=== PATIENT | female | born 1935 | race African-American/Black ===

== ENCOUNTER 2017-12-23 14:10 | Emergency (ER) | payer OTHER, SELFPAY ==
--- NOTE | 2017-12-23 15:17 | RAD REPORT ---
EXAM DESCRIPTION: RAD - Chest Single View - 12/23/2017 2:56 pm CLINICAL HISTORY: Weakness, GI bleed, abdominal pain COMPARISON: March 2017 TECHNIQUE: AP portable chest image was obtained 1449 hours . FINDINGS: No peripheral mass, consolidation or failure finding. Heart size is upper normal similar t o comparison. Acute failure findings are not suspected. No measurable pleural effusion and no pneumot horax. Prominent shoulder joint degenerative changes are present. No acute bone findings seen. Aortic calcifications are present. No new or progressive aortic finding seen. IMPRESSION: No acute cardiopulmonary process. Above detailed chest findings are stable from March 2017.
[2017-12-23 15:25] LABS: Absolute Lymphocytes (CBC) 0.8 K/uL (0.7-4.9); Absolute Monocytes 0.5 K/uL (0.1-1.3); Absolute Neutrophil 3.6 K/uL (1.8-8.0); Basophils % 0.3 % (0-1.3); Eosinophils % 1.8 % (0-4.4); Hematocrit 32.1 % (36.0-45.0); Lymphocytes % 16.4 % (15.3-44.8); MCH 28.4 pg (27.0-35.0); MCV 86.5 fL (80-100); Monocytes % 10.6 % (3.3-12.3); RBC Red Blood Cell Count 3.71 M/uL (3.86-4.86)
[2017-12-23 15:32] LABS: Protime INR 1.08
[2017-12-23 15:38] LABS: Potassium 4.1 mEq/L (3.6-5.0)
[2017-12-23 15:45] LABS: Albumin 3.6 g/dL (3.2-5.5); Bilirubin Direct 0.1 mg/dL (0-0.2); Bilirubin Total 0.5 mg/dL (0.3-1.2); Protein, Total 6.9 g/dL (6.0-8.3)
--- NOTE | 2017-12-23 16:01 | RAD REPORT ---
EXAM DESCRIPTION: CT - Stone Protocol - 12/23/2017 3:36 pm CLINICAL HISTORY: Abdominal pain, black mello stools COMPARISON: CT imaging March 2017 TECHNIQUE: Axial 5 mm thick images were obtained without oral or IV contrast. The [id number] span s the entirety of the system including uppermost abdomen and lung bases. All CT scans are performed using dose optimization technique as appropriate and may include automated exposure control or mA/KV adjustment according to patient size. FINDINGS: No hydronephrosis is present and no obstructing ureteral calculi. No suspicious renal mass es. Isodense masses and pyelonephritis are not excluded on a stone protocol CT scan. Urinary bladder is mostly contracted. [place] artifact from the right hip prosthesis limits bladder and pelvic floor as sessment. No bladder calculi suspected. Imaged portions of the liver, spleen and pancreas show no suspicious findings on non-contrast imaging . Cholecystectomy clips are present. The prominence of the biliary tree not outside of normal range f or post cholecystectomy status. No significant adrenal finding. No gastric dilatation or gastric wall thickening. No dilated small bowel or focal small bowel finding . Moderate stool volume scattered in the colon. No colon mass or active colon process identifiable. No hernia, mass or bulky lymphadenopathy noted. No free air, free fluid or inflammatory stranding. Disc and bony degenerative changes are present. An acute bone process is not seen. IMPRESSION: No mass, free air or other emergent CT abdomen and pelvis finding. The above detailed findings are not substantially different from comparison. Isodense masses and pyelonephritis are not excluded on stone protocol technique.
[2017-12-23] MEDS ORDERED: NA CHLORIDE 0.9% 1,000 ML ONE (16:46)
--- NOTE | 2017-12-23 17:37 | ER ---
Nurse's Notes [facility] Name: Nishant Finney Age: 82 yrs Sex: Female : 1935 Arrival Date: 12/23/2017 Time: 14:14 Bed 7 Private MD: Chucky Hernandez R Diagnosis: Encounter for screening for upper gastrointestinal disorder Presentation: 12/23 14:17 Presenting complaint: Patient states: i have been having black tarry stools since tw2 Friday, but none yesterday or today. Transition of care: patient was not received from another setting of care. Onset of symptoms was December 23, 2017. Risk Assessment: Do you want to hurt yourself or someone else? Patient reports no desire to harm self or others. Initial Sepsis Screen: Does the patient meet any 2 criteria? No. Patient's initial sepsis screen is negative. Does the patient have a suspected source of infection? No. Patient's initial sepsis screen is negative. Care prior to arrival: None. 14:17 Method Of Arrival: Wheelchair tw2 14:17 Acuity: JONO 3 tw2 Historical: - Allergies: 14:19 Codeine; tw2 - PMHx: 14:19 Diabetes - NIDDM; Hypertension; Rheumatoid Arthritis; tw2 - PSHx: 14:19 Hip replacement R; Hysterectomy; Appendectomy; R knee replacement x2; tw2 - Immunization history:: Adult Immunizations up to date. - Social history:: Smoking status: Patient/guardian denies using tobacco. - Ebola Screening: : Patient negative for fever greater than or equal to 101.5 degrees Fahrenheit, and additional compatible Ebola Virus Disease symptoms. Screenin:08 Abuse screen: Denies threats or abuse. Nutritional screening: No deficits noted. ae1 Tuberculosis screening: No symptoms or risk factors identified. Fall Risk None identified. Assessment: 15:03 General: Appears in no apparent distress. comfortable, Behavior is calm, cooperative. ae1 Pain: Denies pain. Neuro: Level of Consciousness is awake, alert, obeys commands, Oriented to person, place, time, situation. Cardiovascular: Heart tones S1 S2 present Patient's skin is warm and dry. Respiratory: Airway is patent Respiratory effort is even, unlabored, Respiratory pattern is regular, symmetrical, Breath sounds are clear bilaterally. GI: Abdomen is round Bowel sounds present X 4 quads. GI: Reports bloody stool. : No signs and/or symptoms were reported regarding the genitourinary system. EENT: wears glasses. . Derm: Skin is normal. Musculoskeletal: No signs and/or symptoms reported regarding the musculoskeletal system. 15:07 GI: Reports Patient states stools have been "black". ae1 16:02 Reassessment: Patient appears in no apparent distress at this time. No changes from ae1 previously documented assessment. Patient and/or family updated on plan of care and expected duration. Pain level reassessed. Vital Signs: 14:18 BP 117 / 48; Pulse 71; Resp 16; Temp 98.2(O); Pulse Ox 99% on R/A; Weight 66.22 kg (R); tw2 Height 5 ft. 3 in. (160.02 cm); Pain 0/10; 16:01 BP 145 / 48; Pulse 75; Resp 16; Pulse Ox 100% on R/A; ae1 17:15 BP 147 / 49; Pulse 76; Resp 19; Pulse Ox 100% ; ae1 14:18 Body Mass Index 25.86 (66.22 kg, 160.02 cm) tw2 ED Course: 14:14 Patient arrived in ED. rg4 14:15 Chucky Hernandez MD is Private Physician. rg4 14:17 Triage completed. tw2 14:18 Arm band placed on. tw2 14:20 Jeffrey Lee MD is Attending Physician. gs 14:37 EKG done, by technical photographer. reviewed by Jeffrey Lee MD. sm3 14:45 X-ray completed. Portable x-ray completed in exam room. Patient tolerated procedure jb2 well. 14:48 XRAY Chest (1 view) In Process Unspecified. EDMS 14:53 Inserted saline lock: 20 gauge in right antecubital area, using aseptic technique. ag Blood collected. 14:57 Lawrence Anton, LISA is Primary Nurse. ae1 15:07 Bed in low position. Call light in reach. Side rails up X 1. unemployment specialist on. Pulse ae1 ox on. NIBP on. Warm blanket given. 15:35 CT completed. Patient tolerated procedure well. Patient moved to CT via wheelchair. sj Patient moved back from CT. 15:35 CT Stone Protocol In Process Unspecified. 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 ae1 17:35 Sofiya Cardenas MD is Referral Physician. gs 17:35 Jaxon Garcia MD is Referral Physician. 18:14 IV discontinued, intact, bleeding controlled, No redness/swelling at site. Pressure ae1 dressing applied. Administered Medications: 16:47 Drug: NS 0.9% 1000 ml Route: IV; Rate: 1 bolus; Site: right antecubital; ae1 18:14 Follow up: IV Status: Completed infusion ae1 Outcome: 17:36 Discharge ordered by MD. 18:11 Discharged to home ambulatory, with family, with personal single crutch to assist with ae1 walking. 18:11 Condition: stable 18:11 Instructed on discharge instructions, follow up and referral plans. medication usage, Demonstrated understanding of instructions, Prescriptions given X 1. 18:14 Patient left the ED. ae1 Signatures: Dispatcher [employer] EDMS Everardo Briceno Susan sj Gallardo, Kat Mcduffie RN RN tw2 Lawrence Anton RN RN ae1 Zunilda Blackmon rg4 Jeffrey Lee MD MD Jaqueline Walker sm3 Corrections: (The following items were deleted from the chart) 14:19 14:18 Pulse 71bpm; Resp 16bpm; Pulse Ox 99% RA; Temp 98.2F Oral; 66.22 kg Reported; tw2 Height 5 ft. 3 in.; BMI: 25.8; Pain 0/10; tw2
--- NOTE | 2017-12-23 17:37 | EDPHYS ---
Physician Documentation [facility] Name: Nishant Finney Age: 82 yrs Sex: Female : 1935 Arrival Date: 12/23/2017 Time: 14:14 Bed 7 Private MD: Chucky Hernandez R ED Physician Jeffrey Lee HPI: 12/23 17:31 This 82 yrs old Black Female presents to ER via Wheelchair with complaints of DARK gs Stools. 17:31 The patient presents to the emergency department with rectal bleeding, melena. Onset: gs The symptoms/episode began/occurred 3 day(s) ago. Abdominal pain: none is appreciated. Associated signs and symptoms: Pertinent negatives: chest pain, dizziness at rest, dizziness when standing. Severity of symptoms: in the emergency department the symptoms have resolved 24 hour(s) prior to arrival. The patient has experienced similar episodes in the past, a few times. Historical: - Allergies: 14:19 Codeine; tw2 - PMHx: 14:19 Diabetes - NIDDM; Hypertension; Rheumatoid Arthritis; tw2 - PSHx: 14:19 Hip replacement R; Hysterectomy; Appendectomy; R knee replacement x2; tw2 - Immunization history:: Adult Immunizations up to date. - Social history:: Smoking status: Patient/guardian denies using tobacco. - Ebola Screening: : Patient negative for fever greater than or equal to 101.5 degrees Fahrenheit, and additional compatible Ebola Virus Disease symptoms. ROS: 17:31 All other systems are negative. gs Exam: 17:31 Head/Face: Normocephalic, atraumatic. Eyes: Pupils equal round and reactive to light, gs extra-ocular motions intact. Lids and lashes normal. Conjunctiva and sclera are non-icteric and not injected. Cornea within normal limits. Periorbital areas with no swelling, redness, or edema. ENT: Nares patent. No nasal discharge, no septal abnormalities noted. Tympanic membranes are normal and external auditory canals are clear. Oropharynx with no redness, swelling, or masses, exudates, or evidence of obstruction, uvula midline. Mucous membranes moist. Neck: Trachea midline, no thyromegaly or masses palpated, and no cervical lymphadenopathy. Supple, full range of motion without nuchal rigidity, or vertebral point tenderness. No Meningismus. Chest/axilla: Normal chest wall appearance and motion. Nontender with no deformity. No lesions are appreciated. Cardiovascular: Regular rate and rhythm with a normal S1 and S2. No gallops, murmurs, or rubs. Normal PMI, no JVD. No pulse deficits. Respiratory: Lungs have equal breath sounds bilaterally, clear to auscultation and percussion. No rales, rhonchi or wheezes noted. No increased work of breathing, no retractions or nasal flaring. Abdomen/GI: Soft, non-tender, with normal bowel sounds. No distension or tympany. No guarding or rebound. No evidence of tenderness throughout. Back: No spinal tenderness. No costovertebral tenderness. Full range of motion. Skin: Warm, dry with normal turgor. Normal color with no rashes, no lesions, and no evidence of cellulitis. MS/ Extremity: Pulses equal, no cyanosis. Neurovascular intact. Full, normal range of motion. Neuro: Awake and alert, GCS 15, oriented to person, place, time, and situation. Cranial nerves II-XII grossly intact. Motor strength 5/5 in all extremities. Sensory grossly intact. Cerebellar exam normal. Normal gait. 17:31 Constitutional: The patient appears alert, awake. 17:31 Abdomen/GI: Rectal exam: Stool: normal. 17:37 ECG was reviewed by the Attending Physician. Vital Signs: 14:18 BP 117 / 48; Pulse 71; Resp 16; Temp 98.2(O); Pulse Ox 99% on R/A; Weight 66.22 kg (R); tw2 Height 5 ft. 3 in. (160.02 cm); Pain 0/10; 16:01 BP 145 / 48; Pulse 75; Resp 16; Pulse Ox 100% on R/A; ae1 17:15 BP 147 / 49; Pulse 76; Resp 19; Pulse Ox 100% ; ae1 14:18 Body Mass Index 25.86 (66.22 kg, 160.02 cm) tw2 MDM: 14:37 Patient medically screened. 17:31 Differential diagnosis: gastritis, diverticulitis, hemorrhoids. Data reviewed: vital gs signs, nurses notes. Response to treatment: the patient's symptoms have markedly improved after treatment, and as a result, I will discharge patient. 12/23 14:26 Order name: Basic Metabolic Panel; Complete Time: 15:50 12/23 14:26 Order name: CBC with Diff; Complete Time: 15:50 12/23 14:26 Order name: LFT's; Complete Time: 15:50 12/23 14:26 Order name: PT-INR; Complete Time: 15:50 12/23 14:26 Order name: XRAY Chest (1 view); Complete Time: 15:50 12/23 14:26 Order name: Lipase; Complete Time: 15:50 12/23 14:26 Order name: EKG; Complete Time: 14:27 12/23 14:26 Order name: Cardiac monitoring; Complete Time: 14:53 12/23 14:26 Order name: EKG - Nurse/Tech; Complete Time: 14:52 12/23 14:26 Order name: IV Saline Lock; Complete Time: 14: 12/23 14:26 Order name: Labs collected and sent; Complete Time: 14:52 12/23 14:26 Order name: O2 Per Protocol; Complete Time: 14: 12/23 15:15 Order name: CT Stone Protocol; Complete Time: 16:15 12/23 14:26 Order name: O2 Sat Monitoring; Complete Time: 14:53 12/23 14:26 Order name: Urine Dipstick-Ancillary (obtain specimen); Complete Time: 14:53 gs EC:37 Rate is 66 beats/min. Rhythm is regular. QRS interval is prolonged. T waves are Normal. gs No ST changes noted. Clinical impression: Abnormal EKG without significant change. Interpreted by me. Administered Medications: 16:47 Drug: NS 0.9% 1000 ml Route: IV; Rate: 1 bolus; Site: right antecubital; ae1 18:14 Follow up: IV Status: Completed infusion ae1 Disposition: 12/23/17 17:36 Discharged to Home. Impression: Encounter for screening for upper gastrointestinal disorder. - Condition is Stable. - Discharge Instructions: Gastritis, Adult. - Prescriptions for Pepcid 20 mg Oral Tablet - take 1 tablet by ORAL route every 12 hours for 10 days; 20 tablet. - Medication Reconciliation Form, Thank You Letter, Antibiotic Education, Prescription Opioid Use form. - Follow up: Sofiya Cardenas MD; When: 2 - 3 days; Reason: Re-evaluation by your physician. Follow up: Radha, Jaxon, MD; When: 2 - 3 days; Reason: Re-evaluation by your physician. Signatures: Dispatcher [employer] Kat Pedroza RN RN tw2 Lawrence Anton RN RN ae1 Jeffrey Lee MD MD gs Corrections: (The following items were deleted from the chart) 18:14 17:36 12/23/2017 17:36 Discharged to Home. Impression: Encounter for screening for ae1 upper gastrointestinal disorder. Condition is Stable. Forms are Medication Reconciliation Form, Thank You Letter, Antibiotic Education, Prescription Opioid Use. Follow up: Sofiya Cardenas; When: 2 - 3 days; Reason: Re-evaluation by your physician. Follow up: Jaxon Garcia; When: 2 - 3 days; Reason: Re-evaluation by your physician. gs
[2017-12-23 18:24] VITALS: TEMP 98.2
[2017-12-23 18:26] VITALS: O2SAT 100
[2017-12-23 18:27] VITALS: BP 147/49
--- NOTE | 2017-12-23 18:34 | EKG ---
Test Date: 2017-12-23 Test Time: 14:37:54 Vocational Education Professional: DARLIN MEASUREMENT RESULTS: Intervals: Rate: 66 RI: 140 QRSD: 140 QT: 400 QTc: 419 [place]: P: 54 RI: 140 QRS: -24 T: 130 INTERPRETIVE STATEMENTS: Normal sinus rhythm Left bundle branch block Abnormal ECG Compared to ECG 03/22/2017 06:56:19 No significant changes Electronically Signed On 12-23-17 18:33:24 CDT by Loyd Stoddard
== END 2017-12-23 18:14 | disposition home or self-care (01) ==
LOC: ER 14:10
DX: Z13.810 Encounter for screening for upper gastrointestinal disorder (principal); I10 Essential (primary) hypertension; Z88.5 Allergy status to narcotic agent
CPT/HCPCS: 36415; 71045; 74176; 76377; 80048; 80076; 83690; 85025; 85610; 93005; J7030; 96360; 99285

== ENCOUNTER 2017-12-29 00:56 | Emergency (ER) | payer OTHER, SELFPAY ==
[2017-12-29] MEDS ORDERED: FENTANYL CITR 100 MCG/2 ML ONE (01:55)
[2017-12-29] MEDS ORDERED: ONDANSETRON 4 MG/2 ML VIAL ONE (01:56)
[2017-12-29] MEDS ORDERED: ACETAMINOPHEN 500 MG TAB ONE (01:56)
[2017-12-29 02:11] LABS: Absolute Lymphocytes (CBC) 0.4 K/uL (0.7-4.9); Absolute Monocytes 0.5 K/uL (0.1-1.3); Absolute Neutrophil 7.5 K/uL (1.8-8.0); Basophils % 0.3 % (0-1.3); Eosinophils % 0.1 % (0-4.4); Hematocrit 31.1 % (36.0-45.0); Lymphocytes % 4.3 % (15.3-44.8); MCH 28.7 pg (27.0-35.0); MCV 87.4 fL (80-100); Monocytes % 6.3 % (3.3-12.3); RBC Red Blood Cell Count 3.56 M/uL (3.86-4.86)
[2017-12-29 02:22] LABS: Potassium 3.7 mEq/L (3.6-5.0)
[2017-12-29 02:29] LABS: Albumin 3.4 g/dL (3.2-5.5); Bilirubin Direct 0.1 mg/dL (0-0.2); Bilirubin Total 0.7 mg/dL (0.3-1.2); Protein, Total 6.6 g/dL (6.0-8.3)
[2017-12-29 02:46] LABS: Blood Morphology Comment NOT SEEN (NOT SEEN); Platelet Estimate ADEQ; Urine White Blood Cell Casts OK
[2017-12-29 03:41] LABS: Urine Bacteria >50 /HPF (<20); Urine Culture Reflex Order REFLEXED
[2017-12-29] MEDS ORDERED: CEFTRIAXONE/SWI 1gm 1 GM/10 ML SYR ONE ×2 (04:00→04:05)
[2017-12-29 04:42] LABS: Urine Blood 2+ (NEG); Urine Glucose NEGATIVE (NEG); Urine Protein 2+ (NEG)
--- NOTE | 2017-12-29 05:09 | ER ---
Nurse's Notes [facility] Name: Nishant Finney Age: 82 yrs Sex: Female : 1935 Arrival Date: 12/29/2017 Time: 01:03 Bed 17 Private MD: Chucky Hernandez R Diagnosis: Acute Urinary Tract Infection;Low abdominal pain Presentation: 12/29 01:15 Presenting complaint: Patient states: she was seen here on Friday with abdominal pain bb but thinks she has a UTI due to foul smelling urine and flank pain. Transition of care: patient was not received from another setting of care. Onset of symptoms was December 29, 2017. Risk Assessment: Do you want to hurt yourself or someone else? Patient reports no desire to harm self or others. Initial Sepsis Screen: Does the patient meet any 2 criteria? No. Patient's initial sepsis screen is negative. Does the patient have a suspected source of infection? No. Patient's initial sepsis screen is negative. Care prior to arrival: None. 01:15 Method Of Arrival: Wheelchair bb 01:15 Acuity: JONO 3 bb Historical: - Allergies: 01:17 Codeine; bb - Home Meds: 01:17 Advair Diskus inhalation Inhl [Active]; amitriptyline 75 mg Oral tab once daily bb [Active]; amlodipine 10 mg tab 1 tab once daily [Active]; aspirin 81 mg Oral TbEC 1 tab once daily [Active]; atorvastatin 20 mg Oral tab 1 tab once daily [Active]; clopidogrel 75 mg Oral tab 1 tab once daily [Active]; Dulera 200-5 mcg/actuation inhalation HFAA [Active]; metoprolol succinate 100 mg Oral Tb24 twice a day [Active]; sulfasalazine 500 mg Oral tab 3 tab twice a day [Active]; valsartan-hydrochlorothiazide 320-25 mg Oral tab once daily [Active]; - PMHx: 01:17 Diabetes - NIDDM; Hypertension; Rheumatoid Arthritis; bb - PSHx: 01:17 Hip replacement R; Hysterectomy; Appendectomy; R knee replacement x2; bb - Immunization history:: Adult Immunizations up to date, Flu vaccine is not up to date. - Social history:: Smoking status: Patient/guardian denies using tobacco. - Ebola Screening: : No symptoms or risks identified at this time. Screenin:29 Abuse screen: Denies threats or abuse. Denies injuries from another. Nutritional ao screening: No deficits noted. Tuberculosis screening: No symptoms or risk factors identified. Fall Risk None identified. Assessment: 02:26 General: Appears in no apparent distress. uncomfortable, Behavior is calm, cooperative, ao appropriate for age. Pain: Complains of pain in abdomen. Neuro: Level of Consciousness is awake, alert, obeys commands, Oriented to person, place. Cardiovascular: Capillary refill < 3 seconds Patient's skin is warm and dry. Respiratory: Airway is patent Respiratory effort is even, unlabored, Respiratory pattern is regular, symmetrical. GI: Abdomen is non-distended. : Reports inability to void. EENT: No signs and/or symptoms were reported regarding the EENT system. Derm: No signs and/or symptoms reported regarding the dermatologic system. Musculoskeletal: Range of motion: intact in all extremities. 03:32 Reassessment: Patient appears in no apparent distress at this time. Patient and/or ao family updated on plan of care and expected duration. Pain level reassessed. Patient is alert, oriented x 3, equal unlabored respirations, skin warm/dry/pink. 04:37 Reassessment: Patient appears in no apparent distress at this time. Patient and/or ao family updated on plan of care and expected duration. Pain level reassessed. Patient is alert, oriented x 3, equal unlabored respirations, skin warm/dry/pink. Patient denies pain at this time. Patient states feeling better. 05:33 Reassessment: DC instructions given to patient and family member. Patient understand ao the POC and to follow up with PCP. No questions at this time. Vital Signs: 01:17 BP 132 / 41; Pulse 103; Resp 20 S; Temp 99.8(O); Pulse Ox 97% on R/A; Weight 66.68 kg bb (M); Height 5 ft. 3 in. (160.02 cm) (R); Pain 9/10; 02:10 BP 112 / 62; Pulse 101; Resp 20; Pulse Ox 100% on R/A; ao 03:32 BP 106 / 61; Pulse 96; Resp 18; Pulse Ox 96% ; Pain 0/10; ao 04:37 BP 108 / 48; Pulse 107; Resp 18; Pulse Ox 100% on R/A; Pain 0/10; ao 05:33 BP 125 / 65; Pulse 94; Resp 18; Pulse Ox 97% on R/A; Pain 0/10; ao 01:17 Body Mass Index 26.04 (66.68 kg, 160.02 cm) karen ED Course: 01:03 Patient arrived in ED. al2 01:04 Chucky Hernandez MD is Private Physician. al2 01:16 Triage completed. bb 01:17 Arm band placed on left wrist. Family accompanied patient. bb 01:26 Jaxon Marrufo MD is Attending Physician. wa 01:51 Gurwinder Wong RN is Primary Nurse. ao 02:11 Inserted saline lock: 22 gauge in right wrist, using aseptic technique. Blood collected.bp 02:29 Patient has correct armband on for positive identification. Pulse ox on. NIBP on. ao 05:32 No provider procedures requiring assistance completed. IV discontinued, intact, ao bleeding controlled, No redness/swelling at site. Pressure dressing applied. Administered Medications: 02:20 Drug: Zofran 4 mg Route: IVP; Site: right hand; ao 03:31 Follow up: Response: No adverse reaction ao 02:20 Drug: fentaNYL (PF) 25 mcg Route: IVP; Site: right hand; ao 03:31 Follow up: Response: No adverse reaction ao 02:21 Drug: Tylenol 1000 mg Route: PO; ao 03:31 Follow up: Response: No adverse reaction ao 04:20 Drug: Rocephin - (cefTRIAXone) 2 grams Route: IVPB; Infused Over: 30 mins; Site: right ao hand; 05:38 Follow up: Response: No adverse reaction; IV Status: Completed infusion; IV Intake: 10mlao Intake: 05:38 IV: 10ml; Total: 10ml. ao Outcome: 05:08 Discharge ordered by . wa 05:32 Discharged to home via wheelchair. ao 05:32 Condition: stable 05:32 Discharge instructions given to patient, Instructed on discharge instructions, follow up and referral plans. Demonstrated understanding of instructions, follow-up care, medications, Prescriptions given X 1. 05:35 Patient left the ED. ao Addendum: 01/01/2018 09:02 Addendum: Culture Results: Positive urine culture. No further action required. Bacteria a a5 sensitive to prescribed antibiotic. Signatures: Nancy Driscoll RN RN bb Ethel Squires, RN RN aa5 Gurwinder Wong, RN RN ao Jaxon Marrufo MD MD wa Peltier, Brian, RN RN bp Giang, Suze resendiz
--- NOTE | 2017-12-29 05:09 | EDPHYS ---
Physician Documentation [facility] Name: Nishant Finney Age: 82 yrs Sex: Female : 1935 Arrival Date: 12/29/2017 Time: 01:03 Bed 17 Private MD: Chukcy Hernandez R ED Physician Jaxon Marrufo Historical: - Allergies: 12/29 01:17 Codeine; bb - Home Meds: 01:17 Advair Diskus inhalation Inhl [Active]; amitriptyline 75 mg Oral tab once daily bb [Active]; amlodipine 10 mg tab 1 tab once daily [Active]; aspirin 81 mg Oral TbEC 1 tab once daily [Active]; atorvastatin 20 mg Oral tab 1 tab once daily [Active]; clopidogrel 75 mg Oral tab 1 tab once daily [Active]; Dulera 200-5 mcg/actuation inhalation HFAA [Active]; metoprolol succinate 100 mg Oral Tb24 twice a day [Active]; sulfasalazine 500 mg Oral tab 3 tab twice a day [Active]; valsartan-hydrochlorothiazide 320-25 mg Oral tab once daily [Active]; - PMHx: 01:17 Diabetes - NIDDM; Hypertension; Rheumatoid Arthritis; bb - PSHx: 01:17 Hip replacement R; Hysterectomy; Appendectomy; R knee replacement x2; bb - Immunization history:: Adult Immunizations up to date, Flu vaccine is not up to date. - Social history:: Smoking status: Patient/guardian denies using tobacco. - Ebola Screening: : No symptoms or risks identified at this time. Vital Signs: 01:17 BP 132 / 41; Pulse 103; Resp 20 S; Temp 99.8(O); Pulse Ox 97% on R/A; Weight 66.68 kg bb (M); Height 5 ft. 3 in. (160.02 cm) (R); Pain 9/10; 02:10 BP 112 / 62; Pulse 101; Resp 20; Pulse Ox 100% on R/A; ao 03:32 BP 106 / 61; Pulse 96; Resp 18; Pulse Ox 96% ; Pain 0/10; ao 04:37 BP 108 / 48; Pulse 107; Resp 18; Pulse Ox 100% on R/A; Pain 0/10; ao 05:33 BP 125 / 65; Pulse 94; Resp 18; Pulse Ox 97% on R/A; Pain 0/10; ao 01:17 Body Mass Index 26.04 (66.68 kg, 160.02 cm) bb MDM: 01:26 Patient medically screened. fl 12/29 01:36 Order name: Basic Metabolic Panel; Complete Time: 03:55 fl 12/29 01:36 Order name: CBC with Diff; Complete Time: 03:55 fl 12/29 01:36 Order name: Hepatic Function; Complete Time: 03:56 fl 12/29 01:36 Order name: Lipase; Complete Time: 03:55 fl 12/29 01:36 Order name: Urine Microscopic Only; Complete Time: 03:56 fl 12/29 02:46 Order name: CBC Smear Scan; Complete Time: 04:35 EDIL 12/29 01:36 Order name: IV Saline Lock; Complete Time: 02:10 fl 12/29 03:28 Order name: Urine Dipstick--Ancillary (enter results); Complete Time: 14:32 [facility] 12/29 03:42 Order name: Urine Culture; Complete Time: 14:32 [facility] 12/29 01:36 Order name: Labs collected and sent; Complete Time: 02:10 fl 12/29 01:36 Order name: Urine Dipstick-Ancillary (obtain specimen); Complete Time: 03:31 fl Administered Medications: 02:20 Drug: Zofran 4 mg Route: IVP; Site: right hand; ao 03:31 Follow up: Response: No adverse reaction ao 02:20 Drug: fentaNYL (PF) 25 mcg Route: IVP; Site: right hand; ao 03:31 Follow up: Response: No adverse reaction ao 02:21 Drug: Tylenol 1000 mg Route: PO; ao 03:31 Follow up: Response: No adverse reaction ao 04:20 Drug: Rocephin - (cefTRIAXone) 2 grams Route: IVPB; Infused Over: 30 mins; Site: right ao hand; 05:38 Follow up: Response: No adverse reaction; IV Status: Completed infusion; IV Intake: 10mlao Disposition: 12/29/17 05:08 Discharged to Home. Impression: Acute Urinary Tract Infection, Low abdominal pain. - Condition is Stable. - Discharge Instructions: Urinary Tract Infection, [id number]. - Prescriptions for Augmentin 875- 125 mg Oral Tablet - take 1 tablet by ORAL route every 12 hours for 3 days; 6 tablet. - Medication Reconciliation Form, Thank You Letter, Antibiotic Education, Prescription Opioid Use form. - Follow up: Private Physician; When: 2 - 3 days; Reason: Re-evaluation by your physician. - Problem is new. - Symptoms have improved. - Notes: follow up with your doctor within 2 days. return for rapidly worsening concerns Addendum: 01/01/2018 14:37 Addendum: CC: abd pain, flank pain. foul-smelling urine. "I think I have a UTI." HPI: w a pt w/ above complaints states x 3 days. seen here a couple days ago and obtained CT. states no UA was done. denies fever or vomiting. admits to suprapubic discomfort. PMHx: DM, HTN. SHx: denies smoking. denies ETOH. PSurgHx: R hip replacement. R knee replacement. hysterectomy. appendectomy. Meds: see nursing record. Allergies: codeine. ROS: all ROS negative except dysuria, abd pain and flank pain. EXAM: Const: NAD. afebrile. HEENT: NCAT. throat clear. CVS: N S1 S2. no murmurs. Chest: clear. Abd: mildly tender over suprapubis. no distension. nml bowel sounds. EXT: no swelling. Neuro: alert. no lateralizing abnormalities. nml strength. MDM: pt declined CT as had one recently. will treat pain. check labs, r/o UTI. reassess. Results: labs noted for anemia, pyuria, renal insufficiency. ED course: pain resolved with pain meds. IV abx given. d/c'd with abx and close f/u with dx of UTI and abd pain. Signatures: Dispatcher [employer] EDMS Nancy Driscoll RN RN Gurwinder Sheehan RN RN ao Appiah, William, MD MD wa Corrections: (The following items were deleted from the chart) 12/29 05:35 05:08 12/29/2017 05:08 Discharged to Home. Impression: Acute Urinary Tract Infection; ao Low abdominal pain. Condition is Stable. Forms are Medication Reconciliation Form, Thank You Letter, Antibiotic Education, Prescription Opioid Use. Follow up: Private Physician; When: 2 - 3 days; Reason: Re-evaluation by your physician. Problem is new. Symptoms have improved. wa
[2017-12-29 05:39] VITALS: TEMP 99.8
[2017-12-29 05:44] VITALS: BP 125/65; O2SAT 97
== END 2017-12-29 05:35 | disposition home or self-care (01) ==
LOC: ER 00:56
DX: N39.0 Urinary tract infection, site not specified (principal); I10 Essential (primary) hypertension; E11.9 Type 2 diabetes mellitus without complications; Z79.82 Long term (current) use of aspirin
CPT/HCPCS: 36415; 80048; 80076; 83690; 85025; 87077; 87086; 87088; 87186; 96365; 96375; 99284; J0696 ×2; J2405; J3010; 81003; 81015

== ENCOUNTER 2018-06-17 05:24 | Emergency (ER) | payer OTHER ==
[2018-06-17 06:24] LABS: Absolute Lymphocytes (CBC) 0.8 K/uL (0.7-4.9); Absolute Monocytes 0.9 K/uL (0.1-1.3); Basophils % 0.4 % (0-1.3); Eosinophils % 0.9 % (0-4.4); Hematocrit 34.8 % (36.0-45.0); MCH 28.6 pg (27.0-35.0); MCV 87.1 fL (80-100); MPV 8.5 fL (7.6-11.3); Monocytes % 8.2 % (3.3-12.3)
[2018-06-17 07:32] LABS: Protime INR 1.12
[2018-06-17 07:41] LABS: Albumin 3.2 g/dL (3.4-5.0); Bilirubin Direct 0.2 mg/dL (0-0.2); Bilirubin Total 0.6 mg/dL (0.2-1.0); Potassium 4.3 mmol/L (3.5-5.1); Protein, Total 6.9 g/dL (6.4-8.2); Troponin (Emerg Dept Use Only) 0.02 ng/mL (0.0-0.045)
--- NOTE | 2018-06-17 08:24 | RAD REPORT ---
EXAM DESCRIPTION: RAD - Chest Single View - 06/17/2018 6:21 am CLINICAL HISTORY: FEVER Chest pain. COMPARISON: Chest Single View dated 12/23/2017; Chest Single View dated 03/21/2017; CHEST SINGLE VIEW dated 09/26/2015; CHEST SINGLE VIEW dated 09/24/2015 FINDINGS: Portable technique limits examination quality. The lungs are grossly clear. The heart is upper limit normal in size with a tortuous and atherosclero tic aorta. No displaced fractures. IMPRESSION: No acute intrathoracic process suspected.
[2018-06-17] MEDS ORDERED: CEFTRIAXONE/SWI 1gm 1 GM/10 ML SYR ONE (08:34)
--- NOTE | 2018-06-17 08:38 | ER ---
Nurse's Notes [facility] Name: Nishant Finney Age: 83 yrs Sex: Female : 1935 Arrival Date: 06/17/2018 Time: 05:28 Bed 7 Private MD: Diagnosis: Bronchitis, not specified as acute or chronic;Hemoptysis Presentation: 06/17 05:29 Presenting complaint: Patient states: productive cough with brown mucous since Friday ak1 with SOB. pt c/o discomfort in her chest when she coughs. pt c/o throat pain. Transition of care: patient was not received from another setting of care. Onset of symptoms was June 15, 2018. Risk Assessment: Do you want to hurt yourself or someone else? Patient reports no desire to harm self or others. Initial Sepsis Screen: Does the patient meet any 2 criteria? No. Patient's initial sepsis screen is negative. Does the patient have a suspected source of infection? No. Patient's initial sepsis screen is negative. Care prior to arrival: None. 05:29 Method Of Arrival: EMS: [facility] ak1 05:29 Acuity: JONO 3 ak1 Triage Assessment: 05:35 General: Appears in no apparent distress. Behavior is calm, cooperative. Pain: ak1 Complains of pain in chest Pain does not radiate. EENT: Reports difficulty swallowing nasal congestion pain in throat when swallowing since Friday. Neuro: No deficits noted. Cardiovascular: No deficits noted. Respiratory: Reports cough that is productive, since Friday Airway is patent Onset: The symptoms/episode began/occurred Friday06/15/18, the patient has mild shortness of breath. GI: No signs and/or symptoms were reported involving the gastrointestinal system. : No signs and/or symptoms were reported regarding the genitourinary system. Derm: No signs and/or symptoms reported regarding the dermatologic system. Musculoskeletal: No signs and/or symptoms reported regarding the musculoskeletal system. Historical: - Allergies: 05:35 Codeine; ak1 - Home Meds: 05:35 Advair Diskus inhalation Inhl [Active]; amitriptyline 75 mg Oral tab once daily ak1 [Active]; amlodipine 10 mg tab 1 tab once daily [Active]; aspirin 81 mg Oral TbEC 1 tab once daily [Active]; atorvastatin 20 mg Oral tab 1 tab once daily [Active]; clopidogrel 75 mg Oral tab 1 tab once daily [Active]; Dulera 200-5 mcg/actuation inhalation HFAA [Active]; metoprolol succinate 100 mg Oral Tb24 twice a day [Active]; sulfasalazine 500 mg Oral tab 3 tab twice a day [Active]; valsartan-hydrochlorothiazide 320-25 mg Oral tab once daily [Active]; - PMHx: 05:35 Diabetes - NIDDM; Hypertension; Rheumatoid Arthritis; ak1 - PSHx: 05:35 R knee replacement x2; Appendectomy; Hysterectomy; Hip replacement R; ak1 - Immunization history:: Adult Immunizations unknown, Flu vaccine is not up to date. - Social history:: Smoking status: Patient/guardian denies using tobacco. - Ebola Screening: : No symptoms or risks identified at this time. Screenin:40 Abuse screen: Denies threats or abuse. Denies injuries from another. Nutritional ak1 screening: No deficits noted. Tuberculosis screening: No symptoms or risk factors identified. Fall Risk None identified. Assessment: 06:16 Reassessment: Patient appears in no apparent distress at this time. No changes from ak1 previously documented assessment. see triage assessment. 06:17 Cardiovascular: Rhythm is sinus rhythm. Respiratory: Respiratory effort is unlabored, ak1 Breath sounds are coarse. 07:20 General: Appears comfortable, Behavior is calm, cooperative. Pain: Complains of pain in aa5 whole body Pain does not radiate. Pain currently is 6 out of 10 on a pain scale. Quality of pain is described as aching, Pain began 2-3 days ago. Is continuous. Neuro: Level of Consciousness is awake, alert, obeys commands, Oriented to person, place, time, situation. Cardiovascular: Heart tones S1 S2 present Rhythm is sinus rhythm. Respiratory: Reports cough that is productive, since 2-3 days ago. Pt reports chest congestion. Airway is patent Respiratory effort is even, unlabored, Respiratory pattern is regular, symmetrical, Breath sounds are coarse bilaterally. Denies shortness of breath. GI: Abdomen is round non-distended, Bowel sounds present X 4 quads. Abd is soft and non tender X 4 quads. : No signs and/or symptoms were reported regarding the genitourinary system. EENT: No signs and/or symptoms were reported regarding the EENT system. Derm: Skin is dry, Skin is normal, Skin temperature is warm. Musculoskeletal: Range of motion: intact in all extremities. 07:20 Reassessment: Awaiting lab results and radiology results, pt notified of wait time. . aa5 08:33 Reassessment: Patient appears in no apparent distress at this time. Patient and/or ss family updated on plan of care and expected duration. Pain level reassessed. assisted patient onto bedpan to give urine sample. 08:46 Reassessment: Pt reports that she feels well enough to go home rather than being ss admitted. Vital Signs: 05:35 BP 124 / 53; Pulse 92; Resp 20; Temp 99.6(O); Pulse Ox 100% on R/A; Weight 64.86 kg ak1 (R); Height 5 ft. 3 in. (160.02 cm) (R); Pain 1/10; 06:19 BP 162 / 52; Pulse 82; Resp 20; Temp 99.6(O); Pulse Ox 100% on R/A; ak1 07:20 BP 161 / 56; Pulse 90; Resp 18 S; Temp 99.1(O); Pulse Ox 100% on R/A; Pain 6/10; aa5 08:32 BP 143 / 44; Pulse 96; Resp 18; Pulse Ox 100% on R/A; Pain 0/10; ss 08:44 Temp 98.7(O); dh3 08:45 BP 149 / 89; Pulse 92; ss 05:35 Body Mass Index 25.33 (64.86 kg, 160.02 cm) ak1 ED Course: 05:28 Patient arrived in ED. ak1 05:31 Triage completed. ak1 05:35 Arm band placed on Patient placed in an exam room, on a stretcher, on pulse oximetry, ak1 Patient notified of wait time. 05:41 Patient has correct armband on for positive identification. Bed in low position. Call ak1 light in reach. Side rails up X 1. Pulse ox on. NIBP on. Warm blanket given. 05:47 Jeffrey Lee MD is Attending Physician. 05:53 Kaitlynn Shah, RN is Primary Nurse. ak1 06:14 Flu Sent. ak1 06:15 Initial lab(s) drawn, by me, sent to lab. First set of blood cultures drawn by me, ak1 Second set of blood cultures drawn by me, EKG done, by ED staff, reviewed by Jeffrey Lee MD Flu and/or RSV swab sent to lab. X-ray(s) taken. 06:18 No provider procedures requiring assistance completed. Inserted saline lock: 20 gauge ak1 in right antecubital area, using aseptic technique. Blood collected. 06:20 X-ray completed. Portable x-ray completed in exam room. Patient tolerated procedure kw well. 06:21 Chest Single View XRAY In Process Unspecified. EDMS 07:29 Attending Physician role handed off by Jeffrye Lee MD kdr 07:29 Marcelo Brasher MD is Attending Physician. kdr 09:00 IV discontinued, intact, bleeding controlled, No redness/swelling at site. Pressure ss dressing applied. Administered Medications: 08:34 Not Given (Other Intervention Used; changed per pharmacy instructions): Rocephin - ss (cefTRIAXone) 1 grams IVPB once over 30 mins; (mix in 50 mL NS) 08:36 Drug: Rocephin 1 grams Route: IV; Rate: calculated rate; Site: right antecubital; ss 08:40 Follow up: IV Status: Completed infusion ss 08:47 Follow up: IV Status: Completed infusion ss Point of Care Testing: Blood Glucose: 06:17 Blood Glucose: 119 mg/dL; ak1 Ranges: Outcome: 08:38 Discharge ordered by . kdr 09:00 Discharged to home via wheelchair, with family. ss 09:00 Condition: improved 09:00 Discharge instructions given to patient, family, Instructed on discharge instructions, follow up and referral plans. medication usage, Demonstrated understanding of instructions, follow-up care, medications, Prescriptions given X 2. 09:00 Patient left the ED. ss Signatures: Dispatcher [employer] EDNJ Marcelo Brasher MD MD [facility] E[facility] Squires RN RN aa5 Jeanie Epps RN RN Kelli Guillen Amber, RN RN ak1 [facility] Jeffrey Lee MD MD
--- NOTE | 2018-06-17 08:39 | EDPHYS ---
Physician Documentation [facility] Name: Nishant Finney Age: 83 yrs Sex: Female : 1935 Arrival Date: 06/17/2018 Time: 05:28 Bed 7 Private MD: ED Physician Marcelo Brasher HPI: 06/17 06:11 This 83 yrs old Black Female presents to ER via EMS with complaints of Painful Cough, gs Productive Cough, Shortness Of Breath. 06:11 The patient or guardian reports cough, described as moderate, with productive sputum, gs that is green, that is yellow. Onset: The symptoms/episode began/occurred 2 day(s) ago. Severity of symptoms: At their worst the symptoms were moderate, in the emergency department the symptoms are unchanged. Modifying factors: The symptoms are alleviated by nothing, the symptoms are aggravated by nothing. Associated signs and symptoms: Pertinent positives: chest pain, fever, sore throat. The patient has experienced similar episodes in the past, a few times. The patient has not recently seen a physician. Historical: - Allergies: 05:35 Codeine; ak1 - Home Meds: 05:35 Advair Diskus inhalation Inhl [Active]; amitriptyline 75 mg Oral tab once daily ak1 [Active]; amlodipine 10 mg tab 1 tab once daily [Active]; aspirin 81 mg Oral TbEC 1 tab once daily [Active]; atorvastatin 20 mg Oral tab 1 tab once daily [Active]; clopidogrel 75 mg Oral tab 1 tab once daily [Active]; Dulera 200-5 mcg/actuation inhalation HFAA [Active]; metoprolol succinate 100 mg Oral Tb24 twice a day [Active]; sulfasalazine 500 mg Oral tab 3 tab twice a day [Active]; valsartan-hydrochlorothiazide 320-25 mg Oral tab once daily [Active]; - PMHx: 05:35 Diabetes - NIDDM; Hypertension; Rheumatoid Arthritis; ak1 - PSHx: 05:35 R knee replacement x2; Appendectomy; Hysterectomy; Hip replacement R; ak1 - Immunization history:: Adult Immunizations unknown, Flu vaccine is not up to date. - Social history:: Smoking status: Patient/guardian denies using tobacco. - Ebola Screening: : No symptoms or risks identified at this time. ROS: 06:11 All other systems are negative. gs 08:40 Constitutional: Negative for fever, chills, and weight loss. kdr Exam: 06:11 Head/Face: Normocephalic, atraumatic. Eyes: Pupils equal round and reactive to light, gs extra-ocular motions intact. Lids and lashes normal. Conjunctiva and sclera are non-icteric and not injected. Cornea within normal limits. Periorbital areas with no swelling, redness, or edema. ENT: Nares patent. No nasal discharge, no septal abnormalities noted. Tympanic membranes are normal and external auditory canals are clear. Oropharynx with no redness, swelling, or masses, exudates, or evidence of obstruction, uvula midline. Mucous membranes moist. Neck: Trachea midline, no thyromegaly or masses palpated, and no cervical lymphadenopathy. Supple, full range of motion without nuchal rigidity, or vertebral point tenderness. No Meningismus. Chest/axilla: Normal chest wall appearance and motion. Nontender with no deformity. No lesions are appreciated. Cardiovascular: Regular rate and rhythm with a normal S1 and S2. No gallops, murmurs, or rubs. Normal PMI, no JVD. No pulse deficits. Abdomen/GI: Soft, non-tender, with normal bowel sounds. No distension or tympany. No guarding or rebound. No evidence of tenderness throughout. Back: No spinal tenderness. No costovertebral tenderness. Full range of motion. Skin: Warm, dry with normal turgor. Normal color with no rashes, no lesions, and no evidence of cellulitis. MS/ Extremity: Pulses equal, no cyanosis. Neurovascular intact. Full, normal range of motion. Neuro: Awake and alert, GCS 15, oriented to person, place, time, and situation. Cranial nerves II-XII grossly intact. Motor strength 5/5 in all extremities. Sensory grossly intact. Cerebellar exam normal. Normal gait. 06:11 Constitutional: The patient appears alert, awake. 06:11 Respiratory: the patient does not display signs of respiratory distress, Respirations: normal, no use of accessory muscles, no retractions, Breath sounds: decreased breath sounds, that are mild, are located in both bases. 06:34 ECG was reviewed by the Attending Physician. Vital Signs: 05:35 BP 124 / 53; Pulse 92; Resp 20; Temp 99.6(O); Pulse Ox 100% on R/A; Weight 64.86 kg ak1 (R); Height 5 ft. 3 in. (160.02 cm) (R); Pain 1/10; 06:19 BP 162 / 52; Pulse 82; Resp 20; Temp 99.6(O); Pulse Ox 100% on R/A; ak1 07:20 BP 161 / 56; Pulse 90; Resp 18 S; Temp 99.1(O); Pulse Ox 100% on R/A; Pain 6/10; aa5 08:32 BP 143 / 44; Pulse 96; Resp 18; Pulse Ox 100% on R/A; Pain 0/10; ss 08:44 Temp 98.7(O); dh3 08:45 BP 149 / 89; Pulse 92; ss 05:35 Body Mass Index 25.33 (64.86 kg, 160.02 cm) ak1 MDM: 05:47 Patient medically screened. 06:11 Differential Diagnosis: Influenza Upper Respiratory Infection Viral Syndrome Pneumonia. Data reviewed: vital signs, nurses notes. 07:43 ED course: The patient continues to have blood tinged sputum and chest pain with raspy kdr cough.. ED course: Coarse breathsounds. 06/17 05:54 Order name: Basic Metabolic Panel; Complete Time: 08:04 06/17 05:54 Order name: Blood Culture Adult (2) 06/17 05:54 Order name: CBC with Diff; Complete Time: 07:30 06/17 05:54 Order name: Lactate; Complete Time: 08:04 06/17 05:54 Order name: LFT's; Complete Time: 08:04 06/17 05:54 Order name: Lipase; Complete Time: 08:04 06/17 05:54 Order name: Procalcitonin; Complete Time: 08:04 06/17 05:54 Order name: Protime (+inr); Complete Time: 08:04 06/17 05:54 Order name: Troponin (emerg Dept Use Only); Complete Time: 08:04 06/17 05:54 Order name: Chest Single View XRAY; Complete Time: 08:36 06/17 05:54 Order name: PROBNP; Complete Time: 08:04 06/17 05:54 Order name: Flu 06/17 05:54 Order name: Accucheck; Complete Time: 06:14 06/17 05:54 Order name: Cardiac monitoring; Complete Time: 06:14 06/17 05:54 Order name: EKG - Nurse/Tech; Complete Time: 06:15 06/17 05:54 Order name: IV Saline Lock - Large Bore; Complete Time: 06:15 06/17 05:54 Order name: Labs collected and sent; Complete Time: 06:15 06/17 05:54 Order name: O2 Per Protocol; Complete Time: 06:15 06/17 05:54 Order name: O2 Sat Monitoring; Complete Time: 06:15 06/17 08:23 Order name: EKG Electrocardiogram EDMS EC:34 Rate is 85 beats/min. Rhythm is regular. [place] interval is normal. QRS interval is gs prolonged. T waves are Inverted. Clinical impression: Abnormal EKG without significant change. Interpreted by me. Administered Medications: 08:34 Not Given (Other Intervention Used; changed per pharmacy instructions): Rocephin - ss (cefTRIAXone) 1 grams IVPB once over 30 mins; (mix in 50 mL NS) 08:36 Drug: Rocephin 1 grams Route: IV; Rate: calculated rate; Site: right antecubital; ss 08:40 Follow up: IV Status: Completed infusion ss 08:47 Follow up: IV Status: Completed infusion ss Point of Care Testing: Blood Glucose: 06:17 Blood Glucose: 119 mg/dL; ak1 Ranges: Critical Glucose Levels:Adult <50 mg/dl or >400 mg/dl <40 mg/dl or >180 mg/dl Disposition: 06/17/18 08:38 Discharged to Home. Impression: Bronchitis, not specified as acute or chronic, Hemoptysis. - Condition is Stable. - Discharge Instructions: Acute Bronchitis, Adult, Upper Respiratory Infection, Adult, [id number]. - Prescriptions for Tessalon Perles 100 mg Oral Capsule - take 1 capsule by ORAL route every 8 hours As needed; 15 capsule. Zithromax Z- Jf 250 mg Oral Tablet - take 1 tablet by ORAL route as directed for 5 days Day 1 - take two (2) tablets one time. Day 2, 3, 4 , 5 take one (1) tablet once daily.; 6 tablet. - Medication Reconciliation Form, Thank You Letter, Antibiotic Education form. - Follow up: Private Physician; When: 2 - 3 days; Reason: If symptoms return, Further diagnostic work-up, Recheck today's complaints, Continuance of care, Re-evaluation by your physician. - Problem is new. - Symptoms have improved. Signatures: Dispatcher [employer] Marcelo Stevenson MD MD kdr Jeanie Epps RN RN ss Kaitlynn Shah RN RN ak1 Jeffrey Lee MD MD gs Corrections: (The following items were deleted from the chart) 08:45 05:54 Urine Dipstick-Ancillary ordered. aa5 09:00 08:38 06/17/2018 08:38 Discharged to Home. Impression: Bronchitis, not specified as ss acute or chronic; Hemoptysis. Condition is Stable. Forms are Medication Reconciliation Form, Thank You Letter, Antibiotic Education, Prescription Opioid Use. Follow up: Private Physician; When: 2 - 3 days; Reason: If symptoms return, Further diagnostic work-up, Recheck today's complaints, Continuance of care, Re-evaluation by your physician. Problem is new. Symptoms have improved. kdr
[2018-06-17 09:07] VITALS: O2SAT 100
[2018-06-17 09:11] VITALS: TEMP 98.7
[2018-06-17 09:12] VITALS: BP 149/89
--- NOTE | 2018-06-17 10:09 | EKG ---
Test Date: 2018-06-17 Test Time: 06:03:31 Nursery Helper: CRISS MEASUREMENT RESULTS: Intervals: Rate: 85 HI: 134 QRSD: 132 QT: 386 QTc: 459 [place]: P: 42 HI: 134 QRS: -33 T: 107 INTERPRETIVE STATEMENTS: Normal sinus rhythm Left axis deviation Left bundle branch block Abnormal ECG Compared to ECG 12/23/2017 14:37:54 Left-axis deviation now present Electronically Signed On 06-17-18 10:08:52 SECTION MAINTAINER by Jonathan Zee
== END 2018-06-17 09:00 | disposition home or self-care (01) ==
LOC: ER 05:24
DX: J40 Bronchitis, not specified as acute or chronic (principal); I10 Essential (primary) hypertension; E11.9 Type 2 diabetes mellitus without complications; Z79.82 Long term (current) use of aspirin; Z88.5 Allergy status to narcotic agent
CPT/HCPCS: 36415; 71045; 80048; 80076; 82962; 83605; 83690; 83880; 84145; 84484; 85025; 85610; 87040 ×2; 87804 ×2; 93005; 96374; 99285; J0696

== ENCOUNTER 2019-08-10 16:06 | Emergency (ER) | payer OTHER ==
[2019-08-10 16:46] LABS: Absolute Lymphocytes (CBC) 1.5 K/uL (0.7-4.9); Basophils % 0.5 % (0-1.3); Hematocrit 33.2 % (36.0-45.0); Lymphocytes % 24.2 % (15.3-44.8); MPV 8.6 fL (7.6-11.3); RBC Red Blood Cell Count 3.73 M/uL (3.86-4.86)
[2019-08-10 16:49] LABS: Protime INR 1.14
[2019-08-10 17:13] LABS: Albumin 3.4 g/dL (3.4-5.0); Bilirubin Direct 0.1 mg/dL (0-0.2); Bilirubin Total 0.5 mg/dL (0.2-1.0); Potassium 4.1 mmol/L (3.5-5.1); Protein, Total 6.9 g/dL (6.4-8.2); Troponin (Emerg Dept Use Only) 0.03 ng/mL (0.0-0.045)
[2019-08-10 17:14] LABS: Magnesium 2.3 mg/dL (1.8-2.4)
--- NOTE | 2019-08-10 17:17 | RAD REPORT ---
EXAM DESCRIPTION: RAD - Chest Single View - 08/10/2019 4:50 pm CLINICAL HISTORY: CHEST PAIN Chest pain. COMPARISON: Chest Single View dated 06/17/2018; Chest Single View dated 12/23/2017; Chest Single View dated 03/21/2017; CHEST SINGLE VIEW dated 09/26/2015 FINDINGS: Portable technique limits examination quality. The lungs are grossly clear. The heart is upper limit of normal in size. No displaced fractures. IMPRESSION: No acute intrathoracic process suspected.
[2019-08-10] MEDS ORDERED: cloNIDine HCL 0.1 MG TAB ONE (17:39)
[2019-08-10] MEDS ORDERED: ALBUTEROL 2.5 MG/3 ML NEB SOL ONE (19:08)
--- NOTE | 2019-08-10 20:36 | EDPHYS ---
Physician Documentation [facility] Name: Nishant Finney Age: 84 yrs Sex: Female : 1935 Arrival Date: 08/10/2019 Time: 16:13 Bed 15 Private MD: ED Physician Rogelio Mishra HPI: 08/10 20:24 This 84 yrs old Black Female presents to ER via Wheelchair with complaints of Chest tw4 Pressure. 20:25 This 84 yrs old Black Female presents to ER via Wheelchair with complaints of Chest tw4 Pressure, shortness of breath. 20:25 The patient has shortness of breath at rest. Onset: The symptoms/episode began/occurred tw4 2 week(s) ago. Duration: The symptoms are continuous, and are steadily getting worse. The patient's shortness of breath is aggravated by coughing, is alleviated by nothing. Associated signs and symptoms: Pertinent positives: chest pain, Pertinent negatives: productive cough, diaphoresis, dizziness, hemoptysis, nausea, numbness in extremities. The patient has not experienced similar symptoms in the past. Historical: - Allergies: 16:16 Codeine; em - Home Meds: 18:32 Advair Diskus inhalation Inhl [Active]; amitriptyline 75 mg Oral tab once daily tw2 [Active]; amlodipine 10 mg tab 1 tab once daily [Active]; aspirin 81 mg Oral TbEC 1 tab once daily [Active]; atorvastatin 20 mg Oral tab 1 tab once daily [Active]; clopidogrel 75 mg Oral tab 1 tab once daily [Active]; Dulera 200-5 mcg/actuation inhalation HFAA [Active]; metoprolol succinate 100 mg Oral Tb24 twice a day [Active]; sulfasalazine 500 mg Oral tab 3 tab twice a day [Active]; valsartan-hydrochlorothiazide 320-25 mg Oral tab once daily [Active]; - PMHx: 16:16 Diabetes - NIDDM; Hypertension; Rheumatoid Arthritis; Hyperlipidemia; em - PSHx: 16:16 R knee replacement x2; Appendectomy; Hysterectomy; Hip replacement R; em - Immunization history:: Adult Immunizations not up to date. - Social history:: Smoking status: Patient/guardian denies using tobacco. - Ebola Screening: : Patient negative for fever greater than or equal to 101.5 degrees Fahrenheit, and additional compatible Ebola Virus Disease symptoms Patient denies exposure to infectious person Patient denies travel to an Ebola-affected area in the 21 days before illness onset No symptoms or risks identified at this time. ROS: 20:25 Abdomen/GI: Negative for abdominal pain, nausea, vomiting, diarrhea, and constipation, tw4 Back: Negative for injury and pain, MS/Extremity: Negative for injury and deformity, Skin: Negative for injury, rash, and discoloration, Neuro: Negative for headache, weakness, numbness, tingling, and seizure. 20:25 Cardiovascular: Positive for chest pain. 20:25 Cardiovascular: Positive for chest pain, with cough, with movement. 20:25 Respiratory: Positive for cough, shortness of breath, wheezing, Negative for dyspnea on exertion, hemoptysis. Exam: 20:25 Constitutional: This is a well developed, well nourished patient who is awake, alert, tw4 and in no acute distress. Head/Face: Normocephalic, atraumatic. Eyes: Pupils equal round and reactive to light, extra-ocular motions intact. Lids and lashes normal. Conjunctiva and sclera are non-icteric and not injected. Cornea within normal limits. Periorbital areas with no swelling, redness, or edema. Chest/axilla: Normal chest wall appearance and motion. Nontender with no deformity. No lesions are appreciated. Cardiovascular: Regular rate and rhythm with a normal S1 and S2. No gallops, murmurs, or rubs. Normal PMI, no JVD. No pulse deficits. Respiratory: Lungs have equal breath sounds bilaterally, clear to auscultation and percussion. No rales, rhonchi or wheezes noted. No increased work of breathing, no retractions or nasal flaring. Abdomen/GI: Soft, non-tender, with normal bowel sounds. No distension or tympany. No guarding or rebound. No evidence of tenderness throughout. Back: No spinal tenderness. No costovertebral tenderness. Full range of motion. MS/ Extremity: Pulses equal, no cyanosis. Neurovascular intact. Full, normal range of motion. Neuro: Awake and alert, GCS 15, oriented to person, place, time, and situation. Cranial nerves II-XII grossly intact. Motor strength 5/5 in all extremities. Sensory grossly intact. Cerebellar exam normal. Normal gait. Vital Signs: 16:16 BP 189 / 66; Pulse 80; Resp 22; Temp 98.3(O); Pulse Ox 100% on R/A; Weight 66.68 kg; em Height 5 ft. 3 in. (160.02 cm); Pain 0/10; 17:09 BP 188 / 68; Pulse 78; Resp 19; Pulse Ox 100% on R/A; tw2 17:58 BP 203 / 50; Pulse 82; Resp 20; Pulse Ox 100% on R/A; tw2 18:07 BP 188 / 62; Pulse 80; Resp 20; Pulse Ox 100% on R/A; tw2 18:57 BP 168 / 57; Pulse 72; Resp 17; Pulse Ox 100% on R/A; tw2 20:30 BP 155 / 53; Pulse 86; Resp 20; Pulse Ox 98% on R/A; jb4 16:16 Body Mass Index 26.04 (66.68 kg, 160.02 cm) em MDM: 16:15 Patient medically screened. tw4 20:29 Differential diagnosis: Anemia Anxiety Reaction. Antibiotic administration: Not tw4 indicated. Data reviewed: vital signs, nurses notes. Data reviewed: lab test result(s), cardiac enzymes, troponin i, CBC, white blood cell count, hemoglobin, hematocrit, platelets, electrolytes, sodium, potassium, chloride, serum bicarbonate, BUN, creatinine, serum glucose, hepatic panel, EKG. Data interpreted: Pulse oximetry: Interpretation: normal. Test interpretation: by ED physician or midlevel provider: ECG, plain radiologic studies. Counseling: I had a detailed discussion with the patient and/or guardian regarding: the historical points, exam findings, and any diagnostic results supporting the discharge/admit diagnosis, lab results, radiology results. Special discussion: Based on the patient's history, exam, and Dx evaluation, there is no indication for emergent intervention or inpatient Tx. It is understood by the patient/guardian that if the Sx's persist or worsen they need to return immediately for re-evaluation. I discussed with the patient/guardian in detail that at this point there is no indication for admission to the hospital. It is understood, however, that if the symptoms persist or worsen the patient needs to return immediately for re-evaluation. ED course: Pt's pain is atypical worse with coughing and movement. Dr Zee sent the patient in for evaluation and stated that he felt her pain was atypical. Pt has had two set of negative enzyme with a LBBB ekg. 08/10 16:16 Order name: Basic Metabolic Panel; Complete Time: 18:09 08/10 18:09 Interpretation: Normal except: NA 146; CL 117; BUN 28; GFR 50. 08/10 16:16 Order name: CBC with Diff; Complete Time: 18:09 08/10 18:09 Interpretation: Normal except: RBC 3.73; HGB 10.7; HCT 33.2. 08/10 16:16 Order name: LFT's; Complete Time: 18:09 08/10 18:10 Interpretation: Normal except: ALK 164; A/G 1.0. 08/10 16:16 Order name: Magnesium; Complete Time: 18:09 08/10 18:10 Interpretation: Within normal limits: MG 2.3. 08/10 16:16 Order name: NT PRO-BNP; Complete Time: 18:09 08/10 18:10 Interpretation: Normal except: NT PRO-BNP 66084. 08/10 16:16 Order name: PT-INR; Complete Time: 18:10 08/10 18:10 Interpretation: Within normal limits: PT 13.4. 08/10 16:16 Order name: Troponin (emerg Dept Use Only); Complete Time: 18:09 08/10 18:10 Interpretation: Within normal limits: TROPED 0.03. 08/10 16:16 Order name: XRAY Chest (1 view); Complete Time: 18:09 08/10 16:16 Order name: EKG; Complete Time: 16:17 08/10 16:16 Order name: Cardiac monitoring; Complete Time: 17:08 08/10 16:16 Order name: EKG - Nurse/Tech; Complete Time: 17:08 08/10 19:15 Order name: Troponin (emerg Dept Use Only) 08/10 16:16 Order name: IV Saline Lock; Complete Time: 17:08 08/10 16:16 Order name: Labs collected and sent; Complete Time: 17:08 08/10 16:16 Order name: O2 Per Protocol; Complete Time: 17:08/10 16:16 Order name: O2 Sat Monitoring; Complete Time: 17:08 tw4 EC:25 Rate is 82 beats/min. Rhythm is regular, Normal Sinus Rhythm with PACs, Left bundle tw4 branch block. QRS [place] is Normal. [place] interval is normal. QRS interval is normal. QT interval is normal. No Q waves. T waves are Inverted in leads V4, V5, V6. No ST changes noted. Clinical impression: Abnormal EKG without significant change. Interpreted by me. Reviewed by me. Administered Medications: 17:43 Drug: cloNIDine 0.1 mg Route: PO; tw2 18:56 Follow up: Response: No adverse reaction; Blood pressure is lowered tw2 19:15 Drug: Albuterol 1.25 mg Route: Inhalation; jb4 19:45 Follow up: Response: No adverse reaction jb4 Disposition: 08/10/19 20:34 Discharged to Home. Impression: Other chest pain, Chest pain, unspecified, Acute bronchospasm. - Condition is Stable. - Discharge Instructions: Bronchospasm, Adult, Nonspecific Chest Pain, Pain Without a Known Cause. - Prescriptions for Tessalon Perles 100 mg Oral Capsule - take 1 capsule by ORAL route every 8 hours As needed; 15 capsule. Medrol (Jf) 4 mg Oral Tablets, Dose Pack - take 1 tablet by ORAL route as directed - follow package instructions; 1 packet. Albuterol Sulfate 90 mcg/actuation - inhale 1-2 puff by INHALATION route every 4-6 hours; 1 Inhaler. - Medication Reconciliation Form, Thank You Letter, Antibiotic Education, Prescription Opioid Use form. - Follow up: Private Physician; When: Upon discharge from the Emergency Department; Reason: Recheck today's complaints, Continuance of care. - Problem is new. - Symptoms have improved. Signatures: Dispatcher [employer] Jake Todd RN RN Kat Johnson RN RN tw2 Carter Tavera RN RN jb4 Rogelio Mishra MD MD tw4 Corrections: (The following items were deleted from the chart) 20:54 20:34 08/10/2019 20:34 Discharged to Home. Impression: Other chest pain; Chest pain, jb4 unspecified; Acute bronchospasm. Condition is Stable. Forms are Medication Reconciliation Form, Thank You Letter, Antibiotic Education, Prescription Opioid Use. Follow up: Private Physician; When: Upon discharge from the Emergency Department; Reason: Recheck today's complaints, Continuance of care. Problem is new. Symptoms have improved. tw4
--- NOTE | 2019-08-10 20:36 | ER ---
Nurse's Notes [facility] Name: Nishant Finney Age: 84 yrs Sex: Female : 1935 Arrival Date: 08/10/2019 Time: 16:13 Bed 15 Private MD: Diagnosis: Other chest pain;Chest pain, unspecified;Acute bronchospasm Presentation: 08/10 16:13 Presenting complaint: Patient states: was sent over from Dr. Zee office for bundle em branch block on EKG, pt reports left sided chest pressure and shortness of breath for about a week, denies pain. Transition of care: patient was not received from another setting of care. Onset of symptoms was August 10, 2019. Risk Assessment: Do you want to hurt yourself or someone else? Patient reports no desire to harm self or others. Initial Sepsis Screen: Does the patient meet any 2 criteria? RR > 20 per min. No. Patient's initial sepsis screen is negative. Does the patient have a suspected source of infection? No. Patient's initial sepsis screen is negative. Care prior to arrival: None. 16:13 Method Of Arrival: Wheelchair em 16:40 Acuity: JONO 3 iw Historical: - Allergies: 16:16 Codeine; em - Home Meds: 18:32 Advair Diskus inhalation Inhl [Active]; amitriptyline 75 mg Oral tab once daily tw2 [Active]; amlodipine 10 mg tab 1 tab once daily [Active]; aspirin 81 mg Oral TbEC 1 tab once daily [Active]; atorvastatin 20 mg Oral tab 1 tab once daily [Active]; clopidogrel 75 mg Oral tab 1 tab once daily [Active]; Dulera 200-5 mcg/actuation inhalation HFAA [Active]; metoprolol succinate 100 mg Oral Tb24 twice a day [Active]; sulfasalazine 500 mg Oral tab 3 tab twice a day [Active]; valsartan-hydrochlorothiazide 320-25 mg Oral tab once daily [Active]; - PMHx: 16:16 Diabetes - NIDDM; Hypertension; Rheumatoid Arthritis; Hyperlipidemia; em - PSHx: 16:16 R knee replacement x2; Appendectomy; Hysterectomy; Hip replacement R; em - Immunization history:: Adult Immunizations not up to date. - Social history:: Smoking status: Patient/guardian denies using tobacco. - Ebola Screening: : Patient negative for fever greater than or equal to 101.5 degrees Fahrenheit, and additional compatible Ebola Virus Disease symptoms Patient denies exposure to infectious person Patient denies travel to an Ebola-affected area in the 21 days before illness onset No symptoms or risks identified at this time. Screenin:42 Abuse screen: Denies threats or abuse. Nutritional screening: No deficits noted. em Tuberculosis screening: No symptoms or risk factors identified. Fall Risk None identified. Assessment: 16:15 General: Appears in no apparent distress. well groomed, Behavior is calm, cooperative, tw2 appropriate for age. Neuro: Level of Consciousness is awake, alert, obeys commands, Oriented to person, place, time, situation. Cardiovascular: Reports shortness of breath, chest pressure Heart tones S1 S2 Patient's skin is warm and dry. Respiratory: Airway is patent Respiratory effort is even, unlabored, Respiratory pattern is regular, symmetrical, Breath sounds are clear bilaterally. GI: No signs and/or symptoms were reported involving the gastrointestinal system. Abdomen is flat, Bowel sounds present X 4 quads. : No signs and/or symptoms were reported regarding the genitourinary system. EENT: No signs and/or symptoms were reported regarding the EENT system. Derm: No signs and/or symptoms reported regarding the dermatologic system. Musculoskeletal: Range of motion: intact in all extremities. 16:55 Pain: Pain does not radiate. Pain began 2-3 days ago. tw2 17:09 Reassessment: Patient appears in no apparent distress at this time. No changes from tw2 previously documented assessment. Patient and/or family updated on plan of care and expected duration. Pain level reassessed. Patient is alert, oriented x 3, equal unlabored respirations, skin warm/dry/pink. 17:59 Reassessment: Patient appears in no apparent distress at this time. No changes from tw2 previously documented assessment. Patient and/or family updated on plan of care and expected duration. Pain level reassessed. Patient is alert, oriented x 3, equal unlabored respirations, skin warm/dry/pink. 18:57 Reassessment: Patient appears in no apparent distress at this time. No changes from tw2 previously documented assessment. Patient and/or family updated on plan of care and expected duration. Pain level reassessed. Patient is alert, oriented x 3, equal unlabored respirations, skin warm/dry/pink. 19:10 Reassessment: Patient appears in no apparent distress at this time. Patient and/or jb4 family updated on plan of care and expected duration. Pain level reassessed. Patient is alert, oriented x 3, equal unlabored respirations, skin warm/dry/pink. Respiratory: Airway is patent Respiratory effort is even, unlabored, Respiratory pattern is regular, symmetrical, Breath sounds are clear bilaterally. 20:30 Reassessment: Patient appears in no apparent distress at this time. Patient and/or jb4 family updated on plan of care and expected duration. Pain level reassessed. Patient is alert, oriented x 3, equal unlabored respirations, skin warm/dry/pink. PT ambulated to Restroom and back to bed with crutches and steady gait. 20:51 Reassessment: Patient appears in no apparent distress at this time. Patient and/or jb4 family updated on plan of care and expected duration. Pain level reassessed. Patient is alert, oriented x 3, equal unlabored respirations, skin warm/dry/pink. PT and family verbalized understanding of d/c and follow up instructions. Vital Signs: 16:16 BP 189 / 66; Pulse 80; Resp 22; Temp 98.3(O); Pulse Ox 100% on R/A; Weight 66.68 kg; em Height 5 ft. 3 in. (160.02 cm); Pain 0/10; 17:09 BP 188 / 68; Pulse 78; Resp 19; Pulse Ox 100% on R/A; tw2 17:58 BP 203 / 50; Pulse 82; Resp 20; Pulse Ox 100% on R/A; tw2 18:07 BP 188 / 62; Pulse 80; Resp 20; Pulse Ox 100% on R/A; tw2 18:57 BP 168 / 57; Pulse 72; Resp 17; Pulse Ox 100% on R/A; tw2 20:30 BP 155 / 53; Pulse 86; Resp 20; Pulse Ox 98% on R/A; jb4 16:16 Body Mass Index 26.04 (66.68 kg, 160.02 cm) em ED Course: 16:13 Patient arrived in ED. em 16:15 Rogelio Mishra MD is Attending Physician. tw4 16:16 Arm band placed on. em 16:16 Patient has correct armband on for positive identification. Placed in gown. Bed in low em position. Call light in reach. Adult w/ patient. bus monitor on. Pulse ox on. NIBP on. 16:20 EKG done, by ED staff, reviewed by Rogelio Mishra MD. 3 16:35 Inserted saline lock: 22 gauge in right antecubital area, using aseptic technique. em Blood collected. Patient maintains SpO2 saturation greater than 95% on room air. 16:35 Initial lab(s) drawn, by me, sent to lab. em 16:40 Triage completed. iw 16:55 Kat Lerner, RN is Primary Nurse. tw2 16:59 XRAY Chest (1 view) In Process Unspecified. EDMS 20:13 Diet: Patient given snack. Patient given water. Tolerated well. jb5 20:53 No provider procedures requiring assistance completed. IV discontinued, intact, jb4 bleeding controlled, No redness/swelling at site. Pressure dressing applied. Administered Medications: 17:43 Drug: cloNIDine 0.1 mg Route: PO; tw2 18:56 Follow up: Response: No adverse reaction; Blood pressure is lowered tw2 19:15 Drug: Albuterol 1.25 mg Route: Inhalation; jb4 19:45 Follow up: Response: No adverse reaction jb4 Outcome: 20:34 Discharge ordered by . tw4 20:53 Discharged to home via wheelchair, with family. jb4 20:53 Condition: stable 20:53 Discharge instructions given to patient, family, Instructed on discharge instructions, follow up and referral plans. medication usage, Demonstrated understanding of instructions, follow-up care, medications, Prescriptions given X 3. 20:54 Patient left the ED. jb4 Signatures: Dispatcher [employer] EDKY Jake Gamboa, RN RN em Cyndi Dinh, RN LISA Kat Lerner RN RN tw2 Carter Tavera RN RN jb4 Marie Quezada jb5 [facility] Rogelio Mishra MD MD tw4
[2019-08-10 21:17] VITALS: TEMP 98.3
[2019-08-10 21:24] VITALS: BP 155/53; O2SAT 98
--- NOTE | 2019-08-11 07:22 | EKG ---
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
== END 2019-08-10 20:54 | disposition home or self-care (01) ==
LOC: ER 16:06
DX: R07.9 Chest pain, unspecified (principal); J98.01 Acute bronchospasm; E11.9 Type 2 diabetes mellitus without complications; I10 Essential (primary) hypertension; E78.5 Hyperlipidemia, unspecified; M06.9 Rheumatoid arthritis, unspecified; Z88.6 Allergy status to analgesic agent
CPT/HCPCS: 36415; 71045; 80048; 80076; 83735; 83880; 84484; 85025; 85610; 93005; 99285

== ENCOUNTER 2019-09-14 20:02 | Emergency (ER) | payer OTHER ==
[2019-09-14 21:25] LABS: Absolute Lymphocytes (CBC) 1.3 K/uL (0.7-4.9); Basophils % 0.3 % (0-1.3); Hematocrit 30.9 % (36.0-45.0); Lymphocytes % 24.1 % (15.3-44.8); MPV 8.3 fL (7.6-11.3)
[2019-09-14 21:26] LABS: Protime INR 1.11
[2019-09-14 21:45] LABS: ALT/SGPT 24 U/L (12-78); AST/SGOT 17 U/L (15-37); Albumin 3.4 g/dL (3.4-5.0); Alkaline Phosphatase 185 U/L (45-117); BUN Blood Urea Nitrogen 32 mg/dL (7-18); Bicarbonate 24 mmol/L (21-32); Bilirubin Direct < 0.1 mg/dL (0-0.2); Bilirubin Total 0.2 mg/dL (0.2-1.0); Glucose Level 96 mg/dL (74-106); Magnesium 2.3 mg/dL (1.8-2.4); NT PRO-BNP 1803 pg/mL (<450); Potassium 4.2 mmol/L (3.5-5.1); Sodium Level 142 mmol/L (136-145); Troponin (Emerg Dept Use Only) < 0.02 ng/mL (0.0-0.045)
--- NOTE | 2019-09-15 00:18 | ER ---
Nurse's Notes [facility] Name: Nishant Finney Age: 84 yrs Sex: Female : 1935 Arrival Date: 09/14/2019 Time: 20:06 Bed 15 Private MD: Diagnosis: Essential (primary) hypertension;Edema, unspecified-bilateral pedal edema Presentation: 09/14 20:15 Presenting complaint: Patient states: High blood pressure and swelling on both legs up ca1 to the knees. I think my breasts are swollen too. This has been going on for 2 weeks now. SOB on exertion reported. Transition of care: patient was not received from another setting of care. Onset of symptoms was September 14, 2019. Risk Assessment: Do you want to hurt yourself or someone else? Patient reports no desire to harm self or others. Initial Sepsis Screen: Does the patient meet any 2 criteria? No. Patient's initial sepsis screen is negative. Does the patient have a suspected source of infection? No. Patient's initial sepsis screen is negative. Care prior to arrival: None. 20:15 Method Of Arrival: Wheelchair ca1 20:15 Acuity: JONO 3 ca1 Historical: - Allergies: 20:25 Codeine; ca1 - Home Meds: 20:25 metoprolol succinate 100 mg Oral Tb24 twice a day [Active]; sucralfate 1 gram Oral tab ca1 1 tab 2 times per day [Active]; atorvastatin 20 mg Oral tab 1 tab once daily [Active]; clopidogrel 75 mg Oral tab 1 tab once daily [Active]; hydrochlorothiazide 25 mg Oral tab 1 tab once daily [Active]; doxazosin 4 mg oral tab 1 tab once daily [Active]; irbesartan 300 mg oral tab 1 tab once daily [Active]; amlodipine 10 mg tab 1 tab once daily [Active]; Enbrel SureClick 50 mg/mL (0.98 mL) subcutaneous pnij 1 mL once wkly [Active]; Albuterol Inhl [Active]; - PMHx: 20:25 Diabetes - NIDDM; Hyperlipidemia; Hypertension; Rheumatoid Arthritis; ca1 - PSHx: 20:25 R knee replacement x2; Hip replacement R; Appendectomy; Hysterectomy; ca1 - Immunization history:: Adult Immunizations not up to date, Pneumococcal vaccine is not up to date, Flu vaccine is not up to date. - Coronavirus screen:: The patient has NOT traveled to [place] in the past 14 days. The patient has NOT had contact with known/suspected case of Coronavirus?. - Social history:: Smoking status: Patient denies any tobacco usage or history of. - Ebola Screening: : Patient negative for fever greater than or equal to 101.5 degrees Fahrenheit, and additional compatible Ebola Virus Disease symptoms Patient denies exposure to infectious person Patient denies travel to an Ebola-affected area in the 21 days before illness onset No symptoms or risks identified at this time. Screenin:50 Abuse screen: Denies threats or abuse. Nutritional screening: No deficits noted. jb4 Tuberculosis screening: No symptoms or risk factors identified. Fall Risk None identified. Assessment: 20:50 General: Appears in no apparent distress. comfortable, Behavior is calm, cooperative, jb4 appropriate for age. Pain: Denies pain. Neuro: Level of Consciousness is awake, alert, obeys commands, Oriented to person, place, time, situation. Cardiovascular: Patient's skin is warm and dry. Respiratory: Airway is patent Respiratory effort is even, unlabored, Respiratory pattern is regular, symmetrical. GI: No signs and/or symptoms were reported involving the gastrointestinal system. : No signs and/or symptoms were reported regarding the genitourinary system. EENT: No signs and/or symptoms were reported regarding the EENT system. Derm: Skin is intact, Skin is dry, Skin is normal, Skin temperature is warm. Musculoskeletal: Circulation, motion, and sensation intact. Range of motion: intact in all extremities. 22:00 Reassessment: Patient appears in no apparent distress at this time. Patient and/or jb4 family updated on plan of care and expected duration. Pain level reassessed. Patient is alert, oriented x 3, equal unlabored respirations, skin warm/dry/pink. 23:21 Reassessment: Patient appears in no apparent distress at this time. Patient and/or jb4 family updated on plan of care and expected duration. Pain level reassessed. Patient is alert, oriented x 3, equal unlabored respirations, skin warm/dry/pink. 09/15 00:58 Reassessment: Patient appears in no apparent distress at this time. Patient and/or jb4 family updated on plan of care and expected duration. Pain level reassessed. Patient is alert, oriented x 3, equal unlabored respirations, skin warm/dry/pink. Vital Signs: 09/14 20:25 BP 145 / 74; Pulse 74; Resp 16 S; Temp 98.6(O); Pulse Ox 99% on R/A; Weight 64.86 kg ca1 (R); Height 5 ft. 3 in. (160.02 cm) (R); 21:00 BP 182 / 62; Pulse 80; Resp 16; Pulse Ox 100% on R/A; jb4 23:00 BP 168 / 60; Pulse 72; Resp 16; Pulse Ox 97% on R/A; jb4 23:30 BP 165 / 46; Pulse 72; Resp 16; Pulse Ox 99% on R/A; jb4 20:25 Body Mass Index 25.33 (64.86 kg, 160.02 cm) ca1 ED Course: 20:06 Patient arrived in ED. cf2 20:19 Triage completed. ca1 20:25 Arm band placed on right wrist. ca1 20:49 Rodrigo Craig NP is PHCP. pm1 20:49 Rogelio Mishra MD is Attending Physician. pm1 20:50 Patient has correct armband on for positive identification. Bed in low position. Call jb4 light in reach. Side rails up X 1. Pulse ox on. NIBP on. 21:00 Carter Tavera, LISA is Primary Nurse. jb4 02 00:59 No provider procedures requiring assistance completed. IV discontinued, intact, jb4 bleeding controlled, No redness/swelling at site. Pressure dressing applied. Administered Medications: No medications were administered Outcome: 00:15 Discharge ordered by MD. pm1 00:59 Discharged to home via wheelchair, with family. jb4 00:59 Condition: stable 00:59 Discharge instructions given to patient, family, Instructed on discharge instructions, follow up and referral plans. Demonstrated understanding of instructions, follow-up care. 01:00 Patient left the ED. jb4 Signatures: Rordigo Craig NP DIRECTOR OF EXHIBIT DEVELOPMENT pm1 Carter Tavera RN RN jb4 Lala Bains RN RN ca1 Nathan Lomeli cf2
--- NOTE | 2019-09-15 00:19 | EDPHYS ---
Physician Documentation [facility] Name: Nishant Finney Age: 84 yrs Sex: Female : 1935 Arrival Date: 09/14/2019 Time: 20:06 Bed 15 Private MD: ED Physician Rogelio Mishra HPI: 09/14 21:04 This 84 yrs old Black Female presents to ER via Wheelchair with complaints of High pm1 Blood Pressure, Swelling of Lower Extremity, Knee Pain. 21:04 The patient has elevated blood pressure and discovered this at home, with a home pm1 device. Onset: The symptoms/episode began/occurred 2 week(s) ago. Associated signs and symptoms: Pertinent positives: occasional shortness of breath with exertion, Pertinent negatives: chest pain, headache, nausea, vomiting. Patient presents to the ER today with complaints of elevated blood pressure in the 160's systolic, swelling of bilateral lower extremities and left knee pain. Patient's lower extremity swelling is improved with elevation of her extremities and she wakes up in the morning with the swelling improved. Historical: - Allergies: 20:25 Codeine; ca1 - Home Meds: 20:25 metoprolol succinate 100 mg Oral Tb24 twice a day [Active]; sucralfate 1 gram Oral tab ca1 1 tab 2 times per day [Active]; atorvastatin 20 mg Oral tab 1 tab once daily [Active]; clopidogrel 75 mg Oral tab 1 tab once daily [Active]; hydrochlorothiazide 25 mg Oral tab 1 tab once daily [Active]; doxazosin 4 mg oral tab 1 tab once daily [Active]; irbesartan 300 mg oral tab 1 tab once daily [Active]; amlodipine 10 mg tab 1 tab once daily [Active]; Enbrel SureClick 50 mg/mL (0.98 mL) subcutaneous pnij 1 mL once wkly [Active]; Albuterol Inhl [Active]; - PMHx: 20:25 Diabetes - NIDDM; Hyperlipidemia; Hypertension; Rheumatoid Arthritis; ca1 - PSHx: 20:25 R knee replacement x2; Hip replacement R; Appendectomy; Hysterectomy; ca1 - Immunization history:: Adult Immunizations not up to date, Pneumococcal vaccine is not up to date, Flu vaccine is not up to date. - Coronavirus screen:: The patient has NOT traveled to [facility] in the past 14 days. The patient has NOT had contact with known/suspected case of Coronavirus?. - Social history:: Smoking status: Patient denies any tobacco usage or history of. - Ebola Screening: : Patient negative for fever greater than or equal to 101.5 degrees Fahrenheit, and additional compatible Ebola Virus Disease symptoms Patient denies exposure to infectious person Patient denies travel to an Ebola-affected area in the 21 days before illness onset No symptoms or risks identified at this time. ROS: 21:04 Constitutional: Negative for fever, chills, and weight loss, Eyes: Negative for injury, pm1 pain, redness, and discharge, ENT: Negative for injury, pain, and discharge, Neck: Negative for injury, pain, and swelling, Cardiovascular: Negative for chest pain, palpitations. Positive for edema MS/Extremity: Negative for injury and deformity, Skin: Negative for injury, rash, and discoloration, Neuro: Negative for headache, weakness, numbness, tingling, and seizure. 21:04 Abdomen/GI: Negative for abdominal pain, nausea, vomiting, diarrhea, and constipation, Back: Negative for injury and pain. 21:04 Respiratory: Positive for occasional shortness of breath with exertion, Negative for cough, sputum production, wheezing. Exam: 21:04 Constitutional: This is a well developed, well nourished patient who is awake, alert, pm1 and in no acute distress. Head/Face: Normocephalic, atraumatic. Neck: Trachea midline, no thyromegaly or masses palpated, and no cervical lymphadenopathy. Supple, full range of motion without nuchal rigidity, or vertebral point tenderness. No Meningismus. Chest/axilla: Normal chest wall appearance and motion. Nontender with no deformity. No lesions are appreciated. 21:04 Respiratory: Lungs have equal breath sounds bilaterally, clear to auscultation and percussion. No rales, rhonchi or wheezes noted. No increased work of breathing, no retractions or nasal flaring. Abdomen/GI: Soft, non-tender, with normal bowel sounds. No distension or tympany. No guarding or rebound. No evidence of tenderness throughout. Back: No spinal tenderness. No costovertebral tenderness. Full range of motion. Skin: Warm, dry with normal turgor. Normal color with no rashes, no lesions, and no evidence of cellulitis. MS/ Extremity: Pulses equal, no cyanosis. Neurovascular intact. Full, normal range of motion. 21:04 Cardiovascular: Rate: normal, Rhythm: regular, Pulses: no pulse deficits are appreciated, Edema: pedal edema, that is mild. 21:04 Neuro: Orientation: is normal, Motor: is normal, moves all fours. 22:26 ECG was reviewed by the Attending Physician. pm1 Vital Signs: 20:25 BP 145 / 74; Pulse 74; Resp 16 S; Temp 98.6(O); Pulse Ox 99% on R/A; Weight 64.86 kg ca1 (R); Height 5 ft. 3 in. (160.02 cm) (R); 21:00 BP 182 / 62; Pulse 80; Resp 16; Pulse Ox 100% on R/A; jb4 23:00 BP 168 / 60; Pulse 72; Resp 16; Pulse Ox 97% on R/A; jb4 23:30 BP 165 / 46; Pulse 72; Resp 16; Pulse Ox 99% on R/A; jb4 20:25 Body Mass Index 25.33 (64.86 kg, 160.02 cm) ca1 MDM: 20:55 Patient medically screened. pm1 09/15 00:10 Data reviewed: vital signs. Data interpreted: Pulse oximetry: on room air is 97 %. pm1 Interpretation: normal. 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 09/14 21:04 Order name: Basic Metabolic Panel pm1 09/14 21:04 Order name: CBC with Diff pm1 09/14 21:04 Order name: LFT's pm1 09/14 21:04 Order name: Magnesium pm1 09/14 21:04 Order name: NT PRO-BNP pm1 09/14 21:04 Order name: PT-INR pm1 09/14 21:04 Order name: Troponin (emerg Dept Use Only) pm1 09/14 21:30 Order name: CBC with Automated Diff; Complete Time: 22:07 EDMS 09/14 21:30 Order name: Protime (+INR); Complete Time: 22: EDMS 09/14 21:45 Order name: Basic Metabolic Panel; Complete Time: 22: EDOK 09/14 21:46 Order name: Liver (Hepatic) Function; Complete Time: 22:07 EDMS 09/14 21:46 Order name: Troponin (Emerg Dept Use Only); Complete Time: 22: EDOK 09/14 21:46 Order name: NT PRO-BNP; Complete Time: 22: EDMS 09/14 21:46 Order name: Magnesium; Complete Time: 22: EDMS 09/14 21:04 Order name: XRAY Chest (1 view) pm1 09/14 21:04 Order name: EKG; Complete Time: 21:05 pm1 09/14 21:04 Order name: Cardiac monitoring; Complete Time: 21:17 pm1 09/14 21:04 Order name: EKG - Nurse/Tech; Complete Time: 22:11 pm1 09/14 21:04 Order name: IV Saline Lock; Complete Time: 21:18 pm1 09/14 21:04 Order name: Labs collected and sent; Complete Time: 21:18 pm1 09/14 21:04 Order name: O2 Per Protocol; Complete Time: 21:18 pm1 09/14 21:04 Order name: O2 Sat Monitoring; Complete Time: 21:18 pm1 09/14 21:04 Order name: Extrem Venous W Compression [place] US pm1 EC/11 22:26 Rate is 72 beats/min. Rhythm is regular, Sinus Rhythm with Left bundle branch block. pm1 Clinical impression: Left bundle branch block. No change from previous ECG on August 10, 2019. Administered Medications: No medications were administered Disposition: 09/15 06:14 Co-signature as Attending Physician, Rogelio Mishra MD I agree with the assessment and tw4 plan of care. Disposition: 09/15/19 00:15 Discharged to Home. Impression: Edema, unspecified - bilateral pedal edema, Essential (primary) hypertension. - Condition is Stable. - Discharge Instructions: Edema, Hypertension, How to Take Your Blood Pressure, Gdoc-ni-Rjep, DASH Eating Plan, Managing Your Hypertension. - Medication Reconciliation Form, Thank You Letter, Antibiotic Education, Prescription Opioid Use form. - Follow up: Emergency Department; When: As needed; Reason: Worsening of condition. Follow up: Private Physician; When: 2 - 3 days; Reason: Recheck today's complaints, Continuance of care, Re-evaluation by your physician. - Problem is new. - Symptoms have improved. Signatures: Dispatcher [employer] EDMS Rodrigo Craig DUST MOP MAKER DUST MOP MAKER pm1 Carter Tavera RN RN jb4 Rogelio Mishra MD MD tw4 Lala Bains RN RN ca1 Corrections: (The following items were deleted from the chart) 01:00 00:15 09/15/2019 00:15 Discharged to Home. Impression: Edema, unspecified - bilateral jb4 pedal edemaEssential (primary) hypertension. Condition is Stable. Forms are Medication Reconciliation Form, Thank You Letter, Antibiotic Education, Prescription Opioid Use. Follow up: Emergency Department; When: As needed; Reason: Worsening of condition. Follow up: Private Physician; When: 2 - 3 days; Reason: Recheck today's complaints, Continuance of care, Re-evaluation by your physician. Problem is new. Symptoms have improved. pm1
--- NOTE | 2019-09-15 06:55 | RAD REPORT ---
EXAM DESCRIPTION: US - Extrem Venous W Compress [place] - 09/14/2019 9:34 pm CLINICAL HISTORY: Bilateral leg pain and swelling COMPARISON: None. TECHNIQUE: Real-time sonographic evaluation of the bilateral lower extremity common femoral, superfi cial femoral, popliteal and posterior tibial veins was performed. FINDINGS: Normal compressibility, flow augmentation, phasic flow and spontaneous flow are identified in the left and right lower extremity common femoral, superficial femoral, popliteal and posterior t ibial veins. No intraluminal filling defects seen. Preliminary findings provided at the time of the study. IMPRESSION: No DVT in either lower extremity.
--- NOTE | 2019-09-15 08:53 | EKG ---
Test Date: 2019-09-14 Test Time: 22:08:50 Day Care Aide: ESPERANZA MEASUREMENT RESULTS: Intervals: Rate: 72 KS: 146 QRSD: 144 QT: 422 QTc: 462 [place]: P: 73 KS: 146 QRS: -31 T: 104 INTERPRETIVE STATEMENTS: Sinus rhythm with premature atrial complexes Left axis deviation Left bundle branch block Abnormal ECG Compared to ECG 08/10/2019 16:15:46 Left-axis deviation now present Electronically Signed On 09-15-19 08:52:27 ASSOCIATE PROFESSOR OF VIOLIN by Jonathan Zee
--- NOTE | 2019-09-15 08:56 | RAD REPORT ---
EXAM DESCRIPTION: RAD - Chest Single View - 09/14/2019 9:30 pm CLINICAL HISTORY: SOB COMPARISON: Chest Single View dated 08/10/2019; Chest Single View dated 06/17/2018 TECHNIQUE: AP portable chest image was obtained 09/14/2019 9:30 pm . FINDINGS: Lung volumes are relatively low. Interstitial markings are mildly prominent but not substa ntially different. Cardiomegaly is present. Mild vascular engorgement is seen. Trachea is midline. No measurable pleural effusion and no pneumothorax. No acute bony abnormality seen. No acute aortic fin dings suspected. IMPRESSION: Cardiomegaly with mild vascular engorgement and mild prominence of the interstitial yanira ann. No focal consolidation or mass. Findings are not substantially different from August 10 imaging. A minimal component of failure or vo lume overload is suspected.
[2019-09-16 14:20] VITALS: TEMP 98.6
[2019-09-16 14:24] VITALS: BP 165/46; O2SAT 99
== END 2019-09-15 01:00 | disposition home or self-care (01) ==
LOC: ER 20:02
DX: I10 Essential (primary) hypertension (principal); E11.9 Type 2 diabetes mellitus without complications; E78.5 Hyperlipidemia, unspecified; Z88.5 Allergy status to narcotic agent
CPT/HCPCS: 36415; 71045; 80048; 80076; 83735; 83880; 84484; 85025; 85610; 93005; 93970; 99283

== ENCOUNTER 2019-10-16 10:51 | Emergency (ER) | payer OTHER ==
--- OUTSIDE RECORDS SUMMARY | 2019-10-16 10:53 | XMS REPORT | Summary of Care ---
:1935 Author Organization [facility] - Health Address [address] [place] [address] Care Team Providers Name Role Phone Chucky Olivares MD Primary Care Provider Encounter Details Date Type Department Care Team Description 09/23/2019 Orders Only [facility] Doctor Unassigned, [address] [facility] [place] [address] [address] [place] [address] Allergies No Known Allergiesdocumented as of this encounter (statuses as of 10/03/2019) Medications No known medicationsdocumented as of this encounter (statuses as of 10/03/2019) Active Problems Not on filedocumented as of this encounter (statuses as of 10/03/2019) Social History Tobacco Use Types Packs/Day Years Used Date Never Assessed Sex Assigned at Date Recorded Not on file Job Start Date Occupation Industry Not on file Not on file Not on file Travel History Travel Start Travel End No recent travel history available. documented as of this encounter Last Filed Vital Signs Not on filedocumented in this encounter Plan of Treatment Date Type Specialty Care Team Description 10/20/2019 Office Visit Orthopedic Surgery Rodger Chahal MD [address] [place] [address] Health Maintenance Due Date Last Done Comments DTaP,Tdap,and Td Vaccines (1 - Tdap) 1946 Zoster Recombinant Vaccine (SHINGRIX) (1 of 2) 1984 Medicare Wellness Visit 1999 Osteoporosis Screening 1999 PNEUMOCOCCAL VACCINES 65+ (1 of 2 - PCV13) 1999 INFLUENZA VACCINE (#1) 2019 documented as of this encounter Procedures Procedure Name Priority Date/Time Associated Diagnosis Comments REFERRAL- Routine 09/23/2019 12:01 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
--- OUTSIDE RECORDS SUMMARY | 2019-10-16 10:53 | XMS REPORT | Summary of Care ---
:1935 Author Organization [facility] Address [address] [place] [id number] Care Team Providers Name Role Phone Chucky Olivares MD Primary Care Provider Reason for Visit Reason Comments New Patient Knee Pain left knee pain and fluid in it (Routine) Status Reason Specialty Diagnoses / Referred By Referred To Procedures Contact Contact Pending Review ORT-ORTHOPAEDIC Diagnoses Knee pain new pt/ knee problems swelling up fluid iin it Rodger Chahal, SURGERY / Procedures CONSULT/REFERRAL ORTHOPAEDIC SURGERY NEW VISIT (FIRST TIME) MD Rodger Victoria MD Orthopedic [address] [place], [place] [address] [address] [place] Phone: [phone] Phone: Encounter Details Date Type Department Care Team Description 09/24/2019 Office Visit [facility] Rodger Chahal Primary osteoarthritis Orthopaedic Surgery- MD Julien of left knee (Primary [place] [address]) [address] [facility], [address] [place] [address] [place] [phone] Allergies No Known Allergiesdocumented as of this encounter (statuses as of 09/24/2019) Medications Medication Sig Dispensed Refills Start Date End Date Status albuterol 90 mcg/actuation 0 08/11/2019 Active inhaler amLODIPine 10 mg tablet 0 08/12/2019 Active doxazosin 4 mg tablet 0 09/20/2019 Active hydroCHLOROthiazide 25 mg 0 08/11/2019 Active tablet methylPREDNISolone 4 mg 0 08/11/2019 Active tablets sucralfate 1 gram tablet TK 1 T PO 0 07/22/2019 Active BID documented as of this encounter (statuses as of 09/24/2019) Active Problems Not on filedocumented as of this encounter (statuses as of 09/24/2019) Social History Tobacco Use Types Packs/Day Years Used Date Never Assessed Sex Assigned at Date Recorded Not on file Job Start Date Occupation Industry Not on file Not on file Not on file Travel History Travel Start Travel End No recent travel history available. 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 Knee Pain The incident occurred more than 1 week ago. The incident occurred at home. There was no injury mechanism. The pain is present in the left knee. The quality of the pain is described as aching, burning and stabbing. The pain is at a severity of 6/10. The pain is moderate. The pain has been worsening since onset. Associated symptoms include an inability to bear weight and a loss of motion. The symptoms are aggravated by movement and weight bearing. She has tried non-weight bearing, NSAIDs, immobilization and acetaminophen for the symptoms. The treatment provided mild relief. Allergies Nishant has No Known Allergies. Medications Outpatient Medications Prior to Visit Medication Sig Dispense Refill albuterol 90 mcg/actuation inhaler amLODIPine 10 mg tablet doxazosin 4 mg tablet hydroCHLOROthiazide 25 mg tablet methylPREDNISolone 4 mg tablets sucralfate 1 gram tablet TK 1 T PO BID No facility-administered medications prior to visit. Histories No past medical history on file. No past surgical history on file. Social History Socioeconomic History Marital status: Spouse name: Not on file Number of children: Not on file Years of education: Not on file Highest education level: Not on file Occupational History Not on file Social Needs Financial resource strain: Not on file Food insecurity: Worry: Not on file Inability: Not on file Transportation needs: Medical: Not on file Non-medical: Not on file Tobacco Use Smoking status: Not on file Substance and Sexual Activity Alcohol use: Not on file Drug use: Not on file Sexual activity: Not on file Lifestyle Physical activity: Days per week: Not on file Minutes per session: Not on file Stress: Not on file Relationships Social connections: Talks on phone: Not on file Gets together: Not on file Attends zoroastrianism service: Not on file Active member of club or organization: Not on file Attends meetings of clubs or organizations: Not on file Relationship status: Not on file Intimate partner violence: Fear of current or ex partner: Not on file Emotionally abused: Not on file Physically abused: Not on file Forced sexual activity: Not on file Other Topics Concern Not on file Social History Narrative Not on file No family history on file. Review of Systems Constitutional: Negative. HENT: Negative. Eyes: Negative. Respiratory: Negative. Breasts: Negative. Cardiovascular: Negative. Gastrointestinal: Negative. Genitourinary: Negative. Musculoskeletal: Negative. Skin: Negative. Neurological: Negative. Psychiatric/Behavioral: Negative. Endocrine: Endocrine negative Vital Signs BP 120/80 | Ht 63" (160 cm) Physical Exam Musculoskeletal: Left knee: She exhibits decreased range of motion and effusion. Tenderness found. Medial joint line tenderness noted. General: Well-developed well-nourished oriented to person place and time HEENT normocephalic atraumatic atraumatic pupils equal round reactive to light extraocular muscles intact Cervical thoracic and lumbar spine without focal deficit normal kyphosis and lordosis Chest clear to auscultation and percussion Cardiovascular regular rate and rhythm without gallop rub or murmur soft without organomegaly Normal bowel sounds Neurologic: Focal myotome or dermatomal deficits Vascular: Intact symmetrical bilateral upper and lower extremities Skin without stasis varicosities or breakdown Extremities without cyanosis clubbing or edema Lymphatics no peripheral lymphedema Psych normal mood and affect. Neurovascular function is intact. To include brisk capillary refill warm pink skin active motor function and sensory function intact. Nursing note and vitals reviewed. Assessment/Plan Diagnosis left knee djd Plan Patient's knee(s) is/are wearing out and will eventually need a total knee replacement but willtake preventative measures prior to discussing surgery. Will take this in a stepwise fashion first beginning with NSAIDs. Next would be a cortisone injection. A cortisone injection will only help with the inflammatory response. Cortisone injections will be given no less than 3 months in a 3 year time frame. Hymalecular weight hylaronic acid injection series would follow cortisone injections. If the response is well to the cortisone this is usually an indication of how one will respond to Hymalecularweight hylaronic injections. These injections are given once weekly to the affected knee for 3 weeks. This can give at least 6 months of relief in 3 out of 4 people. If these steps do not help the last option would be to have a total knee replacement. Will give cortisone injection today. Patient received an ultrasound guided injection of 1cc kenalog and 4cc lidocaine to the left knee. The knee was examined and the knee was marked with the needle In the middle of the lateral joint line just lateral to the patellar tendon the knee was then prepped 3 times with Betadine in a Bullseye fashion and thenonce with alcohol allowing it to soak at least 20 seconds. Ultrasound guidance was used to direct the needle posterior to the fat pad and an injection was administered of 1 cc Kenalog with 4 cc 1% lidocaine without epinephrine without resistance. The skin was cleansed with alcohol and then dried with a sterile 4 x 4 and a sterile Band -Aid was applied patient tolerated procedure without difficulty. documented in this encounter Plan of Treatment Date Type Specialty Care Team Description 10/20/2019 Office Visit Orthopedic Surgery Rodger Chahal MD [address] [place] [phone] Health Maintenance Due Date Last Done Comments DTaP,Tdap,and Td Vaccines (1 - Tdap) 1946 Zoster Recombinant Vaccine (SHINGRIX) (1 of 2) 1984 Medicare Wellness Visit 1999 Osteoporosis Screening 1999 PNEUMOCOCCAL VACCINES 65+ (1 of 2 - PCV13) 1999 INFLUENZA VACCINE (#1) 2019 documented as of this encounter Results Not on filedocumented in this encounter Visit Diagnoses Diagnosis Primary osteoarthritis of left knee - Primary Primary localized osteoarthrosis, lower leg documented in this encounter Insurance Payer Benefit Plan / Subscriber ID Effective Dates Phone Address Type Group [facility] ANNIE VALENCIA [id number] 2019-Prese Medicare Adv PLUS PLUS nt HMO CLASSIC/VALUE ([place]) [place] [address] documented as of this encounter
--- OUTSIDE RECORDS SUMMARY | 2019-10-16 10:53 | XMS REPORT | Summary of Care ---
:1935 Author Organization [facility] Address [address] [place] [address] Care Team Providers Name Role Phone Chucky [...] SURGERY NEW VISIT (FIRST TIME) MD Rodger Victroia MD Orthopedic [address] [place], [place] [address] [address] [place] Phone: [phone] Phone: Encounter Details Date Type Department Care Team Description 09/24/2019 Office Visit [facility] Rodger Chahal Primary osteoarthritis Orthopaedic Surgery- MD Julien of left knee (Primary [place] [address]) [address] [facility], [address] [place] [phone] Allergies No Known Allergiesdocumented [...] Comments Blood Pressure 120/80 09/24/2019 9:38 AM 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 ANNIE VALENCIA [id number] 2019-Prese Medicare Adv PLUS PLUS nt HMO CLASSIC/VALUE ([place]) [place] [address] documented as of this encounter
--- OUTSIDE RECORDS SUMMARY | 2019-10-16 10:53 | XMS REPORT ---
:1935 Author [facility] Address [address] [place] [address] Dr. Gastelum [address] [place] [address] Care Team Providers Name Role Phone Unavailable Unavailable Unavailable Problems This patient has no known problems. Allergies, Adverse Reactions, Alerts This patient has no known allergies or adverse reactions. Medications This patient has no known medications.
[2019-10-16 13:17] LABS: Absolute Lymphocytes (CBC) 1.2 K/uL (0.7-4.9); Basophils % 0.4 % (0-1.3); Hematocrit 32.8 % (36.0-45.0); Lymphocytes % 23.3 % (15.3-44.8); MPV 8.9 fL (7.6-11.3); RBC Red Blood Cell Count 3.79 M/uL (3.86-4.86)
[2019-10-16 13:34] LABS: Albumin 3.4 g/dL (3.4-5.0); Bilirubin Total 0.4 mg/dL (0.2-1.0); Potassium 4.2 mmol/L (3.5-5.1); Protein, Total 6.9 g/dL (6.4-8.2)
[2019-10-16] MEDS ORDERED: TETANUS & DIPHTHERIA TOX,ADULT 0.5 ML VIAL ONE (13:41)
--- NOTE | 2019-10-16 13:56 | RAD REPORT ---
EXAM DESCRIPTION: US - Extremity Venous Uni Ltd - 10/16/2019 1:49 pm CLINICAL HISTORY: SWELLING, right leg pain COMPARISON: None. TECHNIQUE: Real-time sonographic evaluation of the right lower extremity deep venous systems was per formed. FINDINGS: Normal compressibility, flow augmentation, phasic flow and spontaneous flow are identified in the right lower extremity common femoral, superficial femoral, popliteal and posterior tibial vei ns. No intraluminal filling defects seen. A 3 centimeter popliteal fossa cyst is present. IMPRESSION: No DVT in the right lower extremity. A 3 centimeter popliteal fossa cyst present without rupture findings.
--- NOTE | 2019-10-16 14:21 | ER ---
[facility] Name: Nishant Finney Age: 84 yrs Sex: Female : 1935 Arrival Date: 10/16/2019 Time: 10:53 Bed 25 Private MD: Chucky Hernandez R Diagnosis: Cellulitis of right lower limb Presentation: 10/15 11:50 Chief complaint: Patient states: dropped ham bone on right foot 2 weeks ago. Ham bone dm5 had a sharp point and left a small puncture gladys. Pt reports still having pain and believes she may have an infection. Pt is taking medication for RA. Pt reports pain and swelling to the top of right foot agitated by bearing weight. Coronavirus screen: The patient has NOT traveled to a country currently being monitored by the [facility] within the last 14 days. Proceed with normal triage procedures. The patient has NOT had contact with any known and/or suspected case of coronavirus. Proceed with normal triage procedures. Ebola Screen: Patient negative for fever greater than or equal to 101.5 degrees Fahrenheit, and additional compatible Ebola Virus Disease symptoms Patient denies exposure to infectious person. Patient denies travel to an Ebola-affected area in the 21 days before illness onset. No symptoms or risks identified at this time. Initial Sepsis Screen: Does the patient meet any 2 criteria? No. Patient's initial sepsis screen is negative. Does the patient have a suspected source of infection? No. Patient's initial sepsis screen is negative. Risk Assessment: Do you want to hurt yourself or someone else? Patient reports no desire to harm self or others. 11:50 Method Of Arrival: Ambulatory dm5 11:50 Acuity: JONO 3 dm5 Triage Assessment: 11:50 Pain: Aggravated by weight bearing. dm5 14:27 General: Appears in no apparent distress. Behavior is calm, cooperative. ls4 Historical: - Allergies: 10/16 07:48 Codeine; ss - PMHx: 07:48 Diabetes - NIDDM; Hyperlipidemia; Hypertension; Rheumatoid Arthritis; ss - Immunization history:: Adult Immunizations up to date. - Social history:: Smoking status: Patient denies any tobacco usage or history of. Screenin/14 14:00 Abuse screen: Denies threats or abuse. Denies injuries from another. ls4 14:00 Nutritional screening: No deficits noted. Tuberculosis screening: No symptoms or risk ls4 factors identified. Fall Risk None identified. Assessment: 12:30 General: Appears in no apparent distress. Behavior is calm, cooperative. General: ss Denies fever. Pain: Complains of pain in right leg Pain currently is 4 out of 10 on a pain scale. Quality of pain is described as tender, Pain began x 2 weeks Is continuous, Aggravated by increased activity, weight bearing. Neuro: Level of Consciousness is awake, alert, obeys commands, Oriented to person, place, time, situation. Cardiovascular: Capillary refill < 3 seconds is brisk in bilateral fingers Patient's skin is warm and dry. Respiratory: Airway is patent Respiratory effort is even, unlabored, Respiratory pattern is regular, symmetrical. GI: Patient currently denies diarrhea, nausea, vomiting. EENT: Oral mucosa is moist. Derm: Skin is intact, is healthy with good turgor, Skin is dry, Skin is pink, warm \T\ dry. normal. Musculoskeletal: Circulation, motion, and sensation intact. Range of motion: intact in all extremities. 13:00 Reassessment: Patient appears in no apparent distress at this time. Patient and/or ss family updated on plan of care and expected duration. Pain level reassessed. Patient is alert, oriented x 3, equal unlabored respirations, skin warm/dry/pink. son remains at bedside. 14:00 Reassessment: No changes from previously documented assessment. ss Vital Signs: 11:50 BP 175 / 59; Pulse 74; Resp 18; Temp 99(TE); Pulse Ox 100% on R/A; Weight 66.68 kg; dm5 Height 5 ft. 3 in. (160.02 cm) (R); Pain 0/10; 11:50 Body Mass Index 26.04 (66.68 kg, 160.02 cm) dm5 ED Course: 10:53 Patient arrived in ED. mr 10:54 Chucky Hernandez MD is Private Physician. mr 11:53 Triage completed. dm5 12:09 Parth Barkley PA is PHCP. [facility] 12:09 Reagan Sharpe MD is Attending Physician. [facility] 13:16 Jeanie Epps, LISA is Primary Nurse. ss 13:16 Inserted saline lock: 20 gauge in left antecubital area, using aseptic technique. Blood ss collected. 13:49 US Extremity Venous Unilateral Ltd In Process Unspecified. EDMS 13:50 Ultrasound completed. Patient tolerated well. sg3 14:00 No provider procedures requiring assistance completed. ls4 14:00 Patient has correct armband on for positive identification. Bed in low position. Call ls4 light in reach. Side rails up X 1. 14:19 Chucky Hernandez MD is Referral Physician. 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 Exp: ss 08/19/2021. Lot #: [id number]. } Route: IM; Site: left deltoid; 14:25 Follow up: Response: No adverse reaction ls4 Outcome: 14:20 Discharge ordered by . sarika 14:30 Discharged to home via wheelchair, with family. 14:30 Condition: good 14:30 Discharge instructions given to patient, family, Instructed on discharge instructions, follow up and referral plans. medication usage, Demonstrated understanding of instructions, follow-up care, medications, Prescriptions given X 1. 14:39 Patient left the ED. ls4 Signatures: Dispatcher [employer] EDMS Lisa Torres, RN RN dm5 Parth Barkley PA PA jmm Rivera, Mary mr Jeanie Epsp, Zamzam Day RN sg3 Catina Mendosa, RN RN ls4
--- NOTE | 2019-10-16 14:21 | EDPHYS ---
Physician Documentation [facility] Name: Nishant Finney Age: 84 yrs Sex: Female : 1935 Arrival Date: 10/16/2019 Time: 10:53 Bed 25 Private MD: Chucky Hernandez R ED Physician Reagan Sharpe HPI: 10/15 12:14 This 84 yrs old Black Female presents to ER via Ambulatory with complaints of Foot jmm Injury. 12:14 The patient presents with pain, that is acute, swelling. Onset: The symptoms/episode jmm began/occurred gradually, 1 week(s) ago. Modifying factors: The symptoms are alleviated by nothing. the symptoms are aggravated by nothing. This is an 84 year old female with a history of RA that presents to the ED with complaints of pain and swelling to the right foot beginning 1 week ago. Patients states injuring her right foot two weeks ago with a dropped ham bone. Patient applied triple abx ointment with normal healing. . Historical: - Allergies: 10/16 07:48 Codeine; ss - PMHx: 07:48 Diabetes - NIDDM; Hyperlipidemia; Hypertension; Rheumatoid Arthritis; ss - Immunization history:: Adult Immunizations up to date. - Social history:: Smoking status: Patient denies any tobacco usage or history of. ROS: 03 12:14 Constitutional: Negative for fever, chills, and weight loss, Cardiovascular: Negative jmm for chest pain, palpitations, and edema, Respiratory: Negative for shortness of breath, cough, wheezing, and pleuritic chest pain. MS/extremity: Positive for pain, swelling. Skin: Positive for swelling. All other systems are negative. Exam: 12:14 Constitutional: This is a well developed, well nourished patient who is awake, alert, jmm and in no acute distress. Head/Face: atraumatic. Eyes: EOMI, no conjunctival erythema appreciated ENT: Moist Mucus Membranes Neck: Trachea midline, Supple Chest/axilla: Normal chest wall appearance and motion. Cardiovascular: Regular rate and rhythm. No edema appreciated Respiratory: Normal respirations, no respiratory distress appreciated Abdomen/GI: Non distended, soft Back: Normal ROM 12:14 Skin: mild erythema and swelling to the right foot, TTP. 12:14 Neuro: Orientation: is normal, Mentation: is normal, Memory: is normal. 12:14 Psych: Behavior/mood is pleasant, cooperative. Vital Signs: 11:50 BP 175 / 59; Pulse 74; Resp 18; Temp 99(TE); Pulse Ox 100% on R/A; Weight 66.68 kg; dm5 Height 5 ft. 3 in. (160.02 cm) (R); Pain 0/10; 11:50 Body Mass Index 26.04 (66.68 kg, 160.02 cm) dm5 MDM: 12:14 Patient medically screened. [facility] 14:18 Data reviewed: vital signs, nurses notes. Counseling: I had a detailed discussion with [facility] the patient and/or guardian regarding: the historical points, exam findings, and any diagnostic results supporting the discharge/admit diagnosis, lab results, the need for outpatient follow up, to return to the emergency department if symptoms worsen or persist or if there are any questions or concerns that arise at home. ED course: Patient is alert and non toxic in appearance in the ED. Patient is advised to follow up with Dr. Hernandez for reevaluation. Patient is otherwise given strict return precautions. patient understood and agrees with the plan of care. . 10/15 12:25 Order name: CBC with Diff [facility] 10/15 12:25 Order name: CMP; Complete Time: 13:36 [facility] 10/15 12:25 Order name: US Extremity Venous Unilateral Ltd; Complete Time: 14:33 [facility] 10/15 12:25 Order name: Procalcitonin; Complete Time: 13:53 [facility] 10/15 12:25 Order name: Lactate; Complete Time: 13:36 [facility] 10/15 12:26 Order name: Saline Lock; Complete Time: 13:31 [facility] Administered Medications: 14:05 Drug: Tetanus-Diphtheria Toxoid Adult 0.5 ml {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 Exp: ss 08/19/2021. Lot #: [id number]. } Route: IM; Site: left deltoid; 14:25 Follow up: Response: No adverse reaction ls4 Disposition: 10/16/19 14:20 Discharged to Home. Impression: Cellulitis of right lower limb. - Condition is Stable. - Discharge Instructions: Cellulitis, Adult. - Prescriptions for Bactrim DS 800- 160 mg Oral Tablet - take 1 tablet by ORAL route every 12 hours for 10 days; 20 tablet. - Medication Reconciliation Form, Thank You Letter, Antibiotic Education, Prescription Opioid Use form. - Follow up: Chucky Hernandez MD; When: 2 - 3 days; Reason: Recheck today's complaints, Continuance of care, Re-evaluation by your physician. Addendum: 10/18/2019 09:06 Co-signature as Attending Physician, Reagan Sharpe MD I agree with the assessment and c smith plan of care. Signatures: Dispatcher [employer] EDRI Reagan Sharpe MD MD cha Mickail, Joel, PA PA Jeanie Leiva, LISA RN ss Catina Mendosa RN RN ls4 Corrections: (The following items were deleted from the chart) 10/15 14:39 14:20 10/16/2019 14:20 Discharged to Home. Impression: Cellulitis of right lower limb. ls4 Condition is Stable. Forms are Medication Reconciliation Form, Thank You Letter, Antibiotic Education, Prescription Opioid Use. Follow up: Chucky Hernandez; When: 2 - 3 days; Reason: Recheck today's complaints, Continuance of care, Re-evaluation by your physician. [facility]
[2019-10-16 14:44] VITALS: BP 175/59; TEMP 99; O2SAT 100
== END 2019-10-16 14:39 | disposition home or self-care (01) ==
LOC: ER 10:51
DX: L03.115 Cellulitis of right lower limb (principal); W20.8XXA Other cause of strike by thrown, projected or falling object, initial encounter; Y93.9 Activity, unspecified; Y92.9 Unspecified place or not applicable; Z88.6 Allergy status to analgesic agent
CPT/HCPCS: 36415; 80053; 83605; 84145; 85025; 90471; 90714; 93971; 99284

== ENCOUNTER 2020-01-03 15:31 | Inpatient (IN) | payer OTHER ==
--- NOTE | 2020-01-03 16:36 | RAD REPORT ---
EXAM DESCRIPTION: RAD - Chest Single View - 01/03/2020 4:28 pm CLINICAL HISTORY: sh;SOB Chest pain. COMPARISON: Chest Single View dated 09/14/2019; Chest Single View dated 08/10/2019; Chest Single View d ated 06/17/2018; Chest Single View dated 12/23/2017 FINDINGS: Portable technique limits examination quality. Mild interstitial pulmonary edema is noted. Small bilateral pleural effusions suspected. The heart is mildly enlarged in size. Tortuous and atherosclerotic aorta. IMPRESSION: Mild CHF versus volume overload pattern.
[2020-01-03 17:27] LABS: Absolute Lymphocytes (CBC) 1.2 K/uL (0.7-4.9); Basophils % 0.4 % (0-1.3); Hematocrit 33.5 % (36.0-45.0); Lymphocytes % 20.1 % (15.3-44.8); MPV 9.5 fL (7.6-11.3); Protime INR 1.16; RBC Red Blood Cell Count 3.86 M/uL (3.86-4.86)
[2020-01-03 17:38] LABS: Albumin 3.6 g/dL (3.4-5.0); Bilirubin Direct 0.2 mg/dL (0-0.2); Bilirubin Total 0.6 mg/dL (0.2-1.0); Magnesium 2.4 mg/dL (1.8-2.4); Potassium 4.6 mmol/L (3.5-5.1); Protein, Total 7.1 g/dL (6.4-8.2); Troponin (Emerg Dept Use Only) 0.03 ng/mL (0.0-0.045)
--- OUTSIDE RECORDS SUMMARY | 2020-01-03 18:50 | XMS REPORT | Continuity of Care Document ---
:1935 Author Organization [facility] t Address [address] [place] [address] Care Team Providers Name Role Phone Tirso MONSALVE, Julien Attending Clinician Doctor Unassigned, Name Attending Clinician Unavailable Problems This patient has no known problems. Allergies, Adverse Reactions, Alerts This patient has no known allergies or adverse reactions. Medications This patient has no known medications. Procedures This patient has no known procedures. Encounters Start End Encounter Admission Attending Care Care Encounter Source Date/Time Date/Time Type Type Clinicians Facility Department ID 2019-09-24 2019-09-24 Office AMINA Chahal [id number] 09:21:56 09:59:10 Visit [facility] [id number] Surgical [id number] Special [id number] [place] 2019-09-23 2019-09-23 Orders Doctor SALVATORE [id number] 00:00:00 00:00:00 Only UnassignedJON [id number] [place] [facility] [id number] Results This patient has no known results.
[2020-01-03] MEDS ORDERED: FUROSEMIDE 40 MG/4 ML VIAL ONE (19:12)
[2020-01-03] MEDS ORDERED: METOPROLOL TAR 25 MG TAB ONE (19:12)
[2020-01-03] MEDS ORDERED: MAGNESIUM SULFATE 1 gm IVPB 1 GM/100 ML BAG IV ONE (19:13)
--- NOTE | 2020-01-03 19:25 | RAD REPORT ---
EXAM DESCRIPTION: US - Extrem Venous W Compress [place] - 01/03/2020 7:20 pm CLINICAL HISTORY: Pain;Swelling Bilateral leg edema and swelling. COMPARISON: Extremity Venous Uni Ltd dated 10/16/2019 TECHNIQUE: Real-time sonographic interrogation of the left and right lower extremity deep venous sys tems was performed. FINDINGS: Normal compressibility, flow augmentation, phasic flow and spontaneous flow is identified in both the left and right lower extremity deep venous systems. 3 cm left Galindo's cyst. IMPRESSION: No sonographic evidence of left or right lower extremity deep venous thrombosis.
[2020-01-03] MEDS ORDERED: ACETAMINOPHEN 500 MG TAB PO PRN (19:28)
[2020-01-03] MEDS ORDERED: IPRATROPIUM BROM 0.5MG/2.5ML NEB PRN (19:28)
[2020-01-03] MEDS ORDERED: ALBUTEROL 2.5 MG/3 ML NEB SOL NEB PRN (19:28)
[2020-01-03] MEDS ORDERED: ONDANSETRON 4 MG/2 ML VIAL IV PRN (19:28)
[2020-01-03] MEDS ORDERED: LEVALBUTEROL 1.25 MG/3 ML NEB ONE (19:30)
--- NOTE | 2020-01-03 20:21 | ER ---
Nurse's Notes [facility] Name: Nishant Finney Age: 84 yrs Sex: Female : 1935 Arrival Date: 01/03/2020 Time: 15:34 Bed 19 Private MD: Chucky Hernandez R Diagnosis: Unspecified combined systolic (congestive) and diastolic (congestive) heart failure;Ventricular tachycardia;Orthopnea Presentation: 01/02 15:44 Chief complaint: Patient states: SOB wheezing for 1 week. Unable to sleep well due to ll1 SOB. Coronavirus screen: Proceed with normal triage. Patient denies a cough. Patient reports shortness of breath or difficulty breathing. Patient denies measured and/or subjective temperature greater than 100.4F prior to today's visit. Patient denies travel on a cruise ship or to a country the [facility] currently lists as an affected area. Patient denies contact with known and/or suspected case of COVID-19. Ebola Screen: Patient denies travel to an Ebola-affected area in the 21 days before illness onset. Initial Sepsis Screen: Does the patient meet any 2 criteria? No. Patient's initial sepsis screen is negative. Risk Assessment: Do you want to hurt yourself or someone else? Patient reports no desire to harm self or others. Onset of symptoms was December 26, 2019. 15:44 Method Of Arrival: Wheelchair ll1 15:44 Acuity: JONO 3 ll1 22:27 Initial Sepsis Screen: Does the patient have a suspected source of infection? No. ah Patient's initial sepsis screen is negative. Historical: - Allergies: 15:46 Codeine; ll1 - PMHx: 15:46 Diabetes - NIDDM; Rheumatoid Arthritis; Hypertension; Hyperlipidemia; ll1 - Immunization history:: Adult Immunizations up to date. - Social history:: Patient/guardian denies using alcohol, street drugs, tobacco products. Screenin:27 Abuse screen: Denies threats or abuse. Nutritional screening: No deficits noted. Tuberculosis screening: No symptoms or risk factors identified. Fall Risk None identified. Assessment: 16:00 General: Appears in no apparent distress. Pain: Denies pain. Neuro: Level of Consciousness is awake, alert, Oriented to person, place, time. Cardiovascular: Denies chest pain, Heart tones S1 S2 present Capillary refill < 3 seconds Patient's skin is warm and dry. Respiratory: Airway is patent Respiratory effort is even, labored, Respiratory pattern is regular, symmetrical, Breath sounds with wheezes bilaterally. the patient has moderate shortness of breath. GI: Patient currently denies nausea. 17:00 Reassessment: Patient and/or family updated on plan of care and expected duration. Pain ah level reassessed. Patient is alert, oriented x 3, equal unlabored respirations, skin warm/dry/pink. Patient states symptoms have improved. 19:30 Reassessment: Patient and/or family updated on plan of care and expected duration. Pain ah level reassessed. medications given at this time. 20:30 Reassessment: Pt tolerated medications well. Pt states that she is breathing easier at this time. No other needs voiced. Vital Signs: 15:44 BP 147 / 72; Pulse 70; Resp 18; Temp 98.2; Pulse Ox 98% on R/A; Pain 0/10; ll1 16:46 BP 164 / 78; Pulse 69; Resp 18; Pulse Ox 95% ; ah 17:45 BP 174 / 67; Pulse 68; Resp 18; Pulse Ox 92% ; ah 18:30 BP 183 / 73; Pulse 85; Resp 18; Pulse Ox 94% ; ah 19:15 BP 154 / 99; Pulse 93; Resp 20; Pulse Ox 96% ; ah 20:00 BP 169 / 60; Pulse 72; Resp 18; Pulse Ox 95% ; ah 20:45 BP 176 / 70; Pulse 76; Resp 18; Pulse Ox 97% ; ah 21:53 BP 141 / 70; Pulse 85; Resp 18; Pulse Ox 97% ; ah ED Course: 15:34 Patient arrived in ED. mr 15:35 Chucky Hernandez MD is Private Physician. mr 15:45 Triage completed. ll1 15:46 Arm band placed on Patient placed in an exam room, on a stretcher. ll1 15:48 Reagan Buchanan PA is PHCP. cp 15:48 Reagan Sharpe MD is Attending Physician. cp 16:29 XRAY Chest (1 view) In Process Unspecified. EDMS 16:43 Jaquelin Zee, RN is Primary Nurse. ah 18:00 EKG done, by ED staff, reviewed by Reagan ROCHE. Inserted saline lock: 22 gauge in jp3 left antecubital area, using aseptic technique. 18:27 Prezas, Adam, DO is Hospitalizing Provider. cp 19:21 US Extremity Venous W Compression [place] In Process Unspecified. EDMS 22:27 Patient has correct armband on for positive identification. Placed in gown. Bed in low ah position. Call light in reach. Side rails up X2. phototypesetting equipment monitor on. Pulse ox on. NIBP on. 22:29 No provider procedures requiring assistance completed. Patient admitted, IV remains in ah place. Administered Medications: 19: Drug: Magnesium Sulfate 1 grams Route: IVPB; Infused Over: 1 hrs; Site: left forearm; 22:33 Follow up: Response: No adverse reaction; IV Status: Completed infusion ah 19: Drug: Metoprolol 25 mg Route: PO; 22:33 Follow up: Response: No adverse reaction 19: Drug: Xopenex 1.25 mg Route: Inhalation; 19:29 Drug: Lasix 40 mg Route: IVP; Site: left forearm; 22:32 Follow up: Response: No adverse reaction Outcome: 18:28 Decision to Hospitalize by Provider. cp 22:28 Admitted to Med/surg accompanied by tech, via stretcher, room 426, with chart, Report ah called to receiving nurse 22:28 Condition: stable 22:28 Instructed on the need for admit. 23:04 Patient left the ED. mg2 Signatures: Dispatcher [employer] EDND Fabiana Fuentes Corey, PA PA cp Erich Aquino, LISA RN mg2 Joseph Jimenez jp3 Jaquelin Zee RN RN Narayan Vaughan RN RN ll1
--- NOTE | 2020-01-03 20:21 | EDPHYS ---
Physician Documentation [facility] Name: Nishant Finney Age: 84 yrs Sex: Female : 1935 Arrival Date: 01/03/2020 Time: 15:34 Bed 19 Private MD: Chucky Hernandez R ED Physician Reagan Sharpe HPI: 01/02 16:00 This 84 yrs old Black Female presents to ER via Wheelchair with complaints of Asthma cp Exacerbation, trouble sleeping. 16:00 The patient has shortness of breath with light activity, while laying flat. Onset: The cp symptoms/episode began/occurred gradually, 1 week(s) ago. 16:00 Duration: The symptoms are continuous, and are steadily getting worse. cp 16:00 Associated signs and symptoms: Pertinent positives: wheezing, Pertinent negatives: cp chest pain, non-productive cough, productive cough, dizziness, fever, vomiting. Severity of symptoms: in the emergency department the symptoms are unchanged despite home interventions. Historical: - Allergies: 15:46 Codeine; ll1 - PMHx: 15:46 Diabetes - NIDDM; Rheumatoid Arthritis; Hypertension; Hyperlipidemia; ll1 - Immunization history:: Adult Immunizations up to date. - Social history:: Patient/guardian denies using alcohol, street drugs, tobacco products. ROS: 16:05 Constitutional: Negative for body aches, chills, fever, poor PO intake. cp 16:05 Eyes: Negative for injury, pain, redness, and discharge. cp 16:05 ENT: Negative for ear pain, sore throat, difficulty swallowing, difficulty handling secretions. 16:05 Cardiovascular: Positive for edema, Negative for chest pain, palpitations. 16:05 Respiratory: Positive for orthopnea, shortness of breath, on exertion. wheezing, Negative for cough, hemoptysis. 16:05 Abdomen/GI: Negative for abdominal pain, nausea, vomiting, and diarrhea. 16:05 Back: Negative for radiated pain. 16:05 : Negative for urinary symptoms. 16:05 Skin: Negative for diaphoresis, rash. 16:05 Neuro: Negative for altered mental status, dizziness, headache, syncope, weakness. 16:05 All other systems are negative. Exam: 16:12 Constitutional: The patient appears in no acute distress, alert, awake, cp non-diaphoretic, non-toxic, well developed, frail. 16:12 Head/Face: Normocephalic, atraumatic. cp 16:12 Eyes: Periorbital structures: appear normal, Conjunctiva: normal, no exudate, no injection, Lids and lashes: appear normal, bilaterally. 16:12 ENT: External ear(s): are unremarkable, Nose: is normal, Mouth: Lips: moist, Oral mucosa: moist, Posterior pharynx: is normal, airway is patent, no erythema, no exudate. 16:12 Neck: ROM/movement: is normal, is supple, without pain, no range of motions limitations. 16:12 Chest/axilla: Inspection: normal. 16:12 Cardiovascular: Rate: normal, Rhythm: regular, Edema: ankle edema, that is mild, JVD: is not appreciated. 16:12 Respiratory: the patient does not display signs of respiratory distress, Respirations: normal, no use of accessory muscles, no retractions, no splinting, no tachypnea, labored breathing, is not present, Breath sounds: decreased breath sounds, that are mild, throughout, stridor, is not appreciated, wheezing: that is mild, is heard diffusely. 16:12 Abdomen/GI: Exam negative for discomfort, distension, guarding, Inspection: abdomen appears normal. 16:12 Back: pain, is absent, ROM is normal. 16:12 Skin: no rash present. 16:12 Neuro: Orientation: to person, place \T\ time. Mentation: is normal, Motor: moves all fours, strength is normal, Sensation: no obvious gross deficits. 17:40 ECG was reviewed by the Attending Physician. cp Vital Signs: 15:44 BP 147 / 72; Pulse 70; Resp 18; Temp 98.2; Pulse Ox 98% on R/A; Pain 0/10; ll1 16:46 BP 164 / 78; Pulse 69; Resp 18; Pulse Ox 95% ; ah 17:45 BP 174 / 67; Pulse 68; Resp 18; Pulse Ox 92% ; ah 18:30 BP 183 / 73; Pulse 85; Resp 18; Pulse Ox 94% ; ah 19:15 BP 154 / 99; Pulse 93; Resp 20; Pulse Ox 96% ; ah 20:00 BP 169 / 60; Pulse 72; Resp 18; Pulse Ox 95% ; ah 20:45 BP 176 / 70; Pulse 76; Resp 18; Pulse Ox 97% ; ah 21:53 BP 141 / 70; Pulse 85; Resp 18; Pulse Ox 97% ; ah MDM: 15:55 Patient medically screened. cp 16:00 Differential diagnosis: Anemia asthma, Bronchitis Chronic Obstructive Pulmonary Disease cp Myocardial Infarction pneumonia, pulmonary edema, Pulmonary Embolism Sepsis Unstable Angina. 18:10 Data reviewed: vital signs, nurses notes, lab test result(s), EKG, radiologic studies, cp plain films, and as a result, I will admit patient. 18:10 Antibiotic administration: Not indicated, the patient does not have an appreciated cp infiltrate. Test interpretation: by ED physician or midlevel provider: ECG. Counseling: I had a detailed discussion with the patient and/or guardian regarding: the historical points, exam findings, and any diagnostic results supporting the discharge/admit diagnosis, lab results, radiology results, the need for further work-up and treatment in the hospital. 18:30 Physician consultation: Loyd Stoddard MD was contacted at 18:30, regarding consult, cp patient's condition, findings on EKG concerning for V-tach, recommends IV magnesium 1 gram and admit to hospitalist. 18:30 Physician consultation: Adam Herrmann DO was called at 18:25, was contacted at 18:25, cp regarding admission, to the telemetry unit. patient's condition. 01/02 15:56 Order name: Basic Metabolic Panel; Complete Time: 17:44 01/02 17:44 Interpretation: Normal except: CL 112; GLUC 107; BUN 44; CRE 1.49; GFR 40. 01/02 15:56 Order name: CBC with Diff; Complete Time: 17:44 01/02 17:45 Interpretation: Normal except: HGB 10.8; HCT 33.5; RDW 15.6. 01/02 15:56 Order name: LFT's; Complete Time: 17:44 01/02 15:56 Order name: Magnesium; Complete Time: 17:44 01/02 17:52 Interpretation: MG 2.4; Reviewed. 01/02 15:56 Order name: NT PRO-BNP; Complete Time: 17:44 01/02 17:45 Interpretation: Abnormal: NT PRO-BNP 41670. 01/02 15:56 Order name: PT-INR; Complete Time: 17:44 01/02 15:56 Order name: Troponin (emerg Dept Use Only); Complete Time: 17:44 cp 01/02 17:52 Interpretation: TROPED 0.03; Reviewed. cp 01/02 19:35 Order name: CBC with Automated Diff EDMS 01/02 19:35 Order name: CBC with Automated Diff EDMS 01/02 19:35 Order name: Comprehensive Metabolic Panel EDMS 01/02 19:35 Order name: Comprehensive Metabolic Panel EDGA 01/02 19:35 Order name: Magnesium EDGA 01/02 19:35 Order name: Magnesium EDMS 01/02 19:35 Order name: NT PRO-BNP EDGA 01/02 15:56 Order name: XRAY Chest (1 view) cp 01/02 15:56 Order name: EKG; Complete Time: 15:57 cp 01/02 15:56 Order name: Cardiac monitoring; Complete Time: 18:07 cp 01/02 15:56 Order name: EKG - Nurse/Tech; Complete Time: 18:07 cp 01/02 17:47 Order name: US Extremity Venous W Compression [place] 01/02 19:35 Order name: CONS Physician Consult EDGA 01/02 19:35 Order name: Heart Healthy EDGA 01/02 19:35 Order name: Echo with Doppler EDMS 01/02 19:35 Order name: Echo with Doppler EDGA 01/02 19:35 Order name: NT PRO-BNP EDGA 01/02 19:35 Order name: Phosphorus EDGA 01/02 19:35 Order name: Phosphorus EDGA 01/02 15:56 Order name: IV Saline Lock; Complete Time: 18:07 cp 01/02 15:56 Order name: Labs collected and sent; Complete Time: 17:20 cp 01/02 15:56 Order name: O2 Per Protocol; Complete Time: 18:07 cp 01/02 15:56 Order name: O2 Sat Monitoring; Complete Time: 18:07 cp EC:40 Rate is 95 beats/min. Rhythm is regular. FL interval is normal. QRS interval is cp prolonged at 142 msec. QT interval is normal. T waves are Inverted in leads I, II, aVL, V5. Interpreted by me. Reviewed by me. Administered Medications: 19:27 Drug: Magnesium Sulfate 1 grams Route: IVPB; Infused Over: 1 hrs; Site: left forearm; 22:33 Follow up: Response: No adverse reaction; IV Status: Completed infusion 19:27 Drug: Metoprolol 25 mg Route: PO; 22:33 Follow up: Response: No adverse reaction 19:27 Drug: Xopenex 1.25 mg Route: Inhalation; 19:29 Drug: Lasix 40 mg Route: IVP; Site: left forearm; 22:32 Follow up: Response: No adverse reaction Disposition: 01/03 12:56 Co-signature as Attending Physician, Reagan Sharpe MD I agree with the assessment and [facility] plan of care. Disposition: 01/03/20 18:28 Hospitalization ordered by Adam Herrmann for Observation. Preliminary diagnosis are Unspecified combined systolic (congestive) and diastolic (congestive) heart failure, Ventricular tachycardia, Orthopnea. - Bed requested for Telemetry/MedSurg (observation). - Status is Observation. mg2 - Condition is Stable. - Problem is new. - Symptoms have improved. Signatures: Dispatcher [employer] EDGA Reagan Sharpe MD MD cha Page, Corey, PA PA cp Elisabet Blackmon RN RN cg Erich Aquino RN RN [facility] Jaquelin Zee RN RN Narayan Vaughan RN RN ll1 Corrections: (The following items were deleted from the chart) 01/02 18:28 18:28 Hospitalization Ordered by Adam Herrmann DO for Observation. Preliminary cp diagnosis is Unspecified combined systolic (congestive) and diastolic (congestive) heart failure; Ventricular tachycardia. Bed requested for Telemetry/MedSurg (observation). Status is Observation. Condition is Stable. Problem is new. Symptoms have improved. cp 21:18 18:28 01/03/2020 18:28 Hospitalization Ordered by Adam Herrmann DO for Observation. cg Preliminary diagnosis is Unspecified combined systolic (congestive) and diastolic (congestive) heart failure; Ventricular tachycardia; Orthopnea. Bed requested for Telemetry/MedSurg (observation). Status is Observation. Condition is Stable. Problem is new. Symptoms have improved. cp 23:04 21:18 01/03/2020 18:28 Hospitalization Ordered by Adam Herrmann DO for Observation. mg2 Preliminary diagnosis is Unspecified combined systolic (congestive) and diastolic (congestive) heart failure; Ventricular tachycardia; Orthopnea. Bed requested for Telemetry/MedSurg (observation). Status is Observation. Condition is Stable. Problem is new. Symptoms have improved. cg
[2020-01-03 23:38] VITALS: BMI 24.8
[2020-01-04] MEDS: FUROSEMIDE 40 MG/4 ML VIAL IV SCH ×3 (01:06→20:45)
[2020-01-04] MEDS ORDERED: METOPROLOL TARTRATE 5 MG/5 ML INJ IV STA (04:55)
[2020-01-04] MEDS ORDERED: METOPROLOL XL 50 MG TAB PO SCH (06:00)
[2020-01-04 06:13] LABS: Absolute Lymphocytes (CBC) 1.6 K/uL (0.7-4.9); Basophils % 0.5 % (0-1.3); Hematocrit 32.2 % (36.0-45.0); Lymphocytes % 30.3 % (15.3-44.8); MPV 8.7 fL (7.6-11.3); RBC Red Blood Cell Count 3.71 M/uL (3.86-4.86)
[2020-01-04 06:28] LABS: Albumin 3.2 g/dL (3.4-5.0); Bilirubin Total 0.6 mg/dL (0.2-1.0); Magnesium 2.5 mg/dL (1.8-2.4); Phosphorus 4.2 mg/dL (2.5-4.9); Potassium 3.9 mmol/L (3.5-5.1); Protein, Total 6.3 g/dL (6.4-8.2)
[2020-01-04] MEDS ORDERED: PNEUMOCOCCAL VACCINE 0.5 ML IMVAC ONE (08:00)
[2020-01-04] MEDS: ENOXAPARIN 30 MG/0.3 ML SQ SCH (08:31)
[2020-01-04] MEDS: CLOPIDOGREL 75 MG TABLET PO SCH (08:32)
[2020-01-04] MEDS: POTASSIUM 25 MEQ EFFERV TAB PO SCH (08:32)
[2020-01-04] MEDS: ASPIRIN EC 81 MG TAB PO SCH (08:32)
[2020-01-04] MEDS ORDERED: METHYLPREDNISOLONE 40 MG INJ IV ONE (08:45)
[2020-01-04] MEDS ORDERED: VALSARTAN 80 MG TAB PO SCH (09:00)
[2020-01-04] MEDS ORDERED: FUROSEMIDE 20 MG/ 2ML VIAL IV SCH (09:00)
[2020-01-04] MEDS ORDERED: IPRATROPIUM BROM 0.5MG/2.5ML NEB PRN (09:00)
[2020-01-04] MEDS ORDERED: HOME MED 1 EA UNK (Metoprolol Tartrate [Metoprolol Tartrate] 100 MG) PO SCH (09:00)
[2020-01-04] MEDS: SUCRALFATE 1 GM TABLET PO SCH ×2 (09:48→20:43)
[2020-01-04] MEDS: IRBESARTAN 150 MG TAB PO SCH (09:48)
[2020-01-04 11:58] LABS: Urine Appearance CLEAR; Urine Bilirubin NEGATIVE (NEG); Urine Blood NEGATIVE (NEG); Urine Color YELLOW; Urine Glucose NEGATIVE (NEG); Urine Protein NEGATIVE (NEG); Urine Urobilinogen 0.2 mg/dL (0.2-1.0); Urine pH 5.5 (5.0-7.0)
[2020-01-04 12:02] LABS: Urine Microscopic Reflex NO UMIC
[2020-01-04 12:08] LABS: Urine Protein/Creatinine Ratio 0.43 ratio (<0.15)
--- NOTE | 2020-01-04 14:51 | RAD REPORT ---
EXAM DESCRIPTION: US - Renal Ultrasound-Complete - 01/04/2020 11:49 am CLINICAL HISTORY: SOFIA Flank pain COMPARISON: Renal Ultrasound-Complete dated 11/19/2019 FINDINGS: Both kidneys are normal in size, shape and echotexture. The right kidney measures 9.3 x 4.0 x 3.7 cm. Mild right hydronephrosis. The left kidney measures 9.5 x 5.1 x 3.6 cm. No hydronephrosis, focal mass or perinephric fluid. The urinary bladder is incompletely distended without gross abnormality seen. IMPRESSION: Mild right hydronephrosis.
--- NOTE | 2020-01-04 15:45 | CON ---
Date of Consultation: 01/04/2020 Reason For Consultation: Elevated BUN and creatinine, fluid management. History Of Present Illness: This is a pleasant 84-year-old female, well known to me from the office with significant past medical history of hypertension, hyperlipidemia, diabetes complicated with neur opathy, chronic kidney disease, baseline creatinine of 1.2 with GFR of 48, as by October 2019, secondar y to diabetic nephropathy. Patient was in her regular state of health, came to the hospital complain ing from shortness of breath increased and her leg swelling found to be over volume. Patient was adm itted, started on IV Lasix. Patient's shortness of breath has been subsided. Still have leg swellin g, but better. Patient denied taking any nonsteroidal. No recent change in her medication. Past Medical History: 1.Rheumatoid arthritis. 2.Hypertension. 3.Hyperlipidemia. 4.Diabetes complicated with neuropathy and nephropathy. 5.Chronic kidney disease, baseline creatinine 1.2 to 1.3. GFR 40 to 45. Allergies: CODEINE AND TRAMADOL. Social History: Denies smoking. Denies drinking. Denies drugs abuse. Family History: Positive for hypertension. Past Surgical History: Total knee replacement, cholecystectomy. Review of Systems: Head and Neck: No red eye. No ear pain. GI: No nausea. No vomiting. : No polyuria. No dysuria. No hematuria. Ch[employer] Mixer: No vaginal discharge. Respiratory: Has shortness of breath. Cardiovascular: Has leg swelling. Has orthopnea. Endocrine: No polydipsia. Skin: No rash. Neuro: Slightly confused. No focal weakness. Musculoskeletal: Low back pain. Home Medications: Prednisone, Carafate, metoprolol, irbesartan, Lasix 40 daily, enalapril, Plavix, a torvastatin, and breathing treatment. Current Medications In The Hospital: Lasix 20 t.i.d., irbesartan, metoprolol, Zofran, KCl, prednison e, and Carafate. Physical Examination: Vital Signs: When I saw the patient; blood pressure of 172/50, pulse of 75, afebrile. Chest: Crackles bilateral base. Heart: S1, S2 systolic murmur. Abdomen: Soft, nontender. Extremities: +2 edema, more prominent on the left side. Neurologic: Alert, nonfocal. Laboratory Data: Sodium 144, potassium 3.9, bicarb 25, BUN 42, creatinine 1.4. GFR of 41, calcium 8 .5. BNP of 18,000. WBC 5.3, H and H 10.2/32.2. Assessment And Plan: 1.Acute kidney injury secondary to cardiorenal on chronic kidney disease, over volume. I am going t o go ahead and increase her Lasix to 40 mg b.i.d. and we will continue to monitor the patient. 2.Hypertension. We will utilize blood pressure for more diuresis. I agree with continue the Avapro . Continue metoprolol. I place the patient on nitroglycerin patch and we will follow up. 3.Congestive heart failure with exacerbation. Acute coronary syndrome has been ruled out. We will follow up with the primary. 4.Diabetes, as by primary. 5.Edema secondary to renal failure/cardiorenal. TSH will be sent. We will try to optimize fluid status for the patient and we will follow up. JESSIE Voice ID: [id number] Report ID: [id number]
[2020-01-04 16:27] LABS: Magnesium 2.4 mg/dL (1.8-2.4); Potassium 4.6 mmol/L (3.5-5.1)
--- NOTE | 2020-01-04 16:44 | P.HP ---
Certification for Inpatient Patient admitted to: Observation With expected LOS: <2 Midnights Patient will require the following post-hospital care: None Practitioner: I am a practitioner with admitting privileges, knowledge of patient current condition, hospital course, and medical plan of care. Services: Services provided to patient in accordance with Admission requirements found in Title 42 Section 412.3 of the Code of Federal Regulations Patient History Date of Service: 01/03/20 Reason for admission: Shortness of breath History of Present Illness: Patient is an 84yo who was admitted to the hospital with difficulty breathing. Patient has a history of hypertension and type 2 diabetes. Patient has been feeling worse over the last few days and she finally decided to come into the emergency room for further evaluation. Patient has a history of COPD and is on home oxygen as well. She takes and nebulizer treatments regularly. In the emergency room she was tachypneic and hypoxic. Her chest x-ray revealed CHF exacerbation. Decision was made to admit the patient to the hospital for further evaluation. Allergies codeine [Codeine] Adverse Reaction (Mild, Verified 04/14/17 11:59) Nausea Home Medications: Albuterol Inhaler [Ventolin Inhaler*] 2 puff IH Q4HP PRN 01/04/20 Atorvastatin Calcium 20 mg PO DAILY 01/04/20 Clopidogrel Bisulfate [Plavix*] 75 mg PO DAILY 01/04/20 Etanercept [Enbrel] mg SQ EVERY 7TH DAY 01/04/20 Fluticasone/Umeclidin/Vilanter [Trelegy Ellipta 100-62.5-25] 1 dose IH BID 01/04/20 Furosemide [Lasix*] 40 mg PO DAILY 01/04/20 Irbesartan 300 mg PO DAILY 01/04/20 Metoprolol Tartrate 100 mg PO BID 01/04/20 Sucralfate [Carafate*] 1 gm PO BID 01/04/20 predniSONE [Deltasone*] 10 mg PO BID 01/04/20 - Past Medical/Surgical History Has patient received pneumonia vaccine in the past: No Diabetic: Yes -: Rheumatoid Arthritis -: HTN -: NIDDM -: Asthma -: CEREBROVASCULAR DISEASE -: 2011 -: Diastolic dysfunction -: RIGHT TOTAL KNEE REPLACEMENT -: CHOLECYSTECTOMY -: ORIF RIGHT HIP -: HYSTERECTOMY - Family History Father Family History: Reviewed- Non-Contributory - Social History Smoking Status: Never smoker Alcohol use: No CD- Drugs: No Caffeine use: Yes Place of Residence: Home Review of Systems 10-point ROS is otherwise unremarkable Physical Examination - Vital Signs Temperature: 98.0 F Blood Pressure: 159/75 Pulse: 110 Respirations: 18 Pulse Ox (%): 98 - Physical Exam General: Alert, In no apparent distress, Oriented x3 HEENT: Atraumatic, PERRLA, Mucous membr. moist/pink, EOMI, Sclerae nonicteric Neck: Supple, 2+ carotid pulse no bruit, No LAD, Without JVD or thyroid abnormality Respiratory: Diminished, Crackles/rales Cardiovascular: Regular rate/rhythm, Normal S1 S2, No murmurs Gastrointestinal: Normal bowel sounds, Soft and benign, Non-distended, No tenderness Musculoskeletal: No clubbing, No tenderness, Swelling Integumentary: No rashes Neurological: Normal speech, Normal tone, Sensation intact, Cranial nerves 3-12 intact, Normal affect, Abnormal strength Lymphatics: No axilla or inguinal lymphadenopathy - Studies Laboratory Data (last 24 hrs) 01/03/20 16:55: PT 13.6 H, INR 1.16 01/03/20 16:55: WBC 5.9, Hgb 10.8 L, Hct 33.5 L, Plt Count 204 01/03/20 16:55: Sodium 140, Potassium 4.6, BUN 44 H, Creatinine 1.49 H, Glucose 107 H, Magnesium 2.4, Total Bilirubin 0.6, AST 27, ALT 54, Alkaline Phosphatase 137 H Assessment & Plan - Problems (Diagnosis) (1) Acute exacerbation of CHF (congestive heart failure) Current Visit: Yes Status: Acute (2) Acute kidney injury Current Visit: Yes Status: Acute (3) COPD exacerbation Onset Date: 09/25/15 Current Visit: No Status: Acute (4) Diastolic CHF Current Visit: No Status: Chronic Qualifiers: Qualified Code(s): I50.33 - Acute on chronic diastolic (congestive) heart failure - Plan 1. Echocardiogram if it has not been performed in the last 6 months 2. Monitor renal function closely; nephrology consultation if worsens as well as renal ultrasound 3. Continue with low-dose beta-lexie 4. Cardiology consultation 5. Aggressive diuresis 6. Strict I's and O's 7. Repeat CXR 8. Daily weights 9. Continue with nebs and low-dose steroids. Changed to prednisone if renal function worsens 10.Education regarding diet and treatment of congestive heart failure Discharge Plan: Home Plan to discharge in: Greater than 2 days - Advance Directives Does patient have a Living Will: Yes Does patient have a Durable POA for Healthcare: Yes - Code Status/Comfort Care Code Status Assessed: Yes Code Status: Full Code Critical Care: No Time Spent Managing PTS Care (In Minutes): 45
--- NOTE | 2020-01-04 19:28 | EKG ---
Test Date: 2020-01-03 Test Time: 17:34:16 Rv Service Technician: OTIS MEASUREMENT RESULTS: Intervals: Rate: 95 NM: 132 QRSD: 142 QT: 402 QTc: 505 [place]: P: 91 NM: 132 QRS: -11 T: 162 INTERPRETIVE STATEMENTS: Sinus rhythm with frequent and consecutive premature ventricular complexes Left bundle branch block Abnormal ECG Compared to ECG 09/14/2019 22:08:50 Ventricular premature complex(es) now present Atrial premature complex(es) no longer present Left-axis deviation no longer present Electronically Signed On 01-04-20 19:24:17 CDT by Loyd Stoddard
[2020-01-04] MEDS: METOPROLOL TAR 50 MG TAB PO SCH (20:44)
[2020-01-04] MEDS: predniSONE 10 MG TAB PO SCH (20:45)
[2020-01-04] MEDS ORDERED: ATORVASTATIN 20 MG TAB PO SCH (21:00)
--- NOTE | 2020-01-04 22:24 | CON ---
Date of Consultation: 01/04/2020 Patient is an 84-year-old black woman admitted to Dr. Robles's service on 01/03/2020. I saw the patien t on 01/04/2020. Reason For Consultation: Congestive heart failure. History Of Present Illness: Ms. Finney is an 84-year-old woman, has seen Dr. Zee in the past. Kiran gamboa has known mild coronary artery disease as of 2017, without significant stenosis with an ejection fr action of 45% to 49%. She has chronic systolic congestive heart failure that is mild class 1. She h as a history of diabetes, hypertension, dyslipidemia, rheumatoid arthritis. She came in with shortne ss of breath, was found to have congestive heart failure on chest x-ray and was having intermittent r uns of ventricular tachycardia with short beats of 3-4 beats without any hemodynamic compromise. She denied any chest pain. Denied any nausea, vomiting. Has had diaphoresis, shortness of breath. Den ied palpitations. Denied any syncope. Denied any fever or chills or cough. Past Medical History: As stated above. Allergies: SHE IS ALLERGIC TO CODEINE. Review of Systems: Negative. Social History: Negative. Family History: Noncontributory. Medications: At home include, inhalers, Lipitor, Plavix, Lasix, Avapro, metoprolol, Carafate, and pr ednisone. Physical Examination: General: She is very pleasant, alert and oriented x3. Vital Signs: Stable. She was afebrile. She was in a sinus rhythm with occasional PVCs. HEENT: Negative. Neck: Supple without any bruit, lymphadenopathy, JVD, or thyromegaly. Chest: Reveals some rales both bases. Cardiac: Revealed a regular rhythm and rate with an S4 gallops. No murmurs or rubs. Abdomen: Benign. Extremities: Revealed no clubbing, cyanosis, or edema. Skin: Dry and intact. NEUROLOGIC: Nonfocal. Pulses were present in the dorsalis pedis and posterior tibial bilaterally. Diagnostic Data: Chest x-ray showed volume overload. Creatinine is 1.48. BNP was 18,167. Venous D oppler was negative. EKG with nonspecific changes with sinus rhythm. Impression And Plan: 1.Acute on chronic systolic congestive heart failure. 2.Short burst of ventricular tachycardia secondary to congestive heart failure. 3.Elevated BNP secondary to congestive heart failure. 4.Renal insufficiency stage III. 5.Mild coronary artery disease. 6.Diabetes, well controlled. 7.Hypertension, well controlled. 8.Dyslipidemia. 9.Rheumatoid arthritis. 10.Gastroesophageal reflux disease. 11.Mild chronic obstructive pulmonary disease. Plan: I agreed with Ms. Finney regimen for now. She may need more aggressive IV diuresis. Regardin g her ventricular tachycardia, I will increase her beta-lexie. She is not a good candidate for ami odarone with her lung status and her age and her renal dysfunction. It may be reasonable down the ro ad to repeat a stress test on Ms. Finney, but we will see how she does with her present regimen. The case was discussed with Dr. Herrmann. I will continue to follow the patient. Echocardiogram was pend ing, but was not done yet as of this dictation. AMY/FRANCOISE Voice ID: [id number] Report ID: [id number]
--- NOTE | 2020-01-05 03:36 | P.PN ---
Subjective Date of Service: 01/04/20 Patient states she feels better. Her respiratory status has slightly improved. However, her renal function has worsened. Continue with diuresing. Continue closely monitoring her renal function. Review of Systems 10-point ROS is otherwise unremarkable Physical Examination - Vital Signs Temperature: 98.5 F Blood Pressure: 143/59 Pulse: 75 Respirations: 16 Pulse Ox (%): 98 - Physical Exam General: Alert, In no apparent distress, Oriented x3 Respiratory: Clear to auscultation bilaterally, Normal air movement Cardiovascular: Regular rate/rhythm, Normal S1 S2, No murmurs Gastrointestinal: Normal bowel sounds, Soft and benign, Non-distended Musculoskeletal: No clubbing, Swelling Assessment & Plan - Problems (Diagnosis) (1) Acute exacerbation of CHF (congestive heart failure) Status: Acute (2) Acute kidney injury Status: Acute (3) COPD exacerbation Onset Date: 09/25/15 Status: Acute (4) Diastolic CHF Status: Chronic - Plan 1. Echocardiogram with global hypokinesis with ejection fraction of 35% 2. Renal function worsening; renal ultrasound with hydronephrosis which is mild but no evidence of obstructive uropathy 3. Continue with low-dose beta-lexie 4. Cardiology consultation appreciated 5. Continue with gentle diuresis 6. Strict I's and O's 7. Repeat CXR 8. Daily weights 9. Continue with nebs and low-dose steroids. Changed to prednisone if renal function worsens 10.Education regarding diet and treatment of congestive heart failure Discharge Plan: Home Plan to discharge in: Greater than 2 days - Advance Directives Does patient have a Living Will: Yes Does patient have a Durable POA for Healthcare: Yes - Code Status/Comfort Care Code Status: Full Code Critical Care: No Time Spent Managing PTS Care (In Minutes): 30
--- NOTE | 2020-01-05 03:41 | P.PN ---
Subjective Date of Service: 01/05/20 Patient continues to do well with no new complaints. Respiratory status is stable. Physical Examination - Vital Signs Temperature: 98.5 F Blood Pressure: 143/59 Pulse: 75 Respirations: 16 Pulse Ox (%): 98 Assessment & Plan - Problems (Diagnosis) (1) Acute exacerbation of CHF (congestive heart failure) Current Visit: Yes Status: Acute (2) Acute kidney injury Current Visit: Yes Status: Acute (3) COPD exacerbation Onset Date: 09/25/15 Current Visit: No Status: Acute (4) Diastolic CHF Current Visit: No Status: Chronic Qualifiers: Qualified Code(s): I50.33 - Acute on chronic diastolic (congestive) heart failure - Plan 1. Echocardiogram pending 2. Renal function worsening; renal ultrasound with hydronephrosis which is mild but no evidence of obstructive uropathy 3. Continue with low-dose beta-lexie 4. Cardiology consultation 5. Continue with gentle diuresis 6. Strict I's and O's 7. Repeat CXR 8. Daily weights 9. Continue with nebs and low-dose steroids. Changed to prednisone if renal function worsens 10.Education regarding diet and treatment of congestive heart failure Discharge Plan: Home Plan to discharge in: Greater than 2 days - Advance Directives Does patient have a Living Will: Yes Does patient have a Durable POA for Healthcare: Yes - Code Status/Comfort Care Code Status: Full Code Critical Care: No Time Spent Managing PTS Care (In Minutes): 35
[2020-01-05 05:54] LABS: RBC Red Blood Cell Count 3.67 M/uL (3.86-4.86)
[2020-01-05] MEDS: POTASSIUM 25 MEQ EFFERV TAB PO SCH (08:25)
[2020-01-05] MEDS: ENOXAPARIN 30 MG/0.3 ML SQ SCH (08:25)
[2020-01-05] MEDS: SUCRALFATE 1 GM TABLET PO SCH (08:26)
[2020-01-05] MEDS: ASPIRIN EC 81 MG TAB PO SCH (08:26)
[2020-01-05] MEDS: IRBESARTAN 150 MG TAB PO SCH (08:26)
[2020-01-05] MEDS: FUROSEMIDE 40 MG/4 ML VIAL IV SCH (08:26)
[2020-01-05] MEDS: METOPROLOL TAR 50 MG TAB PO SCH (08:26)
[2020-01-05] MEDS: predniSONE 10 MG TAB PO SCH (08:26)
[2020-01-05] MEDS: CLOPIDOGREL 75 MG TABLET PO SCH (08:26)
[2020-01-05 08:55] LABS: Rheumatoid Factor NEG (NEG)
[2020-01-05] MEDS ORDERED: NITROGLYCERIN 0.2 MG/HR (5 MG) PATCH TD SCH (09:00)
[2020-01-05 09:58] LABS: Albumin 3.3 g/dL (3.4-5.0); Ferritin 53.4 ng/mL (8-388); Folic Acid, (Folate) 14.5 ng/mL (3.1-17.5); Magnesium 2.2 mg/dL (1.8-2.4); Phosphorus 3.8 mg/dL (2.5-4.9); Thyroid Stimulating Hormone 0.743 uIU/mL (0.360-3.740); Uric Acid 10.1 mg/dL (2.6-6.0)
[2020-01-05] MEDS ORDERED: SOD FERRIC GLUC COMPLX/SUCROSE 250 MG in NA CHLORIDE 0.9% 250 ML IV SCH (11:00)
[2020-01-05 13:35] VITALS: O2SAT 100
--- NOTE | 2020-01-05 13:52 | PN ---
Date of Progress Note: 01/05/2020 Subjective: Patient is doing better. Swelling has been subsided. Yesterday, patient was diuresed w akhil. Objective: Vital Signs: Blood pressure 153/62, pulse of 72. Patient had urine output of 1450. Neg ative of 600. As weight wadsworth, patient down to 134, loss 6 pounds from yesterday. Chest: Clear to auscultation. Heart: S1, S2. Regular. Systolic murmur. Abdomen: Soft, nontender. Extremities: Plus edema. Laboratory Data: H and H 10.2/32.2. Sodium 142, potassium 4, bicarb 27, BUN 46, creatinine 1.5, batsheva nding down. Uric acid 10.1. Calcium 9, phosphorus 3.8, magnesium 2.2. Iron saturation 8.4, ferriti n 53. PTH 192. TSH 0.7. Vitamin D still pending. Serum protein electrophoresis is still pending. Current Medications: The patient on include: 1.Lovenox. 2.Plavix. 3.Aspirin. 4.Avapro. 5.Metoprolol. 6.Lasix 40 IV b.i.d. 7.Breathing treatment. 8.Carafate. 9.Zofran. 10.Solu-Medrol. Assessment And Plan: 1.Acute kidney injury on chronic kidney disease, back to baseline with over volume, peripheral edema without any respiratory distress. I am going to go ahead and switch the patient to oral Lasix 40 b. i.d. and we will follow up. 2.Hypertension, controlled. Continue current medication. 3.Proteinuria with the presence of anemia. Serum protein electrophoresis is still pending. 4.Iron-deficiency anemia. We will start the patient on IV iron. Patient cleared from the renal sta ndpoint for discharge planning, to follow up in the office in 2 to 3 weeks. DOMINIQUE/FRANCOISE Voice ID: [id number] Report ID: [id number]
[2020-01-05] MEDS ORDERED: FUROSEMIDE 40 MG TABLET PO SCH (17:00)
--- NOTE | 2020-01-05 17:13 | PN ---
Date of Progress Note: 01/05/2020 Subjective: Ms. Finney was admitted for congestive heart failure, short runs of ventricular tachycar ho, has a known ejection fraction of 49% with mild coronary artery disease. She has diabetes, hyper tension, dyslipidemia. Overnight, she has no complaint, no further ventricular tachycardia. She is in sinus rhythm, afebrile. Objective: Chest: Clear. Abdomen: Benign. Cardiac: Revealed a regular rhythm and rate with an S4 gallop. Extremities: She has no edema. Assessment/plan: She is on appropriate therapy including beta blockers and diuretic. Echocardiogram will be done today, and we will see what that shows, but I can see Ms. Finney going home today and I will see her in the office as an outpatient. AMY/FRANCOISE Voice ID: [id number] Report ID: [id number]
--- NOTE | 2020-01-06 08:52 | ECHO ---
HEIGHT: 5 ft 3 in WEIGHT: 134 lb 0 oz DATE OF STUDY: 01/05/[address]: Lukas Robles MD 2-DIMENSIONAL: YES M.MODE: YES DOPPLER: YES COLOR FLOW: YES TDS: NO PORTABLE: NO DEFINITY: NO BUBBLE STUDY: NO DIAGNOSIS: CONGESTIVE HEART FAILURE CARDIAC HISTORY: CATHERIZATION: NO SURGERY: NO PROSTHETIC VALVE: NO PACEMAKER: NO MEASUREMENTS (cm) DIASTOLIC (NORMALS) SYSTOLIC (NORMALS) IVSd 0.9 (0.6-1.2) LA Diam 4.4 (1.9-4.0) LVEF 35% LVIDd 5.3 (3.5-5.7) LVIDs 4.4 (2.0-3.5) %FS 17% LVPWd 0.9 (0.6-1.2) Ao Diam 2.4 (2.0-3.7) 2 DIMENSIONAL ASSESSMENT: RIGHT ATRIUM: NORMAL LEFT ATRIUM: DILATED RIGHT VENTRICLE: NORMAL LEFT VENTRICLE: NORMAL SIZE TRICUSPID VALVE: NORMAL MITRAL VALVE: MITRAL ANNULAR CALCIFICATION PULMONIC VALVE: NORMAL AORTIC VALVE: SCLEROSIS PERICARDIAL EFFUSION: NONE AORTIC ROOT: NORMAL LEFT VENTRICULAR WALL MOTION: SEVERE GLOBAL HYPOKINESIS. DOPPLER/COLOR FLOW: MILD MITRAL, AORTIC AND TRICUSPID REGURGITATION. COMMENTS: SEVERE GLOBAL HYPOKINESIS. LEFT VENTRICULAR EJECTION FRACTION 35%. LEFT ATRIAL ENLARGEMENT. MILD MITRAL, AORTIC AND TRICUSPID REGURGITATION. AORTIC SCLEROSIS. MITRAL ANNULAR CALCIFICATION. TECHNOLOGIST: Jason MTZ
--- NOTE | 2020-01-06 09:57 | EKG ---
Test Date: 2020-01-04 Test Time: 15:38:08 Corporate Wellness Coordinator: ANTHONY MEASUREMENT RESULTS: Intervals: Rate: 102 UT: 142 QRSD: 136 QT: 390 QTc: 508 [place]: P: 43 UT: 142 QRS: -22 T: 142 INTERPRETIVE STATEMENTS: Sinus tachycardia with premature supraventricular complexes with occasional and consecutive premature ventricular complexes Left bundle branch block Abnormal ECG Compared to ECG 01/04/2020 15:37:33 Sinus rhythm no longer present Electronically Signed On 01-06-20 09:54:29 CDT by Loyd tSoddard
--- NOTE | 2020-01-06 09:57 | EKG ---
Test Date: 2020-01-04 Test Time: 15:37:33 Sharepoint Manager: ANTHONY MEASUREMENT RESULTS: Intervals: Rate: 104 WV: 146 QRSD: 138 QT: 386 QTc: 507 [place]: P: 66 WV: 146 QRS: -22 T: 142 INTERPRETIVE STATEMENTS: Sinus rhythm with premature supraventricular complexes with occasional and consecutive premature ventricular complexes...may be vt or afib with aberrancy Left bundle branch block Abnormal ECG Compared to ECG 01/03/2020 17:34:16 Atrial premature complex(es) now present Electronically Signed On 01-06-20 09:55:23 CDT by Loyd Stoddard
--- NOTE | 2020-01-06 09:57 | EKG ---
Test Date: 2020-01-04 Test Time: 15:39:25 Radiology Supervisor: ANTHONY MEASUREMENT RESULTS: Intervals: Rate: 88 FL: 142 QRSD: 136 QT: 384 QTc: 464 [place]: P: 64 FL: 142 QRS: -22 T: 141 INTERPRETIVE STATEMENTS: Sinus rhythm with premature atrial complexes Left bundle branch block Abnormal ECG Compared to ECG 01/04/2020 15:38:08 Sinus tachycardia no longer present Ventricular premature complex(es) no longer present Electronically Signed On 01-06-20 09:54:14 CDT by Loyd Stoddard
[2020-01-07 03:27] VITALS: BP 143/59; TEMP 98.5
--- NOTE | 2020-01-07 03:32 | P.DS ---
Discharge Date: 01/05/20 Disposition: ROUTINE DISCHARGE Discharge Condition: GOOD Reason for Admission: Shortness of breath - Problems (1) Acute exacerbation of CHF (congestive heart failure) Status: Acute (2) Acute kidney injury Status: Acute (3) COPD exacerbation Onset Date: 09/25/15 Status: Acute (4) Diastolic CHF Status: Chronic Brief History of Present Illness: Patient is an 84yo who was admitted to the hospital with difficulty breathing. Patient has a history of hypertension and type 2 diabetes. Patient has been feeling worse over the last few days and she finally decided to come into the emergency room for further evaluation. Patient has a history of COPD and is on home oxygen as well. She takes and nebulizer treatments regularly. In the emergency room she was tachypneic and hypoxic. Her chest x-ray revealed CHF exacerbation. Decision was made to admit the patient to the hospital for further evaluation. Hospital Course: Patient's respiratory status is improved. Patient is breathing much better and working with physical therapy. We will arrange for outpatient home health to continue with physical therapy and nursing care. Will also need close follow with Cardiology and continue with diuresing with Lasix at discharge. At this time, patient is stable for discharge with outpatient follow-up. Follow-up with Nephrology and monitor labs in 1 week. Patient is ejection fraction of 35% with global hypokinesis. Planning discharge home with outpatient follow-up with home health as well. Vital Signs/Physical Exam: Temp Pulse Resp BP Pulse Ox 98.5 F 75 16 143/59 H 98 01/07/20 03:26 01/07/20 03:26 01/07/20 03:26 01/07/20 03:26 01/07/20 03:26 General: Alert, In no apparent distress, Oriented x3 Laboratory Data at Discharge: WBC 5.3 K/uL (4.3-10.9) 01/04/20 05:56 Hgb 10.2 g/dL (12.0-15.0) L 01/04/20 05:56 Hct 32.2 % (36.0-45.0) L 01/04/20 05:56 Plt Count 189 K/uL (152-406) 01/04/20 05:56 PT 13.6 SECONDS (9.5-12.5) H 01/03/20 16:55 INR 1.16 01/03/20 16:55 Sodium 142 mmol/L (136-145) 01/05/20 05:29 Potassium 4.0 mmol/L (3.5-5.1) 01/05/20 05:29 BUN 46 mg/dL (7-18) H 01/05/20 05:29 Creatinine 1.55 mg/dL (0.55-1.3) H 01/05/20 05:29 Glucose 120 mg/dL (74-106) H 01/05/20 05:29 Uric Acid 10.1 mg/dL (2.6-6.0) H 01/05/20 05:29 Phosphorus 3.8 mg/dL (2.5-4.9) 01/05/20 05:29 Magnesium 2.2 mg/dL (1.8-2.4) 01/05/20 05:29 Total Bilirubin 0.6 mg/dL (0.2-1.0) 01/04/20 05:56 AST 24 U/L (15-37) 01/04/20 05:56 ALT 46 U/L (12-78) 01/04/20 05:56 Alkaline Phosphatase 123 U/L (45-117) H 01/04/20 05:56 Home Medications: Albuterol Inhaler [Ventolin Inhaler*] 2 puff IH Q4HP PRN 01/04/20 Atorvastatin Calcium 20 mg PO DAILY 01/04/20 Clopidogrel Bisulfate [Plavix*] 75 mg PO DAILY 01/04/20 Etanercept [Enbrel] mg SQ EVERY 7TH DAY 01/04/20 Fluticasone/Umeclidin/Vilanter [Trelegy Ellipta 100-62.5-25] 1 dose IH BID 01/04/20 Furosemide [Lasix*] 40 mg PO DAILY 01/04/20 Irbesartan 300 mg PO DAILY 01/04/20 Metoprolol Tartrate 100 mg PO BID 01/04/20 Sucralfate [Carafate*] 1 gm PO BID 01/04/20 predniSONE [Deltasone*] 10 mg PO BID 01/04/20 Cyanocobalamin/Cobamamide [Vitamin B-12 5,000 Mcg Tab Sl] 1 each SL DAILY #30 tab.subl 01/07/20 New Medications: Cyanocobalamin/Cobamamide [Vitamin B-12 5,000 Mcg Tab Sl] 1 each SL DAILY #30 tab.subl Patient Discharge Instructions: OK TO DC IV AND DC HOME. FOLLOW-UP WITH PRIMARY CARE PROVIDER IN 1-2 WEEKS. FOLLOW-UP WITH CARDIOLOGY IN 1-2 WEEKS. RETURN TO THE ER IF symptoms worsen. CALL or TEXT DR. FORRESTER AT [phone] IF ANY QUESTIONS REGARDING HOSPITAL STAY. PLEASE CALL THE FLOOR AT [phone] IF ANY MEDICATION OR NURSING QUESTIONS. Diet: Low sodium Activity: Fall precautions Time spent managing pt's care (in minutes): 20
[2020-01-09 12:38] LABS: Vitamin D 1,25-Dihydroxy Total 57 pg/mL (18-72); Vitamin D,1,25-OH2, D2 <8 pg/mL
[2020-01-11 16:03] LABS: Hepatitis C Virus RNA (PCR)log <1.18 log IU/mL
[2020-01-12 16:31] LABS: Albumin, (SPE) 3.1 g/dL (3.8-4.8); Alpha-1-Globulins 0.3 g/dL (0.2-0.3); Alpha-2-Globulins 0.7 g/dL (0.5-0.9); Gamma Globulins 0.7 g/dL (0.8-1.7); INTERPRETATION REPORT
[2020-01-12 18:30] LABS: HBsAG Nonreactive (Nonreactive)
== END 2020-01-05 15:00 | disposition home or self-care (01) | DRG 291 ==
LOC: ER 15:31 → ERHOLD 19:28 → OBSVTOIN 19:28 → INTOOBSV 19:28 → 4TH 22:25 → OBSVTOIN 01-04 17:39
PROVIDERS: ADMIT Hospitalist; ATTEND Hospitalist
DX: I13.0 Hypertensive heart and chronic kidney disease with heart failure and stage 1 through stage 4 chronic kidney disease, or unspecified chronic kidney disease (principal); I50.33 Acute on chronic diastolic (congestive) heart failure; N17.9 Acute kidney failure, unspecified; J44.1 Chronic obstructive pulmonary disease with (acute) exacerbation; I47.2 Ventricular tachycardia; E11.40 Type 2 diabetes mellitus with diabetic neuropathy, unspecified; E78.5 Hyperlipidemia, unspecified; E11.22 Type 2 diabetes mellitus with diabetic chronic kidney disease; Z99.81 Dependence on supplemental oxygen; Z88.5 Allergy status to narcotic agent; Z79.02 Long term (current) use of antithrombotics/antiplatelets; Z79.52 Long term (current) use of systemic steroids; Z96.651 Presence of right artificial knee joint; Z90.49 Acquired absence of other specified parts of digestive tract; Z90.710 Acquired absence of both cervix and uterus; Z79.899 Other long term (current) drug therapy; N18.3 Chronic kidney disease, stage 3 (moderate); I25.10 Atherosclerotic heart disease of native coronary artery without angina pectoris; M06.9 Rheumatoid arthritis, unspecified; K21.9 Gastro-esophageal reflux disease without esophagitis; D50.9 Iron deficiency anemia, unspecified; R80.9 Proteinuria, unspecified
CPT/HCPCS: 36415; 71045; 76770; 80048; 80053; 80069; 80076; 81003; 82550; 82570; 82607; 82652; 82728; 82746; 83520; 83540; 83735; 83880; 83970; 84100; 84156; 84165; 84443; 84466; 84484; 84550; 85025; 85044; 85610; 86021; 86038; 86160; 86225; 86317; 86430; 86704; 86706; 87340; 87522; 93005; 93306; 93970; 96365; 96366; 96375; 99285; G0378; J1650; J1940; J2916; J2920; J3475; J7030; J7512

== ENCOUNTER 2020-01-18 11:01 | Inpatient (IN) | payer OTHER ==
[2020-01-18 13:25] LABS: Protime INR 1.26
[2020-01-18 13:26] LABS: Absolute Lymphocytes (CBC) 1.1 K/uL (0.7-4.9); Basophils % 0.5 % (0-1.3); Hematocrit 33.6 % (36.0-45.0); Lymphocytes % 14.1 % (15.3-44.8); MPV 9.4 fL (7.6-11.3); RBC Red Blood Cell Count 3.75 M/uL (3.86-4.86)
[2020-01-18 13:35] LABS: Albumin 3.3 g/dL (3.4-5.0); Bilirubin Direct 0.3 mg/dL (0-0.2); Magnesium 2.3 mg/dL (1.8-2.4); Potassium 4.5 mmol/L (3.5-5.1); Protein, Total 6.6 g/dL (6.4-8.2); Troponin (Emerg Dept Use Only) 0.04 ng/mL (0.0-0.045)
--- OUTSIDE RECORDS SUMMARY | 2020-01-18 13:43 | XMS REPORT | Continuity of Care Document ---
:1935 Author Organization [facility] t Address [address] [place] [address] Care Team Providers Name Role Phone Tirso MONSALVE, L Attending Clinician Doctor Unassigned, Name Attending Clinician [...] Department ID 2019-09-24 2019-09-24 Office AMINA Chahal [id number] 09:21:56 09:59:10 Visit [facility] [id number] Surgical [id number] Special [id number] [address] [place] 2019-09-23 2019-09-23 Orders Doctor SALVATORE [id number] 00:00:00 00:00:00 Only UnassignedJON [id number] [place] [facility] [id number] Results This patient has no known results.
--- NOTE | 2020-01-18 13:46 | RAD REPORT ---
EXAM DESCRIPTION: RAD - Chest Single View - 01/18/2020 1:36 pm CLINICAL HISTORY: SOB Chest pain. COMPARISON: Chest Single View dated 01/03/2020; Chest Single View dated 09/14/2019; Chest Single View d ated 08/10/2019; Chest Single View dated 06/17/2018 FINDINGS: Portable technique limits examination quality. Mild bilateral pulmonary edema is seen. Trace pleural effusions. The heart is moderately enlarged wit h a tortuous thoracic aorta. Advanced degenerative change right shoulder. IMPRESSION: Mild CHF versus volume overload pattern.
--- NOTE | 2020-01-18 14:12 | EDPHYS ---
Physician Documentation [facility] Name: Nishant Finney Age: 84 yrs Sex: Female : 1935 Arrival Date: 01/18/2020 Time: 11:05 Bed 13 Private MD: ED Physician Reagan Sharpe HPI: 01/17 13:10 This 84 yrs old Black Female presents to ER via Wheelchair with complaints of Breathing jmm Difficulty. 13:10 The patient has shortness of breath at rest. Onset: The symptoms/episode began/occurred jmm gradually, 2 month(s) ago. Duration: The symptoms are continuous, and are steadily getting worse. The patient's shortness of breath is aggravated by nothing, is alleviated by nothing. Associated signs and symptoms: Pertinent negatives: fever. This is an 84 year old female with a history of dm, hlp, htn, ra that presents to the ED with complaints of worsening shortness of breath over the past 2 months. Denies chest pain. Historical: - Allergies: 12:49 Codeine; sv - Home Meds: 12:49 clopidogrel 75 mg Oral tab 1 tab once daily [Active]; Symbicort inhalation inhalation sv [Active]; metoprolol tartrate 100 mg Oral tab 1 tab once daily [Active]; sucralfate 1 gram Oral tab 1 tab 2 times per day [Active]; Lasix 40 mg Oral tab 1 tab once daily [Active]; prednisone 10 mg Oral tab 1 tab 2 times per day [Active]; irbesartan 300 mg Oral tab 1 tab once daily [Active]; atorvastatin 20 mg Oral tab 1 tab once daily [Active]; - PMHx: 12:49 Diabetes - NIDDM; Hyperlipidemia; Hypertension; Rheumatoid Arthritis; sv - Immunization history:: Adult Immunizations up to date. - Social history:: Smoking status: Patient denies any tobacco usage or history of. ROS: 13:10 Constitutional: Negative for fever, chills, and weight loss, Cardiovascular: Negative jmm for chest pain, palpitations, and edema. 13:10 Respiratory: Positive for shortness of breath. 13:10 All other systems are negative. Exam: 13:10 Constitutional: This is a well developed, well nourished patient who is awake, alert, jmm and in no acute distress. Head/Face: atraumatic. Eyes: EOMI, no conjunctival erythema appreciated ENT: Moist Mucus Membranes Neck: Trachea midline, Supple Chest/axilla: Normal chest wall appearance and motion. 13:10 Abdomen/GI: Non distended, soft Back: Normal ROM Skin: General appearance color normal MS/ Extremity: Moves all extremities, no obvious deformities appreciated, no edema noted to the lower extremities Psych: Behavior is normal, Mood is normal, Patient is cooperative and pleasant 13:10 Cardiovascular: Rate: normal, Rhythm: regular. 13:10 Respiratory: the patient does not display signs of respiratory distress, Respirations: normal, Breath sounds: rales, that are moderate, are scattered. Vital Signs: 11:27 BP 147 / 55; Pulse 61; Resp 16; Temp 98.2; Pulse Ox 96% on R/A; Pain 0/10; hb 12:49 BP 169 / 69; Pulse 70; Resp 30; Pulse Ox 99% on R/A; sv 13:51 BP 176 / 74; Pulse 72; Resp 16; Pulse Ox 99% ; hb 14:45 BP 184 / 67; Pulse 66; Resp 18; Temp 98.2(TE); Pulse Ox 99% on R/A; mh5 MDM: 12:47 Patient medically screened. noam 14:10 Data reviewed: vital signs, nurses notes. Counseling: I had a detailed discussion with kurt the patient and/or guardian regarding: the historical points, exam findings, and any diagnostic results supporting the discharge/admit diagnosis, lab results, radiology results, the need for further work-up and treatment in the hospital. ED course: I discussed the patient with MONROE [facility] whom accepted the patient for Dr. Herrmann. . 01/17 12:37 Order name: Basic Metabolic Panel; Complete Time: 13:39 [facility] 01/17 12:37 Order name: CBC with Diff; Complete Time: 13:31 [facility] 01/17 12:37 Order name: LFT's; Complete Time: 13:39 [facility] 01/17 12:37 Order name: Magnesium; Complete Time: 13:39 [facility] 01/17 12:37 Order name: NT PRO-BNP; Complete Time: 13:39 [facility] 01/17 12:37 Order name: PT-INR; Complete Time: 13:31 [facility] 01/17 12:37 Order name: Troponin (emerg Dept Use Only); Complete Time: 13:39 [facility] 01/17 12:37 Order name: XRAY Chest (1 view); Complete Time: 14:01 [facility] 01/17 12:37 Order name: EKG; Complete Time: 12:38 [facility] 01/17 12:37 Order name: Cardiac monitoring; Complete Time: 12:46 [facility] 01/17 12:37 Order name: EKG - Nurse/Tech; Complete Time: 12:46 [facility] 01/17 12:37 Order name: IV Saline Lock; Complete Time: 13:52 [facility] 01/17 12:37 Order name: Labs collected and sent; Complete Time: 13:52 [facility] 01/17 12:37 Order name: O2 Per Protocol; Complete Time: 12:46 [facility] 01/17 12:37 Order name: O2 Sat Monitoring; Complete Time: 12:46 jm Administered Medications: 14:55 Drug: Lasix 20 mg Route: IVP; Site: right forearm; hb 15:42 Follow up: Response: No adverse reaction sv 14:55 Drug: Lasix 20 mg Route: IVP; Site: right forearm; hb 15:42 Follow up: Response: No adverse reaction sv Disposition: 15:43 Co-signature as Attending Physician, Reagan Sharpe MD I agree with the assessment and noam plan of care. Disposition: 01/18/20 14:12 Hospitalization ordered by Adam Herrmann for Inpatient Admission. Preliminary diagnosis is Acute on chronic combined systolic (congestive) and diastolic (congestive) heart failure. - Bed requested for Telemetry/MedSurg (Inpatient). - Status is Inpatient Admission. sv - Condition is Stable. - Problem is an acute exacerbation. - Symptoms are unchanged. Signatures: Dispatcher GabeHost Stephanie Galarza RN Reagan Thurston MD MD cha Mickail, Joel, PA PA Vimal Mancera, MEAT DRESSER-C MEAT DRESSER-Cla1 Trinh Al, LIAS RN Latisha Garcia Corrections: (The following items were deleted from the chart) 15:22 14:12 Hospitalization Ordered by Adam Herrmann DO for Inpatient Admission. Preliminary eb diagnosis is Acute on chronic combined systolic (congestive) and diastolic (congestive) heart failure. Bed requested for Telemetry/MedSurg (Inpatient). Status is Inpatient Admission. Condition is Stable. Problem is an acute exacerbation. Symptoms are unchanged. jmm 15:25 15:22 01/18/2020 14:12 Hospitalization Ordered by Adam Herrmann DO for Inpatient sv Admission. Preliminary diagnosis is Acute on chronic combined systolic (congestive) and diastolic (congestive) heart failure. Bed requested for Telemetry/MedSurg (Inpatient). Status is Inpatient Admission. Condition is Stable. Problem is an acute exacerbation. Symptoms are unchanged. eb 15:41 15:25 01/18/2020 14:12 Hospitalization Ordered by Adam Herrmann DO for Inpatient sv Admission. Preliminary diagnosis is Acute on chronic combined systolic (congestive) and diastolic (congestive) heart failure. Bed requested for Telemetry/MedSurg (Inpatient). Status is Inpatient Admission. Condition is Stable. Problem is an acute exacerbation. Symptoms are unchanged. sv
--- NOTE | 2020-01-18 14:12 | ER ---
Nurse's Notes [facility] Name: Nishant Finney Age: 84 yrs Sex: Female : 1935 Arrival Date: 01/18/2020 Time: 11:05 Bed 13 Private MD: Diagnosis: Acute on chronic combined systolic (congestive) and diastolic (congestive) heart failure Presentation: 01/17 11:27 Chief complaint: SOB x 2 months, worse at night. Daughter reports she can't sleep and hb she is due for a heart cath, does not feel like she is safe at night due to breathing difficulty. Coronavirus screen: Proceed with normal triage. Ebola Screen: No symptoms or risks identified at this time. Initial Sepsis Screen: Does the patient meet any 2 criteria? No. Patient's initial sepsis screen is negative. Risk Assessment: Do you want to hurt yourself or someone else? Patient reports no desire to harm self or others. Onset of symptoms was December 2019. 11:27 Method Of Arrival: Wheelchair hb 11:27 Acuity: JONO 3 hb 12:50 Initial Sepsis Screen: Does the patient have a suspected source of infection? No. sv Patient's initial sepsis screen is negative. Historical: - Allergies: 12:49 Codeine; sv - Home Meds: 12:49 clopidogrel 75 mg Oral tab 1 tab once daily [Active]; Symbicort inhalation inhalation sv [Active]; metoprolol tartrate 100 mg Oral tab 1 tab once daily [Active]; sucralfate 1 gram Oral tab 1 tab 2 times per day [Active]; Lasix 40 mg Oral tab 1 tab once daily [Active]; prednisone 10 mg Oral tab 1 tab 2 times per day [Active]; irbesartan 300 mg Oral tab 1 tab once daily [Active]; atorvastatin 20 mg Oral tab 1 tab once daily [Active]; - PMHx: 12:49 Diabetes - NIDDM; Hyperlipidemia; Hypertension; Rheumatoid Arthritis; sv - Immunization history:: Adult Immunizations up to date. - Social history:: Smoking status: Patient denies any tobacco usage or history of. Screenin:49 Abuse screen: Denies threats or abuse. Denies injuries from another. Nutritional sv screening: No deficits noted. Tuberculosis screening: No symptoms or risk factors identified. Fall Risk None identified. Assessment: 12:40 General: Appears in no apparent distress. comfortable, well developed, Behavior is sv calm, cooperative, appropriate for age. Pain: Denies pain. Neuro: Level of Consciousness is awake, alert, obeys commands, Oriented to person, place, time, situation, Moves all extremities. Full function Gait is steady. Cardiovascular: Patient's skin is warm and dry. Rhythm is sinus rhythm. Respiratory: Reports shortness of breath at night for about 2 months Airway is patent Respiratory effort is even, unlabored, Respiratory pattern is symmetrical, tachypnea. Derm: Skin is intact, Skin is pink, warm \T\ dry. 14:30 Reassessment: Patient appears in no apparent distress at this time. No changes from sv previously documented assessment. Patient and/or family updated on plan of care and expected duration. Pain level reassessed. Patient is alert, oriented x 3, equal unlabored respirations, skin warm/dry/pink. 15:24 Reassessment: Attempted to call report, nurse to call back. sv 15:37 Reassessment: Patient appears in no apparent distress at this time. No changes from sv previously documented assessment. Patient and/or family updated on plan of care and expected duration. Pain level reassessed. Patient is alert, oriented x 3, equal unlabored respirations, skin warm/dry/pink. Vital Signs: 11:27 BP 147 / 55; Pulse 61; Resp 16; Temp 98.2; Pulse Ox 96% on R/A; Pain 0/10; hb 12:49 BP 169 / 69; Pulse 70; Resp 30; Pulse Ox 99% on R/A; sv 13:51 BP 176 / 74; Pulse 72; Resp 16; Pulse Ox 99% ; hb 14:45 BP 184 / 67; Pulse 66; Resp 18; Temp 98.2(TE); Pulse Ox 99% on R/A; mh5 ED Course: 11:05 Patient arrived in ED. fj1 11:28 Triage completed. hb 12:31 Stephanie Fountain, LISA is Primary Nurse. sv 12:36 Parth Barkley PA is PHCP. jmm 12:36 Reagan Sharpe MD is Attending Physician. jmm 12:40 Arm band placed on. sv 12:40 Missed attempt(s): 20 gauge in right forearm. Bleeding controlled, band aid applied, sv catheter tip intact. 12:45 Patient has correct armband on for positive identification. Placed in gown. Bed in low sv position. Call light in reach. Side rails up X 1. Adult w/ patient. surveillance monitor on. Pulse ox on. NIBP on. Door closed. Head of bed elevated. 12:45 Inserted saline lock: 22 gauge in right forearm, using aseptic technique. Blood sv collected. Flushed right forearm with 5 ml normal saline. 13:04 EKG done, by application technical designer. reviewed by Parth ROCHE. at1 13:37 XRAY Chest (1 view) In Process Unspecified. EDMS 14:11 Adam Herrmann DO is Hospitalizing Provider. jmm 15:36 No provider procedures requiring assistance completed. sv 15:37 Patient admitted, IV remains in place. intact. sv Administered Medications: 14:55 Drug: Lasix 20 mg Route: IVP; Site: right forearm; hb 15:42 Follow up: Response: No adverse reaction sv 14:55 Drug: Lasix 20 mg Route: IVP; Site: right forearm; hb 15:42 Follow up: Response: No adverse reaction sv Outcome: 14:12 Decision to Hospitalize by Provider. m 15:37 Admitted to Tele accompanied by tech, via wheelchair, room 218, with chart, Report sv called to Jaquelin GONZALEZ 15:37 Condition: stable 15:37 Instructed on the need for admit. 15:41 Patient left the ED. sv Signatures: Dispatcher [employer] EDStephanie Torres RN RN Parth Blakely PA PA Any Barragan, vascular physician EKG [facility] Trinh Al RN RN hb Martinez, Maria [facility] Corrections: (The following items were deleted from the chart) 14:48 14:45 BP 184 / 67; Pulse 66bpm; Resp 18bpm; Pulse Ox 99% RA; [facility]5 15:41 12:40 Cardiovascular: Patient's skin is warm and dry. sv sv
[2020-01-18] MEDS ORDERED: FUROSEMIDE 20 MG/ 2ML VIAL ONE (14:40)
[2020-01-18] MEDS ORDERED: FUROSEMIDE 40 MG/4 ML VIAL ONE (14:57)
--- NOTE | 2020-01-18 15:11 | P.HP ---
Certification for Inpatient Patient admitted to: Observation With expected LOS: >2 Midnights Patient will require the following post-hospital care: None Practitioner: I am a practitioner with admitting privileges, knowledge of patient current condition, hospital course, and medical plan of care. Services: Services provided to patient in accordance with Admission requirements found in Title 42 Section 412.3 of the Code of Federal Regulations <Vimal Alvarado - Last Filed: 01/18/20 15:00> Patient admitted to: Observation <Adam Herrmann - Last Filed: 01/18/20 15:58> Patient History Date of Service: 01/18/20 Primary Care Provider: Dr. Hernandez Reason for admission: CHF exacerbation History of Present Illness: 84-year-old female with history of CHF, hypertension, hyperlipidemia, diabetes mellitus, rheumatoid arthritis presented to the emergency department with a 2 months history of shortness of breath worsening in nature. Patient reports that she has a low difficulty at night and has not been sleeping these past few days. 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 During her evaluation in the emergency department patient was found to have mild to moderate volume overload. ED provider wishes to admit patient for further evaluation and management this condition. When I saw the patient in the emergency department she appeared comfortable, in no apparent distress. Patient did not require oxygen at this time. Patient will be admitted for further evaluation management. Home medications list reviewed: Yes - Past Medical/Surgical History Diabetic: Yes -: Rheumatoid Arthritis -: HTN -: NIDDM -: Asthma -: CEREBROVASCULAR DISEASE -: 2011 -: Diastolic dysfunction -: RIGHT TOTAL KNEE REPLACEMENT -: CHOLECYSTECTOMY -: ORIF RIGHT HIP -: HYSTERECTOMY Psychosocial/ Personal History: Patient is , lives at home alone but the daughter helps take care of her. - Family History Family History: Reviewed- Non-Contributory - Social History Smoking Status: Never smoker Alcohol use: No CD- Drugs: No Caffeine use: Yes Place of Residence: Home <Vimal Alvarado - Last Filed: 01/18/20 15:00> Date of Service: 01/18/20 History of Present Illness: Patient seen and examined. Agree with evaluation and assessment. Patient with shortness of breath likely related to acute on chronic systolic CHF. Patient recently hospitalized. Patient also recently saw Cardiology for CAD evaluation. It appears patient had cardiac stress test which was abnormal as the patient is scheduled for heart catheterization for this week. When I saw the patient she appeared stable. - Past Medical/Surgical History -: Systolic CHF EF 35% - Family History Family History: Reviewed- Non-Contributory <Adam Herrmann - Last Filed: 01/18/20 15:58> Allergies codeine [Codeine] Adverse Reaction (Mild, Verified 04/14/17 11:59) Nausea Home Medications: Albuterol Inhaler [Ventolin Inhaler*] 2 puff IH Q4HP PRN 01/04/20 Atorvastatin Calcium 20 mg PO DAILY 01/04/20 Clopidogrel Bisulfate [Plavix*] 75 mg PO DAILY 01/04/20 Etanercept [Enbrel] mg SQ EVERY 7TH DAY 01/04/20 Fluticasone/Umeclidin/Vilanter [Trelegy Ellipta 100-62.5-25] 1 dose IH BID 01/04/20 Furosemide [Lasix*] 40 mg PO DAILY 01/04/20 Irbesartan 300 mg PO DAILY 01/04/20 Metoprolol Tartrate 100 mg PO BID 01/04/20 Sucralfate [Carafate*] 1 gm PO BID 01/04/20 predniSONE [Deltasone*] 10 mg PO BID 01/04/20 Cyanocobalamin/Cobamamide [Vitamin B-12 5,000 Mcg Tab Sl] 1 each SL DAILY #30 tab.subl 01/07/20 Review of Systems General: Unremarkable Eyes: Unremarkable ENT: Unremarkable Respiratory: Shortness of Breath, As per HPI Cardiovascular: Orthopnea, Edema, As per HPI Gastrointestinal: Unremarkable Genitourinary: Unremarkable Musculoskeletal: Unremarkable Integumentary: Unremarkable Neurological: Unremarkable Lymphatics: Unremarkable <Vimal Alvarado - Last Filed: 01/18/20 15:00> Physical Examination - Physical Exam General: Alert, In no apparent distress, Oriented x3 HEENT: Atraumatic, Normocephalic Neck: Supple Respiratory: Diminished, Crackles/rales Cardiovascular: Edema (Pitting edema to bilateral lower extremities) Capillary refill: <2 Seconds Gastrointestinal: Normal bowel sounds, Soft and benign Musculoskeletal: No erythema, No tenderness, No warmth Integumentary: No rashes, No significant lesion, No erythema Neurological: Normal speech, Normal tone - Studies Laboratory Data (last 24 hrs) 01/18/20 13:00: PT 14.8 H, INR 1.26 01/18/20 13:00: WBC 7.5, Hgb 10.6 L, Hct 33.6 L, Plt Count 174 01/18/20 13:00: Sodium 145, Potassium 4.5, BUN 36 H, Creatinine 1.40 H, Glucose 87, Magnesium 2.3, Total Bilirubin 1.0, AST 25, ALT 47, Alkaline Phosphatase 123 H <Vimal Alvarado - Last Filed: 01/18/20 15:00> - Physical Exam Cardiovascular: Regular rate/rhythm Gastrointestinal: No masses, No rebound, No guarding Integumentary: Tenderness/swelling (Some pitting edema to the lower extremities bilateral) Neurological: Normal strength at 5/5 x4 extr, Normal affect - Studies Laboratory Data (last 24 hrs) 01/18/20 13:00: PT 14.8 H, INR 1.26 01/18/20 13:00: WBC 7.5, Hgb 10.6 L, Hct 33.6 L, Plt Count 174 01/18/20 13:00: Sodium 145, Potassium 4.5, BUN 36 H, Creatinine 1.40 H, Glucose 87, Magnesium 2.3, Total Bilirubin 1.0, AST 25, ALT 47, Alkaline Phosphatase 123 H <Adam Herrmann - Last Filed: 01/18/20 15:58> Assessment and Plan - Plan Assessment Acute on chronic systolic heart failure Stage III chronic kidney disease Hypertension Hyperlipidemia Diabetes mellitus type 2 Asthma Rheumatoid arthritis GERD Plan Acute on chronic systolic heart failure: Will increase patient's Lasix to 40 mg IV b.i.d., cardiology has been consulted on this case, anticipate patient will likely have heart catheterization during the course of this hospitalization. Will maintain 1.5 L fluid restriction and daily weights. Anticipate clinical improvement next 24-48 hr. DVT prophylaxis with heparin. Stage III chronic kidney disease: Nephrology has been consulted on this case. Will await further input and management of chronic kidney disease and adjustment of diuretic therapy. Hypertension: Will continue patient's home medications and adjust as needed. Hyperlipidemia: Will continue patient's home medication and adjust as needed. Diabetes mellitus type 2: Will obtain a.c. HS Accu-Cheks and place patient on s liding scale insulin therapy. Asthma: Will obtain and continue patient's home medications. Rheumatoid arthritis: Will obtain and continue patient's home medications. GERD: Will obtain and continue patient's home medications, will provide PPI therapy during this hospitalization. Discharge Plan: Home Plan to discharge in: 72 Hours - Advance Directives Does patient have a Living Will: Yes Does patient have a Durable POA for Healthcare: Yes - Code Status/Comfort Care Code Status Assessed: Yes (Patient is full code) Critical Care: No Time Spent Managing Pts Care (In Minutes): 55 <Viaml Alvarado - Last Filed: 01/18/20 15:00> - Plan Patient seen and examined. Agree with evaluation, assessment and plan of care of nurse practitioner. Case discussed in detail with him. Continue with diuresis. Continue with education on fluid restriction. Will discuss further with cardiology. Patient with recent abnormal cardiac stress test. Patient to have heart catheterization. Will see if this can be done while she is hospitalized. Will also consult nephrology to address her chronic kidney disease. Continue home medications. Anticipate improvement over the next 24-48 hr. Advanced care planning address in detail. Patient declined home health and physical therapy on prior hospitalization and again today. Will continue to reassess again tomorrow. Patient may benefit with home health. <Adam Herrmann - Last Filed: 01/18/20 15:58>
[2020-01-18 16:09] VITALS: BMI 25.3
[2020-01-18] MEDS ORDERED: GLUCAGON 1 MG/VIAL IM PRN (16:09)
[2020-01-18] MEDS ORDERED: D50W 25 GM/50 ML SYRINGE/VIAL IV PRN (16:09)
[2020-01-18] MEDS ORDERED: ACETAMINOPHEN 500 MG TAB PO PRN (16:09)
[2020-01-18] MEDS ORDERED: ONDANSETRON 4 MG/2 ML VIAL IV PRN (16:09)
[2020-01-18] MEDS: INSULIN -REGULAR HUMAN 50 UNIT/0.5 ML ML SQ SCH ×2 (16:30→21:00)
[2020-01-18] MEDS ORDERED: FUROSEMIDE 40 MG/4 ML VIAL IV SCH (17:00)
[2020-01-18] MEDS: carvediloL 12.5 MG TAB PO SCH (17:42)
[2020-01-18] MEDS: SACUBITRIL/VALSARTAN 24/26 MG TAB PO SCH (19:52)
[2020-01-18] MEDS: HEPARIN 5000 UNIT/ML 1 ML VIAL SQ SCH (19:52)
[2020-01-18] MEDS: ATORVASTATIN 20 MG TAB PO SCH (19:52)
[2020-01-18] MEDS: SUCRALFATE 1 GM TABLET PO SCH (19:52)
[2020-01-18] MEDS ORDERED: TEMAZEPAM 15 MG CAP PO PRN (23:00)
[2020-01-19 04:13] LABS: Absolute Lymphocytes (CBC) 1.3 K/uL (0.7-4.9); Basophils % 0.3 % (0-1.3); Hematocrit 32.2 % (36.0-45.0); Lymphocytes % 24.1 % (15.3-44.8); MPV 9.7 fL (7.6-11.3)
[2020-01-19 04:26] LABS: Magnesium 2.1 mg/dL (1.8-2.4); Potassium 4.2 mmol/L (3.5-5.1)
[2020-01-19] MEDS: carvediloL 12.5 MG TAB PO SCH ×2 (05:10→17:27)
--- NOTE | 2020-01-19 06:26 | EKG ---
Test Date: 2020-01-18 Test Time: 12:48:44 Home Office Representative: BRI MEASUREMENT RESULTS: Intervals: Rate: 67 TN: 128 QRSD: 138 QT: 414 QTc: 437 [place]: P: 22 TN: 128 QRS: -21 T: 129 INTERPRETIVE STATEMENTS: Sinus rhythm with premature atrial complexes Left bundle branch block Abnormal ECG Compared to ECG 01/04/2020 15:39:25 No significant changes Electronically Signed On 01-19-20 06:24:30 CDT by Loyd Stoddard
[2020-01-19] MEDS: INSULIN -REGULAR HUMAN 50 UNIT/0.5 ML ML SQ SCH (07:30)
[2020-01-19] MEDS ORDERED: METOPROLOL TAR 50 MG TAB PO SCH (09:00)
[2020-01-19] MEDS ORDERED: FUROSEMIDE 20 MG/ 2ML VIAL IV SCH (09:00)
[2020-01-19] MEDS ORDERED: IRBESARTAN 150 MG TAB PO SCH (09:00)
[2020-01-19] MEDS: SACUBITRIL/VALSARTAN 24/26 MG TAB PO SCH ×2 (09:10→22:16)
[2020-01-19] MEDS: SUCRALFATE 1 GM TABLET PO SCH ×2 (09:10→22:15)
[2020-01-19] MEDS: CLOPIDOGREL 75 MG TABLET PO SCH (09:10)
[2020-01-19] MEDS: HEPARIN 5000 UNIT/ML 1 ML VIAL SQ SCH ×2 (09:11→22:15)
[2020-01-19] MEDS ORDERED: FUROSEMIDE 40 MG/4 ML VIAL IV ONE (09:47)
[2020-01-19] MEDS ORDERED: SOD FERRIC GLUC COMPLX/SUCROSE 250 MG in NA CHLORIDE 0.9% 250 ML IV SCH (11:00)
[2020-01-19] MEDS: NITROGLYCERIN 0.4 MG/HR (10 MG) PATCH TD SCH (11:00)
--- NOTE | 2020-01-19 12:35 | CON ---
Date of Consultation: 01/19/2020 Reason For Consultation: Edema, congestive heart failure, CHF exacerbation, elevation in BUN and cre atinine, fluid management. History Of Present Illness: This is a pleasant 84-year-old female, well known to me from the office with significant past medical history of diabetes complicated with neuropathy, hypertension, rheumato id arthritis, congestive heart failure with ejection fraction of 35%, chronic kidney disease, baselin e creatinine 1.2 to 1.3, GFR 40-45. Patient recently admitted to the hospital with CHF exacerbation, anasarca. Patient was diuresed, optimized her diuresis, and discharge workup in the hospital found to have iron-deficiency anemia and CHF exacerbation as I mentioned. With diuresis, the patient felt better. Apparently, patient came back complaining of shortness of breath and increase in her leg swe lling, found to have CHF exacerbation. For that reason, patient was admitted. Patient upon arrival to the hospital, BNP was 33,000. Upon discharge last time, BNP was down to 18,000. Her creatinine 1 .4 upon this admission. Patient denied taking any nonsteroidal. No IV contrast. The patient was started on IV Lasix, slightly feeling better but still short winded. Past Medical History: Include: 1.Rheumatoid arthritis. 2.Hypertension. 3.Hyperlipidemia. 4.Diabetes complicated with neuropathy and nephropathy. 5.Chronic kidney disease stage 3 secondary to hypertension, nephrosclerosis, diabetic nephropathy, n ormal to small size kidney 05/12. Proteinuric, nonnephrotic. 6.Iron-deficiency anemia. 7.Congestive heart failure. Ejection fraction of 35%. As by echocardiogram done last admission. Allergies: CODEINE AND TRAMADOL. Social History: Denies smoking, denies drinking, denies drug abuse. Family History: Positive for hypertension. Surgical History: 1.Total knee replacement. 2.Cholecystectomy. Review of Systems: Head and Neck: No red eye. No ear pain. GI: No nausea. No vomiting. : No polyuria. No dysuria. No hematuria. 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 Respiratory: Has shortness of breath. Has orthopnea. Cardiovascular: Has leg swelling, orthopnea. Endocrine: No polydipsia. Skin: No rash. Neuro: Has neuropathy. Musculoskeletal: Low back pain. Physical Examination: Vital Signs: When I saw the patient, patient lying in bed, on nasal cannula. Blood pressure of 179/ 76, pulse of 66, afebrile. Patient had voided multiple times. Chest: Crackles bilateral base. Heart: S1, S2 systolic murmur. Abdomen: Soft, nontender. Extremities: +2 edema. Laboratory Data: Sodium 146, potassium 4.2, bicarb 23, BUN 37, creatinine 1.4. Calcium 8.5, magnesi um 2.1. BNP 33,000. Iron saturation 8.4, ferritin of 53. WBC 5.5, H and H 10/32.2, platelets of 15 0. Serum protein electrophoresis within normal limits. Serology was negative except JOELLE . The rest of the serology was negative. PTH 198. Vitamin D2 less than 8, total of 57. Current Medications: The patient on include: 1.Atorvastatin. 2.Carvedilol 12.5. 3.Sorbitol. 4.Valsartan. 5.Entresto b.i.d. 6.Temazepam. 7.Lasix 20 b.i.d. Assessment And Plan: 1.Chronic kidney disease stage 3 secondary to cardiorenal/diabetic nephropathy, proteinuric, nonneph rotic on the over volume side with congestive heart failure exacerbation. I am going to go ahead and increase Lasix to 40 mg b.i.d. We will give extra dose of Lasix today. We will add nitroglycerin p atch and I am going to add Aldactone to her regimen and will follow up. 2.Hypertension, not controlled. We are adding Aldactone. Increase Lasix and add nitroglycerin. Co ntinue Entresto. We will follow up with Primary and Cardiology. 3.Edema anasarca. Workup was done before. TSH within normal limit. Mostly it is cardiorenal. As above, we will optimize her diuresis. 4.Secondary hyperpara. Calcium and phosphorus on the goal. I do not see the need for vitamin D joelle log. 5.Iron-deficiency anemia. I will start the patient on IV iron. 6.Congestive heart failure exacerbation as by Cardiology. 7.Diabetes as by primary. DOMINIQUE/FRANCOISE Voice ID: [id number] Report ID: [id number]
--- NOTE | 2020-01-19 13:17 | P.PN ---
Subjective Date of Service: 01/19/20 Primary Care Provider: Dr. Hernandez Chief Complaint: CHF exacerbation Subjective: No new changes, Tolerating diet, Improving Patient states she is feeling a little bit better today but still with some shortness of breath. Review of Systems General: Unremarkable Eyes: Unremarkable ENT: Unremarkable Respiratory: Shortness of Breath, As per HPI Cardiovascular: Unremarkable Gastrointestinal: Unremarkable Genitourinary: Unremarkable Musculoskeletal: Unremarkable Integumentary: Unremarkable Neurological: Unremarkable Physical Examination - Vital Signs Temperature: 97.7 F Blood Pressure: 169/72 Pulse: 72 Respirations: 18 Pulse Ox (%): 96 - Physical Exam General: Alert, In no apparent distress, Oriented x3 HEENT: Atraumatic, Normocephalic Neck: Supple Respiratory: Normal air movement, Diminished (Bilaterally) Cardiovascular: Regular rate/rhythm, Normal S1 S2 Capillary refill: <2 Seconds Gastrointestinal: Normal bowel sounds, Soft and benign Musculoskeletal: No erythema, No tenderness, No warmth Integumentary: No significant lesion Neurological: Normal speech, Normal tone - Studies Laboratory Data (last 24 hrs) 01/19/20 03:41: Sodium 146 H, Potassium 4.2, BUN 37 H, Creatinine 1.43 H, Glucose 89, Magnesium 2.1 01/19/20 03:41: WBC 5.5 D, Hgb 10.0 L, Hct 32.2 L, Plt Count 155 01/18/20 13:00: PT 14.8 H, INR 1.26 01/18/20 13:00: WBC 7.5, Hgb 10.6 L, Hct 33.6 L, Plt Count 174 01/18/20 13:00: Sodium 145, Potassium 4.5, BUN 36 H, Creatinine 1.40 H, Glucose 87, Magnesium 2.3, Total Bilirubin 1.0, AST 25, ALT 47, Alkaline Phosphatase 123 H Assessment & Plan Discharge Plan: Home Plan to discharge in: 24 Hours - Code Status/Comfort Care Code Status Assessed: Yes (Patient is full code) Physician Review Additional Text: Assessment Acute on chronic systolic heart failure Stage III chronic kidney disease Hypertension Hyperlipidemia Diabetes mellitus type 2 Asthma Rheumatoid arthritis GERD Plan Acute on chronic systolic heart failure: Will continue patient's diuresis, Nephrology has seen patient and increased dose of Lasix to 40 mg IV b.i.d. and added Aldactone to patient's regimen. Cardiology has seen patient and plans to perform cardiac catheterization tomorrow morning. Anticipate patient to be discharged as early as tomorrow if there is no intervention needed or the next day if patient has stent placement. Stage III chronic kidney disease: Nephrology has seen this patient. Has increased Lasix dose and added Aldactone. Will continue to monitor renal function. Appreciate further input from nephrology. Hypertension: Patient has had Aldactone and Entresto added. Will continue to monitor patient's renal function and vital signs. Hyperlipidemia: Will continue patient's home medication and adjust as needed. Diabetes mellitus type 2: Will obtain a.c. HS Accu-Cheks and place patient on sliding scale insulin therapy. Asthma: Will obtain and continue patient's home medications. Rheumatoid arthritis: Will obtain and continue patient's home medications. GERD: Will obtain and continue patient's home medications, will provide PPI therapy during this hospitalization. Time Spent Managing Pts Care (In Minutes): 55
[2020-01-19] MEDS: FUROSEMIDE 40 MG/4 ML VIAL IV SCH (17:26)
[2020-01-19] MEDS: ATORVASTATIN 20 MG TAB PO SCH (22:15)
--- NOTE | 2020-01-19 22:30 | CON ---
Date of Consultation: 01/19/2020 Reason For Consultation: Congestive heart failure. History Of Present Illness: Ms. Finney is an 84-year-old black woman that we saw in the hospital rec ently as well as in the office. She has known hypertension, diabetes, dyslipidemia, and COPD. She h as a history of rheumatoid arthritis and gastroesophageal reflux disease, developed acute onset systo lic congestive heart failure approximately a month ago. She had had positive troponin the n. She was being treated with Avapro, metoprolol, and Lasix. She was also on Lipitor and inhalers, but came back last night with PND, orthopnea, pedal edema. No palpitation, no syncope. She denied a ny fever or chills or cough. Has some chest tightness radiating to both of her shoulders with diapho resis. Denies nausea and vomiting. Past Medical History: As stated above. Allergies: SHE IS ALLERGIC TO CODEINE. Medications: Listed earlier. Review of Systems: Negative. Social History: Negative. Family History: Noncontributory. Physical Examination: General: Ms. Finney has diuresed, but continued to be edematous and short of breath. Vital Signs: Stable. She was afebrile. She was in the sinus rhythm. HEENT: Negative. Neck: Supple without any bruit, lymphadenopathy, JVD, or thyromegaly. Chest: Revealed rales in both bases. Cardiac: Revealed a regular rhythm and rate with S3 gallops. No murmurs or rubs. Abdomen: Benign. Extremities: Revealed 2+ edema to the knee. Pulses were present distally bilatera lly. Neurologic: She was nonfocal. Skin: Dry and intact. Diagnostic Data: Her EKG showed LVH and nonspecific changes. Her creatinine is 1.4. Her chest x-ra y showed CHF. Echocardiogram showed an ejection fraction of 35%. BNP was 33,686. Impression And Plan: New-onset congestive heart failure, failed therapy. There is acute exacerbatio n of systolic congestive heart failure. I think, Ms. Finney need to have her coronaries evaluated. We will plan a heart catheterization for 01/20/2020. She understands the risks and the benefits of t he procedure and she agrees to proceed. She is presently on Plavix, Lipitor. I think we need to sta rt Coreg and Entresto and increase her IV Lasix. She will need Mucomyst before and after the cathete rization because of her creatinine. We will follow her I's and O's and daily weight. Her diabetes, dyslipidemia, COPD, rheumatoid arthritis, and gastroesophageal reflux disease are stable. We will se e what her catheterization shows prior to making final decisions. I am hoping Entresto, Coreg, and t he Lasix combination will improve her EF down the road. AMY/FRANCOISE Voice ID: [id number] Report ID: [id number]
[2020-01-20 04:12] LABS: Absolute Lymphocytes (CBC) 0.9 K/uL (0.7-4.9); Basophils % 0.4 % (0-1.3); Hematocrit 33.3 % (36.0-45.0); Lymphocytes % 17.1 % (15.3-44.8); MPV 9.3 fL (7.6-11.3); RBC Red Blood Cell Count 3.77 M/uL (3.86-4.86)
[2020-01-20 04:40] LABS: Magnesium 1.7 mg/dL (1.8-2.4); Potassium 3.6 mmol/L (3.5-5.1)
[2020-01-20] MEDS: carvediloL 12.5 MG TAB PO SCH (06:31)
[2020-01-20] MEDS: CLOPIDOGREL 75 MG TABLET PO SCH (06:31)
[2020-01-20] MEDS: FUROSEMIDE 40 MG/4 ML VIAL IV SCH (08:38)
[2020-01-20] MEDS: SUCRALFATE 1 GM TABLET PO SCH (09:00)
[2020-01-20] MEDS ORDERED: KCL 20 MEQ/100 mL IVPB 20 MEQ/100 ML BAG IV SCH (09:00)
[2020-01-20] MEDS: SACUBITRIL/VALSARTAN 24/26 MG TAB PO SCH (09:00)
[2020-01-20] MEDS: HEPARIN 5000 UNIT/ML 1 ML VIAL SQ SCH (09:00)
[2020-01-20] MEDS ORDERED: MAGNESIUM SULFATE 1 gm IVPB 1 GM/100 ML BAG IV ONE (09:00)
[2020-01-20] MEDS ORDERED: SPIRONOLACTONE 25 MG TABLET PO SCH (09:00)
[2020-01-20] MEDS: NITROGLYCERIN 0.4 MG/HR (10 MG) PATCH TD SCH (10:02)
[2020-01-20] MEDS ORDERED: NA CHLORIDE 0.9% 500 ML ONE ×2 (10:21→18:26)
[2020-01-20] MEDS ORDERED: MIDAZOLAM HCL 2 MG/2 ML INJ ONE ×3 (10:54→17:37)
[2020-01-20] MEDS ORDERED: ATROPINE SULF 1 MG/10 ML SYR IV ONE ×2 (10:54→17:37)
[2020-01-20] MEDS ORDERED: FENTANYL CITR 100 MCG/2 ML ONE ×2 (10:54→17:37)
[2020-01-20] MEDS ORDERED: NA CHLORIDE 0.9% 50 ML ONE (10:54)
[2020-01-20] MEDS ORDERED: ACETYLCYST 20% 800 MG/4 ML VIAL PO ONE (11:00)
[2020-01-20] MEDS ORDERED: NITROGLYCERIN 100 MCG/ML SYR (for cath lab use only) IV ONE (11:38)
[2020-01-20] MEDS ORDERED: NITROGLYCERIN/D5W 25 MG/250 ML BTL IV ONE (11:38)
[2020-01-20] MEDS ORDERED: POTASSIUM CL SA 10 MEQ TAB PO ONE (11:42)
[2020-01-20] MEDS ORDERED: NITROGLYCERIN 0.4 MG/TAB SL ONE (12:05)
[2020-01-20] MEDS ORDERED: cloNIDine HCL 0.1 MG TAB ONE (12:07)
[2020-01-20] MEDS ORDERED: PRASUGREL (EFFIENT) 10 MG TAB ONE (12:08)
[2020-01-20] MEDS ORDERED: NA CHLORIDE 0.9% 500 ML IV ONE (15:12)
[2020-01-20 17:00] VITALS: O2SAT 100
[2020-01-20] MEDS ORDERED: VECURONIUM 10 MG/VIAL IV ONE (17:30)
[2020-01-20] MEDS ORDERED: MAGNESIUM SULF 1GM/2ML VIAL ONE (17:30)
[2020-01-20] MEDS ORDERED: NA CHLORIDE 0.9% 0 ML ONE (17:32)
[2020-01-20] MEDS ORDERED: NOREPINEPHRINE 4 MG in D5W 250 ML IV PRN (17:32)
[2020-01-20] MEDS ORDERED: HEPARIN 5000 UNIT/ML 1 ML VIAL ONE (17:36)
[2020-01-20] MEDS ORDERED: HEPA 1000U/500MLS 0 UNIT/0 ML BAG IV ONE (17:39)
[2020-01-20] MEDS ORDERED: LIDOCAINE 1% MPF 30 ML VIAL ONE (17:40)
[2020-01-20 17:45] VITALS: BP 123/83; TEMP 98.1
[2020-01-20] MEDS ORDERED: HEPA 1000U/500MLS 2,000 UNIT/1,000 ML BAG IV ONE (17:45)
[2020-01-20] MEDS ORDERED: carvediloL 25 MG TAB PO SCH (18:00)
[2020-01-20] MEDS ORDERED: EPINEPHrine 4 MG in NA CHLORIDE 0.9% 250 ML IV PRN (18:08)
[2020-01-20] MEDS ORDERED: NA CHLORIDE 0.9% 1,000 ML ONE (18:26)
[2020-01-20] MEDS ORDERED: ETOMIDATE 20 MG/10 ML VIAL IV ONE (18:28)
[2020-01-20] MEDS ORDERED: Phenylephrine HCl 10 MG/ML 1 ML VIAL ONE (18:49)
[2020-01-20] MEDS ORDERED: D5W 250 ML IV ONE ×2 (18:51→22:09)
[2020-01-20] MEDS ORDERED: NA CHLORIDE 0.9% 100 ML IV ONE ×2 (18:56→19:04)
[2020-01-20 19:09] LABS: Arterial Blood Carboxyhemoglob 1.8 % (0-1.5); Blood Gas Oxyhemoglobin 98.1 % (94-97)
--- NOTE | 2020-01-20 19:22 | PN ---
Date of Progress Note: 01/20/2020 Subjective: The patient was admitted with CHF exacerbation. Patient undergo cardiac cath today. The patient had been diuresed expressively. Patient seen after cardiac cath. Physical Examination: Vital Signs: Blood pressure 139/53, pulse of 86, afebrile. Chest: Faint rales on the left base. Heart: S1, S2. Regular. Systolic murmur. Abdomen: Soft, nontender. Extremities: +2 edema. Laboratory Data: H and H 10.6/33.3. Sodium 146, potassium 3.6, bicarb 26, BUN 32, creatinine 1.3, c alcium 8.4. Magnesium 1.7. Current Medications: The patient is on include Entresto, oral Lasix 40 b.i.d., spironolactone, IV ir on, Plavix, carvedilol 12.5, atorvastatin, Carafate. Assessment And Plan: 1.Acute kidney injury secondary to cardiorenal with exposure to contrast today. I am going to hold on the diuresis for today. We will resume it tomorrow. Hold Entresto, Lasix, and spironolactone. 2.We will start the patient gentle hydration 50 per hour for only 10 hours and we will monitor the p atient. 3.Hypertension. Controlled optimal giving contrast and recent acute kidney injury. We will hold on the diuresis. We will resume it tomorrow. Hold Entresto. 4.Congestive heart failure, [id number]-DT-[id number] myocardial infarction, status post stent as above. 5.Hypokalemia, hypomagnesemia, we will supplement. JESSIE Voice ID: [id number] Report ID: [id number]
--- NOTE | 2020-01-20 20:56 | P.PN ---
Subjective Date of Service: 01/20/20 Primary Care Provider: Dr. Hernandez Chief Complaint: CHF exacerbation Subjective: Other (Code blue called to patients room. Patient was found unresponsive. Code team arrive. CPR initiated. Patient had heart cath earlier with stent placed. ER team intubated patient. Spoke to Cardiology, then cardiology arrived to stabilize the patient. Once stable she was sent to the heart laborer heading. She then coded there in preparation for hearth cath. She was revived again. Once stable, heart cath done showing no blockage of the stent that was placed earlier in the day. During the cath, she coded again and stabilized. She was started on vasopressors. During this time I continued to update family of her progress. After heart done, lab showed that she was acutely anemic. Etiology unknown. She was given stat blood transfusion times 2. She was then started on 3rd vasopressor. She is now stable. Cased discussed again with daughters. Advanced directives addressed in detail. They understand that her condition is poor. They both understand that her condition could continue to decline. They understand she is currently intubated and on 3 vasopressors and getting more blood. After a long discussion, her daughter who makes the decisions have made her DNR. Both Dr. Stoddard and I spoke to the daughter at length of the patients progress and plan of care. Patient is stable and will go to the ICU.) Physical Examination - Vital Signs Temperature: 98.1 F Blood Pressure: 123/83 Pulse: 86 Respirations: 16 Pulse Ox (%): 100 - Physical Exam General: Other (patient is intubated. ) Respiratory: Clear to auscultation bilaterally Cardiovascular: Normal pulses, Regular rate/rhythm Other Physical/Emotional Findings: she is frail appearing. - Studies Medications List Reviewed: Yes Assessment & Plan Physician Review Additional Text: Assessment Patient unresponsive, status post CPR requiring multiple meds/blood transfusion and re-heart catheterization showing no stenosis of earlier stent placed, suspect abnormal arrythmia led to unresponse. Acute Respiratory Failure status post CPR likely related to acute on chronic systolic CHF/CAD Acute blood loss anemia, etiology unknown Suspect now with multiorgan failure-Renal/Liver/Heart Hypertension Hyperlipidemia Diabetes mellitus type 2 Asthma Rheumatoid arthritis GERD Plan Patient now stable after CPR times 3, Re-heart catheterization, blood transfusion, intubation and vasopressor therapy. She will go to ICU. Continue to monitor. Patient now DNR. Dr. Chaudhari consulted for ICU and vent management. Will discuss with Nephrology. SPoke at length to Cardiology-Dr. Desai and Dr. Stoddard. Spoke to daughters at length of plan of care. Patient critical with grave condition. Spoke to Metal Neutralizer who will continue to monitor and care for the patient tonight. Critical care time: 2 hours Critical Care: Yes (2 hours)
[2020-01-20] MEDS ORDERED: NA CHLORIDE 0.9% 1,000 ML IV ONE (22:09)
[2020-01-20] MEDS ORDERED: MAGNESIUM SULF 1GM/2ML VIAL IV ONE (22:09)
[2020-01-20] MEDS ORDERED: EPINEPHrine 1 MG/10 ML SYR IV ONE ×2 (22:09)
[2020-01-20] MEDS ORDERED: DOBUTAMINE 250 MG/250 ML BAG IV ONE (22:09)
--- NOTE | 2020-01-20 22:13 | OP ---
Surgeon: Loyd Stoddard MD History: The patient admitted to Dr. Herrmann on 01/18/2020. She has a new onset acute systolic conge stive heart failure with exacerbation. She had abnormal EKG, continues to have chest tightness and d yspnea on exertion, brought to the director of cardiac cath lab today to rule out coronary artery disease. She was prepp ed and draped in the routine sterile fashion. She was brought to the director of cardiac cath lab as an inpatient. She was given Versed for sedation. A 6-Swedish sheath introduced in the right common femoral artery. Ang iography with Fidelia catheter revealed an 80% mid LAD stenosis, 80% proximal RCA stenosis, normal ci rcumflex. She was right-hand dominant. She had some oecl-fh-oytdleta left main plaquing. Intervent ion on the LAD was decided. We used we an XB LAD 3.5 with side-hole guide. A 0.014 guidewire cougar lesion was crossed successfully without any difficulties. A 3.0 x 16 stent was deployed in the mid LAD across the second diagonal. Another 3.0 x 12 Synergy stent was overlapped with the previous sten t. These were dilated to 12 atmospheres for 30 seconds with 0% residual. The second diagonal was sm all and had poor flow after the stent. The patient tolerated the procedure well. There were no comp lications. Blood Loss: 5 mL. Postoperative Diagnoses: Coronary artery disease, congestive heart failure, status post successful p rimary stent of the mid left anterior descending. We will plan to do an RCA stent in a staged manner probably do it sometime next week. Her creatinine is 1.4. She has received Mucomyst prior to the procedure. The patient received Angiomax, aspirin, and Effient during the procedure. She will remain in the hospital overnight. We will send her home tomorrow. I will plan an RCA stent next week. AMY/FRANCOISE Voice ID: [id number] Report ID: [id number]
--- NOTE | 2020-01-21 19:28 | PN ---
Date of Progress Note: 01/20/2020 Addendum: Ms. Finney had been admitted for chest pain, new onset systolic congestive heart failure. Recent epi sode of ventricular tachycardia that is nonsustained, taken to the labor training manager on 01/20/2020 to rule out ischemic coronary artery disease. She was found to have approximately 70% proximal RCA. She had se john mid LAD disease. She underwent 2 stents Synergy with 0% residual, actually did extremely well d uring the procedure without any complications then. At that time when we were done, she had no arrhy thmias, she was slightly hypertensive, was treated with clonidine and I believe hydralazine. She had no evidence of bleeding or hematoma. She had gone to the telemetry unit in good stable condition. However about 4 o'clock in the evening on 01/20/2020, she was noted on telemetry to be in torsade de pointes and then was found to have an electromechanical dissociation rhythm with a rhythm, but no pul se and was coded for approximately 2 hours total. She regained a pulse and was intubated on the floo r after a prolonged code. She was taken to the labor training manager. Emergency catheterization was done by Dr. Desai via left groin approach and this showed that the LAD stents were patent. There were no thromb osis. Stat echocardiogram, which was done revealed complete akinesis of her left ventricle. There w ere no pericardial effusion. Angiography in the right common femoral artery did not reveal any extra vasation. The patient was noted to be anemic and 4 units of blood transfusion were ordered, 2 were g iven while she was there. She remained in very critical condition hypotensive on maximum pressors in cluding epinephrine, dopamine, and dobutamine. Discussion with the family in detail regarding her co ndition resultant in the family agreeing to make her do not resuscitate. The patient was moved from the labor training manager to the ICU and about 2 hours later. I believe Ms. Finney's main event is electr omechanical dissociation secondary to severe congestive heart failure, cardiomyopathy, coronary arter y disease. The case was discussed in detail with Dr. Herrmann and Dr. Desai, who assisted in the events. NB/MODL Voice ID: [id number] Report ID: [id number]
--- NOTE | 2020-01-23 03:15 | P.DS ---
Discharge Date: 01/20/20 Primary Care Provider: Dr. Hernandez Disposition: Discharge Condition: Reason for Admission: CHF exacerbation Consultations: Cardiology Brief History of Present Illness: 84-year-old female with history of CHF, hypertension, hyperlipidemia, diabetes mellitus, rheumatoid arthritis presented to the emergency department with a 2 months history of shortness of breath worsening in nature. Patient reports that she has a low difficulty at night and has not been sleeping these past few days. Patient also reports that she is scheduled to have a heart catheterization with her telephone sales agent on . During her evaluation in the emergency department patient was found to have mild to moderate volume overload. ED provider wishes to admit patient for further evaluation and management this condition. When I saw the patient in the emergency department she appeared comfortable, in no apparent distress. Patient did not require oxygen at this time. Patient will be admitted for further evaluation management. Hospital Course: Patient required cardiac catheterization. Patient had 2 stents placed. Patient was doing okay postoperatively. However, she had a cardiac arrest. She was resuscitated and taken back to the qc lab technician with no evidence of any abnormalities. Unfortunately, patient had another episode were she had to be resuscitated. The family decided they did not want her to be resuscitated any further. Patient unfortunately this evening. Family was at bedside when patient . Other Physical/Emotional Findings: she is frail appearing. Home Medications: Atorvastatin Calcium 20 mg PO BEDTIME 01/04/20 Irbesartan 300 mg PO DAILY 01/04/20 Metoprolol Tartrate 100 mg PO DAILY 01/04/20 Sucralfate [Carafate -Tab] 1 gm PO BID 01/18/20 Patient Discharge Instructions: Patient Time spent managing pt's care (in minutes): 10
== END 2020-01-20 22:10 | disposition expired | DRG 246 ==
LOC: ER 11:01 → 2ND 15:37 → OBSVTOIN 01-19 13:08 → 3RD-ICU 01-20 18:50
PROVIDERS: ADMIT Family Medicine; ATTEND Family Medicine
PROC: 027035Z Dilation of Coronary Artery, One Artery with Two Drug-eluting Intraluminal Devices, Percutaneous Approach (ICD-10-PCS; principal; 2020-01-20)
PROC: 4A023N7 Measurement of Cardiac Sampling and Pressure, Left Heart, Percutaneous Approach (ICD-10-PCS; 2020-01-20)
PROC: B2111ZZ Fluoroscopy of Multiple Coronary Arteries using Low Osmolar Contrast (ICD-10-PCS; 2020-01-20)
PROC: 5A12012 Performance of Cardiac Output, Single, Manual (ICD-10-PCS; 2020-01-20)
PROC: 30233N1 Transfusion of Nonautologous Red Blood Cells into Peripheral Vein, Percutaneous Approach (ICD-10-PCS; 2020-01-20)
DX: I13.0 Hypertensive heart and chronic kidney disease with heart failure and stage 1 through stage 4 chronic kidney disease, or unspecified chronic kidney disease (principal); I50.23 Acute on chronic systolic (congestive) heart failure; J96.00 Acute respiratory failure, unspecified whether with hypoxia or hypercapnia; I21.4 Non-ST elevation (NSTEMI) myocardial infarction; D62 Acute posthemorrhagic anemia; N17.9 Acute kidney failure, unspecified; N25.81 Secondary hyperparathyroidism of renal origin; N18.3 Chronic kidney disease, stage 3 (moderate); E11.22 Type 2 diabetes mellitus with diabetic chronic kidney disease; E78.5 Hyperlipidemia, unspecified; J45.909 Unspecified asthma, uncomplicated; Z96.651 Presence of right artificial knee joint; Z96.641 Presence of right artificial hip joint; Z90.49 Acquired absence of other specified parts of digestive tract; Z90.710 Acquired absence of both cervix and uterus; Z20.820 Contact with and (suspected) exposure to varicella; Z60.2 Problems related to living alone; Z88.5 Allergy status to narcotic agent; Z79.02 Long term (current) use of antithrombotics/antiplatelets; Z79.899 Other long term (current) drug therapy; Z79.52 Long term (current) use of systemic steroids; M06.9 Rheumatoid arthritis, unspecified; K21.9 Gastro-esophageal reflux disease without esophagitis; I42.9 Cardiomyopathy, unspecified; I25.10 Atherosclerotic heart disease of native coronary artery without angina pectoris; Z66 Do not resuscitate; E87.6 Hypokalemia; E83.42 Hypomagnesemia; J44.9 Chronic obstructive pulmonary disease, unspecified; D50.9 Iron deficiency anemia, unspecified
CPT/HCPCS: 36415; 71045; 80048; 80076; 82805; 82947; 83735; 83880; 84484; 85014; 85018; 85025; 85347; 85610; 86850; 86900; 86901; 93005; 93454; 96374; 99285; C1725; C1877; C1893; C9600; G0378; J0171; J0583; J1250; J1644; J1940; J2250; J2370; J2916; J3010; J3475; J7030; J7040; J7060; P9016; U0002